=== PATIENT | female | born 1975 | race Caucasian/White ===

== ENCOUNTER 2017-02-21 11:50 | Day surgery (SDC) | payer OTHER ==
[2017-02-18 08:34] VITALS: BMI 26.6
[~2017-02-21 11:50] MED LIST: LACTATED RINGERS 1,000 ML IV SCH
[2017-02-21] MEDS ORDERED: LACTATED RINGERS 1,000 ML IV ONE (12:20)
[2017-02-21] MEDS ORDERED: LIDOCAINE 1% 20 ML VIAL (10MG/ML) FOR IV START INTRADERMA ONE (12:21)
[2017-02-21 12:25] VITALS: RESP 18; TEMP 98
[2017-02-21] MEDS ORDERED: PROPOFOL 10 MG/ML 20 ML VIAL IV ONE (13:04)
[2017-02-21] MEDS ORDERED: LIDOCAINE 1% INJ 10MG/ML (20 ML MDV) ONE (13:04)
[2017-02-21 13:51] VITALS: BP 122/88; PULSE 64
--- NOTE | 2017-02-21 13:52 | P.PCN ---
Date of Procedure: 02/21/17 Procedure(s) Performed: Procedure: 1. Esophagogastroduodenoscopy and biopsy. 2. Colonoscopy and biopsy. Preoperative diagnosis: Epigastric pain and diarrhea. Postoperative diagnosis: 1. Very small sliding hiatal hernia with no obvious esophagitis or complicated reflux disease. 2. Mild antral gastritis. 3. Colon and terminal ileum within normal limits. 4. Biopsies obtained from the duodenum , antrum, esophagus, terminal ileum and right colon. Preparation: HalfLytely prep. Sedation: Was provided by anesthesia. Brief clinical history: The patient is a 41-year-old female who was evaluated in the office for the above complaints and scheduled for this evaluation to assess for inflammatory bowel disease or other etiology. Procedure: With the patient on her left lateral decubitus position and after informed consent and adequate sedation, I passed the Olympus-GIF 160 video upper endoscope through the cricopharyngeus down the esophagus. GE junction was around 38-39 cm from the incisors and there was a very small sliding hiatal hernia. The esophagus did not show any erosions, ulcers, strictures or Zaman' s esophagus. The endoscope was then passed into the stomach which was insufflated with air and inspected in detail including the retroflex view in the cardia. There was mottling and erythema in the antrum consistent with gastritis but no ulcers or erosions. Pyloric channel, duodenal bulb, post bulbar area and descending duodenum appeared within normal limits. I obtained biopsies from the duodenum, antrum and esophagus then the endoscope was withdrawn then I proceeded with the colonoscopy. Perianal area did not show any fissures or fistulas. There were no masses felt on digital rectal examination. The Olympus CFQ 160L video colonoscope was then inserted in the rectum in the usual fashion and advanced to the cecum. I intubated the ileocecal valve and examined the terminal ileum. Terminal ileum and colon appeared healthy with no edema, erythema, friability, ulceration, exudation or spontaneous bleeding. I obtained biopsies from the terminal ileum and right colon then I retroflexed endoscope in the rectum before the endoscope was withdrawn. The patient tolerated the procedure well. Plan: The patient was reassured. Will await biopsy results and make further plans based on her course and biopsy results. I will keep you updated on her progress.
== END 2017-02-21 14:16 | disposition home or self-care (01) ==
LOC: ORWHC2ENDO 11:50
DX: K29.50 Unspecified chronic gastritis without bleeding (principal); K44.9 Diaphragmatic hernia without obstruction or gangrene; R19.7 Diarrhea, unspecified; Z72.0 Tobacco use; M79.7 Fibromyalgia; Z79.899 Other long term (current) drug therapy; Z88.1 Allergy status to other antibiotic agents; Z88.0 Allergy status to penicillin; Z88.8 Allergy status to other drugs, medicaments and biological substances
CPT/HCPCS: 88305; 88342; 45380; 43239; J2001; J2704

== ENCOUNTER 2017-05-30 16:57 | Observation (INO) | payer OTHER ==
[2017-05-30] MEDS ORDERED: SODIUM CHLORIDE 0.9% 1,000 ML IV STA (17:41)
[2017-05-30] MEDS ORDERED: ASPIRIN 81 MG CHEW PO STA (17:41)
[2017-05-30] MEDS ORDERED: MORPHINE SULFATE 4 MG/ML SYRINGE IV STA (17:41)
[2017-05-30] MEDS ORDERED: RX INFO: IV CONTRAST WAS GIVEN 1 EACH MISC MISCELLANE PRN (17:42)
[2017-05-30 17:57] LABS: Basophils # (A) 0.1 k/uL (0-0.2); Basophils % (A) 1 %; CH 30.4; CHCM 34.1; Eosinophils # (A) 0.2 k/uL (0-0.7); Eosinophils % (A) 2 %; HCT 42.4 % (34.0-46.0); HDW 2.28; HGB 14.9 gm/dL (11.4-16.0); Luc # (Auto) 0.18; Luc % (Auto) 2; Lymphocytes # (A) 3.6 k/uL (1.0-4.8); Lymphocytes % (A) 38 %; MCH 31.5 pg (25.0-35.0); MCHC 35.2 g/dL (31.0-37.0); MCV 89.5 fL (80.0-100.0); Monocytes # (A) 0.3 k/uL (0-1.0); Monocytes % (A) 3 %; Neutrophils # (A) 5.2 k/uL (1.3-7.7); Neutrophils % (A) 55 %; RBC 4.74 m/uL (3.80-5.40); RDW 12.6 % (11.5-15.5); WBC 9.6 k/uL (3.8-10.6)
[2017-05-30 18:08] LABS: HCG,Qualitative Serum Not Detected
[2017-05-30 18:12] LABS: ALT 36 U/L (9-52); AST 24 U/L (14-36); Alkaline Phosphatase 70 U/L (38-126); Anion Gap 9 mmol/L; Blood Urea Nitrogen 9 mg/dL (7-17); Calcium 9.4 mg/dL (8.4-10.2); Carbon Dioxide 23 mmol/L (22-30); Chloride 107 mmol/L (98-107); Glucose 96 mg/dL (74-99); Non-African American GFR(MDRD) >60 (>60 ml/min/1.73 sqM); Potassium 4.1 mmol/L (3.5-5.1); Sodium 139 mmol/L (137-145); Total Bilirubin 0.5 mg/dL (0.2-1.3); Total Protein 6.9 g/dL (6.3-8.2)
[2017-05-30 18:14] LABS: Partial Thromboplastin Time 25.9 sec (22.0-30.0); Prothrombin Time 10.4 sec (9.0-12.0)
[2017-05-30 18:22] LABS: Creatine Kinase 74 U/L (30-135)
[2017-05-30 18:35] LABS: Creatine Kinase MB 0.7 ng/mL (0.0-2.4); Troponin I <0.012 ng/mL (0.000-0.034)
--- NOTE | 2017-05-30 18:43 | CT ---
EXAMINATION TYPE: CT angio chest DATE OF EXAM: 05/30/2017 6:35 PM COMPARISON: 12/30/2015 HISTORY: Left sided chest pain radiating to jaw and shoulder. History of thoracic aortic aneurysm. CT DLP: 249.30 mGycm Automated exposure control for dose reduction was used. CONTRAST: CTA scan of the thorax is performed with IV Contrast, patient injected with 74 mL of Omnipaque 350, p ulmonary embolism protocol. There are 3-D post processed images.. FINDINGS: The lungs are clear of consolidation. There is no evidence of a pulmonary mass. There is no pleural e ffusion. The heart size is normal. There is no mediastinal adenopathy. There are no hilar masses. I see no brittni ling defects in the pulmonary arteries. There is mild aneurysm of the ascending aorta that measures 4 cm. There is no sign of dissection. There is no pericardial effusion. IMPRESSION: NO EVIDENCE OF PULMONARY EMBOLISM. 4 CM MILD ANEURYSM OF THE ASCENDING AORTA. NO CHANGE COMPARED TO O LD EXAM.
[2017-05-30] MEDS ORDERED: MORPHINE SULFATE 4 MG/ML SYRINGE IVP STA (19:00)
[2017-05-30] MEDS ORDERED: LORazepam 2 MG/ML SYRINGE IV STA (19:07)
[2017-05-30] MEDS ORDERED: NITROGLYCERIN SL TABS 0.4 MG TAB SUBLINGUAL PRN (19:43)
[2017-05-30] MEDS ORDERED: HEPARIN SODIUM,PORCINE 5,000 UNIT/ML 1 ML VIAL IV ONE (19:43)
[2017-05-30] MEDS ORDERED: HEPARIN SODIUM,PORCINE 5,000 UNIT/ML 1 ML VIAL IV PRN (19:43)
[2017-05-30] MEDS ORDERED: MORPHINE SULFATE 4 MG/ML SYRINGE IV PRN (19:43)
--- NOTE | 2017-05-30 19:43 | ED ---
Chest Pain HPI - General Chief Complaint: Chest Pain Stated Complaint: Chest Pain, Difficulty Breathing Time Seen by Provider: 05/30/17 17:35 Source: patient Mode of arrival: wheelchair Limitations: no limitations - History of Present Illness Initial Comments: This 41-year-old white female presents complaining of some left-sided and midsternal chest pain. She states that it will radiate up into her neck and shoulder region. It is described as a sharp type pain. It occurred while at rest. It is somewhat worse with deep inspiration. She denies any leg pain or swelling. She denies any history of DVT or PE. She does state that it came on fairly suddenly. She has a history of a thoracic aortic aneurysm at approximately 4 cm. She relates that she has not required surgery for this as of yet but does follow up with our cardiology group. She had a stress test attempted within the past couple of years but was unable to completed as she cannot do the treadmill stress test and could not tolerate the chemical stress test. She has not had any heart catheterizations. She denies any other complaints or modifying factors. - Related Data Home Medications Medication Instructions Recorded Confirmed Sertraline [Zoloft] 25 mg PO HS 05/30/17 05/30/17 Allergies Allergy/AdvReac Type Severity Reaction Status Date / Time Penicillins Allergy Unknown Anaphylaxis Verified 05/30/17 17:54 ciprofloxacin [From Cipro] Allergy Unknown Verified 02/18/17 08:25 metronidazole [From Flagyl] Allergy Swelling Verified 02/18/17 08:25 naproxen Allergy Swelling Verified 02/18/17 08:25 meloxicam [From Mobic] AdvReac Unknown Slurred Verified 05/30/17 17:54 speech, muscle jerking, chest pain diphenhydramine HCl AdvReac Rapid Verified 05/30/17 17:54 [From Benadryl] Heart Rate ibuprofen [From Motrin] AdvReac stomach Verified 05/30/17 17:54 ulcers ketorolac tromethamine AdvReac Hallucinati Verified 05/30/17 17:54 [From Toradol] ons Review of Systems ROS Statement: Those systems with pertinent positive or pertinent negative responses have been documented in the HPI. ROS Other: All systems not noted in ROS Statement are negative. Past Medical History Past Medical History: Fibromyalgia, GERD/Reflux Additional Past Medical History / Comment(s): Migraines- occiptal neuralgia, Aortic Aneurysm, states hx of stomach ulcers., diarrhea. History of Any Multi-Drug Resistant Organisms: None Reported Past Surgical History: Appendectomy, Section, Cholecystectomy, Hysterectomy, Orthopedic Surgery Additional Past Surgical History / Comment(s): ankle and knee surgery. Past Anesthesia/Blood Transfusion Reactions: Motion Sickness, Postoperative Nausea & Vomiting (PONV) Past Psychological History: Anxiety, Depression Smoking Status: Current every day smoker Past Alcohol Use History: None Reported Past Drug Use History: Marijuana - Past Family History Mother Family Medical History: No Reported History General Exam - General Exam Comments Initial Comments: GENERAL: The patient is well nourished and well hydrated. VITAL SIGNS: Heart rate, blood pressure, respiratory rate reviewed as recorded in nurse's notes. EYES: Pupils are round and reactive. Extraocular movements are intact. No conjunctival / lid redness or swelling. ENT: No external evidence of injury, swelling, or ecchymosis. Airway is patent. Throat is clear. NECK: Nontender. No swelling or evidence of injury. No subcutaneous emphysema. Trachea is midline. No thyroid mass. HEART: Regular rate and rhythm. Good peripheral pulses. LUNGS/CHEST: Breath sounds clear and equal bilaterally. No rales, rhonchi, or wheezes. No ecchymosis, subcutaneous emphysema, or tenderness. ABDOMEN: Abdomen soft without tenderness. No palpable masses or organomegaly. No peritoneal signs. No abdominal wall swelling or ecchymosis. EXTREMITIES: No extremity tenderness. Normal muscle tone and function. No thoracolumbar tenderness. NEUROLOGIC: Sensation is grossly intact. Cranial nerve exam reveals face is symmetrical, tongue is midline, speech is clear. SKIN: No abrasions or ecchymosis is noted. No induration or masses noted. PSYCHIATRIC: Alert and oriented. Appears slightly anxious at times. Limitations: no limitations Course Vital Signs 05/30/17 05/30/17 05/30/17 17:02 17:20 18:57 Temperature 97.4 F L Pulse Rate 67 62 62 Respiratory 20 16 16 Rate Blood Pressure 123/79 133/93 141/91 O2 Sat by Pulse 99 98 99 Oximetry 05/30/17 19:15 Temperature Pulse Rate 58 L Respiratory 16 Rate Blood Pressure 148/100 O2 Sat by Pulse 99 Oximetry Chest Pain MDM - MDM The patient was seen and examined. All diagnostics were reviewed. An EKG was done which shows a normal sinus rhythm at a rate of 68. No acute ST-T wave changes are identified. The [place] interval is 144, QRS duration is 86, and the QTc interval is 423. The cardiac profile labs are all essentially within normal limits. The d-dimer is elevated. The patient had a computed tomography scan of the thorax with IV contrast and this does not show any evidence of pulmonary embolism. It does show evidence of a stable 4 cm thoracic aortic aneurysm. The exact cause of her pain is not definitively determined. The possibility of acute coronary syndrome certainly is possible. It is felt as though she would benefit from admission for further treatment. She did receive some morphine with limited relief. She later receives some Ativan with slight relief. The case is discussed with the hospitalist and they're agreeable to admission with cardiology to consult. Disposition Clinical Impression: Chest pain, Unstable angina, Elevated d-dimer Disposition: [facility] Condition: Fair Time of Disposition: 19:42 Decision Date: 05/30/17 Decision Time: 19:42
[2017-05-30] MEDS ORDERED: HEPARIN SODIUM,PORCINE/D5W PMX 25,000 UNIT in DEXTROSE/WATER 1 500ML.BAG IV SCH (19:45)
[2017-05-30 20:47] VITALS: RESP 16
[2017-05-30] MEDS ORDERED: SERTRALINE 25 MG TAB PO SCH (21:00)
[2017-05-30 21:11] VITALS: TEMP 97.7
[2017-05-30] MEDS ORDERED: HYDROcodone/APAP 5-325MG 1 EACH TAB PO PRN (21:57)
[2017-05-30 23:18] VITALS: BP 119/77; PULSE 62
[2017-05-30 23:36] LABS: Creatine Kinase 64 U/L (30-135)
[2017-05-30 23:48] LABS: Creatine Kinase MB 0.6 ng/mL (0.0-2.4); Troponin I <0.012 ng/mL (0.000-0.034)
[2017-05-31] MEDS ORDERED: NITROGLYCERIN OINT 1 INCH/GM PACKET TOPICAL SCH
[2017-05-31] MEDS ORDERED: ASPIRIN 325 MG TAB PO SCH (09:00)
--- NOTE | 2017-06-20 14:31 | HP ---
HISTORY AND PHYSICAL/DISCHARGE SUMMARY: This 41 year old woman was admitted with chest pain but however, the patient left the hospital against medical advice before being seen. Please refer to the ER notes and staff notes for further information. FINAL DIAGNOSES: 1. Chest pain, possible unstable angina. 2. Elevated d. dimer. MTDD
== END 2017-05-31 00:40 | disposition left against medical advice (07) ==
LOC: EC 16:57 → 3OBS 19:43
PROVIDERS: ADMIT Hospitalist; ATTEND Hospitalist
DX: R07.9 Chest pain, unspecified (principal); R79.89 Other specified abnormal findings of blood chemistry; I71.2 Thoracic aortic aneurysm, without rupture; Z79.899 Other long term (current) drug therapy; Z88.6 Allergy status to analgesic agent; Z88.1 Allergy status to other antibiotic agents; Z88.0 Allergy status to penicillin; Z88.8 Allergy status to other drugs, medicaments and biological substances; F41.9 Anxiety disorder, unspecified; F31.9 Bipolar disorder, unspecified; F17.200 Nicotine dependence, unspecified, uncomplicated; Z53.21 Procedure and treatment not carried out due to patient leaving prior to being seen by health care provider
CPT/HCPCS: 96375 ×3; 96376; 96374; 99285; 36415; 93005; 85379; 80053; 82550; 82553; 83735; 84484; 85025; 85610; 85730; 84703; 71275; G0378; J2060; J2270; J1644 ×2; Q9967

== ENCOUNTER 2017-05-31 16:47 | Observation (INO) | payer OTHER ==
[2017-05-31] MEDS ORDERED: HYDROmorphone 1 MG/ML 1 ML SYRINGE IVP STA (17:12)
[2017-05-31] MEDS ORDERED: NITROGLYCERIN OINT 1 INCH/GM PACKET TOPICAL STA (17:15)
--- NOTE | 2017-05-31 17:15 | ED ---
Chest Pain HPI - General Chief Complaint: Chest Pain Stated Complaint: Chest Pain Time Seen by Provider: 05/31/17 17:00 Source: patient, RN notes reviewed Mode of arrival: wheelchair Limitations: no limitations - History of Present Illness Initial Comments: Is a 41-year-old female who states having chest pains yesterday. She states that sharp stabbing left sternal radiating to her jaw and neck and also to her back and left arm. She she's never pain like this before she was actually admitted yesterday with apparently some issues with her daughter. She is back today complaining of persistent pain. She also has a thoracic aortic aneurysm was 4 cm she states is been stable. She did have a CAT scan yesterday it is unknown what results were. She states is nothing new with respect to pain she' s had no cough or phlegm production she is a smoker. States the pain does get worse with movements and deep breathing. It currently as 9/10 in severity. MD Complaint: chest pain - Related Data Home Medications Medication Instructions Recorded Confirmed Sertraline [Zoloft] 25 mg PO HS 05/30/17 05/31/17 Acetaminophen [Tylenol Arthritis] 1,950 mg PO DAILY PRN 05/31/17 05/31/17 Allergies Allergy/AdvReac Type Severity Reaction Status Date / Time Penicillins Allergy Unknown Anaphylaxis Verified 05/31/17 17:41 ciprofloxacin [From Cipro] Allergy Unknown Verified 05/31/17 17:41 metronidazole [From Flagyl] Allergy Swelling Verified 05/31/17 17:41 naproxen Allergy Swelling Verified 05/31/17 17:41 meloxicam [From Mobic] AdvReac Unknown Slurred Verified 05/31/17 17:41 speech, muscle jerking, chest pain diphenhydramine HCl AdvReac Rapid Verified 05/31/17 17:41 [From Benadryl] Heart Rate ibuprofen [From Motrin] AdvReac stomach Verified 05/31/17 17:41 ulcers ketorolac tromethamine AdvReac Hallucinati Verified 05/31/17 17:41 [From Toradol] ons Review of Systems ROS Statement: Those systems with pertinent positive or pertinent negative responses have been documented in the HPI. ROS Other: All systems not noted in ROS Statement are negative. EKG Findings - EKG Results: EKG: interpreted by JALEN, sinus rhythm (Sinus rhythm a rate is 62 MD interval 148 QRS duration 80 QT since QTC of 396/41 futile PVCs no acute ST-T wave changes) Past Medical History Past Medical History: Fibromyalgia, GERD/Reflux Additional Past Medical History / Comment(s): Migraines- occiptal neuralgia, Aortic aneurysm, endometreosis, anxiety/depression. "heart skips a beat". states hx of stomach ulcers. pt stated her norm is loose/ diarrhea stools sometimes 3 or more a day. History of Any Multi-Drug Resistant Organisms: None Reported Past Surgical History: Appendectomy, Section, Cholecystectomy, Hysterectomy, Orthopedic Surgery Additional Past Surgical History / Comment(s): lt ankle reconstructive sx,rt knee surgery.egd/colonoscopy w/bx-pt stated did'nt gets results. Past Anesthesia/Blood Transfusion Reactions: Motion Sickness, Postoperative Nausea & Vomiting (PONV) Past Psychological History: Anxiety, Depression Smoking Status: Current every day smoker - Past Family History Mother Family Medical History: Thyroid Disorder Additional Family Medical History / Comment(s): hashimotos' Father Family Medical History: No Reported History Additional Family Medical History / Comment(s): "healthy" General Exam - General Exam Comments Initial Comments: This is a well-developed well-nourished awake alert oriented times 3 female Limitations: no limitations General appearance: alert, anxious Head exam: Present: atraumatic, normocephalic, normal inspection Eye exam: Present: normal appearance, PERRL, EOMI. Absent: scleral icterus, conjunctival injection, periorbital swelling ENT exam: Present: normal exam, mucous membranes moist Neck exam: Present: normal inspection. Absent: tenderness, meningismus, lymphadenopathy Respiratory exam: Present: normal lung sounds bilaterally, chest wall tenderness. Absent: respiratory distress, wheezes, rales, rhonchi, stridor Cardiovascular Exam: Present: regular rate, normal rhythm, normal heart sounds. Absent: systolic murmur, diastolic murmur, rubs, gallop, clicks GI/Abdominal exam: Present: soft, normal bowel sounds. Absent: distended, tenderness, guarding, rebound, rigid Extremities exam: Present: normal inspection, full ROM, normal capillary refill. Absent: tenderness, pedal edema, joint swelling, calf tenderness Back exam: Present: normal inspection Neurological exam: Present: alert, oriented X3, CN II-XII intact Psychiatric exam: Present: normal affect, normal mood Skin exam: Present: warm, dry, intact, normal color. Absent: rash Course Vital Signs 05/31/17 05/31/17 05/31/17 16:48 17:02 17:37 Temperature 97.3 F L Pulse Rate 64 63 75 Respiratory 16 16 20 Rate Blood Pressure 127/86 134/87 138/91 O2 Sat by Pulse 99 100 98 Oximetry 05/31/17 19:00 Temperature 98.5 F Pulse Rate 56 L Respiratory 20 Rate Blood Pressure 139/67 O2 Sat by Pulse 96 Oximetry Chest Pain MDM - MDM I did review the imaging and reports no acute findings also reviewed yesterday started. Patient currently has no pain she will be admitted however further remainder of her cardiac evaluation. CAT scan did show the descending aortic aneurysm which appears be unchanged. I did discuss case with Dr. Partida. Disposition Clinical Impression: Chest pain, Unstable angina, Thoracic aortic aneurysm without rupture Disposition: ADMITTED IP TO THIS HOSP Referrals: Susan Cruz MD [Primary Care Provider] - 1-2 days
[2017-05-31 17:30] LABS: Basophils # (A) 0.1 k/uL (0-0.2); Basophils % (A) 1 %; CH 30.5; CHCM 34.5; Eosinophils # (A) 0.2 k/uL (0-0.7); Eosinophils % (A) 1 %; HCT 39.9 % (34.0-46.0); HDW 2.29; HGB 14.1 gm/dL (11.4-16.0); Luc % (Auto) 1; Lymphocytes # (A) 3.3 k/uL (1.0-4.8); Lymphocytes % (A) 28 %; MCH 31.3 pg (25.0-35.0); MCHC 35.3 g/dL (31.0-37.0); MCV 88.7 fL (80.0-100.0); Mean Platelet Volume 6.7; Monocytes # (A) 0.4 k/uL (0-1.0); Monocytes % (A) 4 %; Neutrophils # (A) 7.9 k/uL (1.3-7.7); Neutrophils % (A) 66 %; RDW 12.6 % (11.5-15.5); WBC (Perox) 11.48
[2017-05-31 17:43] LABS: Partial Thromboplastin Time 24.9 sec (22.0-30.0); Prothrombin Time 10.4 sec (9.0-12.0)
[2017-05-31 17:48] LABS: ALT 56 U/L (9-52); AST 30 U/L (14-36); Alkaline Phosphatase 64 U/L (38-126); Amylase 34 U/L (30-110); Anion Gap 8 mmol/L; Blood Urea Nitrogen 9 mg/dL (7-17); Calcium 9.5 mg/dL (8.4-10.2); Carbon Dioxide 23 mmol/L (22-30); Chloride 110 mmol/L (98-107); Glucose 91 mg/dL (74-99); Non-African American GFR(MDRD) >60 (>60 ml/min/1.73 sqM); Potassium 4.3 mmol/L (3.5-5.1); Sodium 141 mmol/L (137-145); Total Bilirubin 0.4 mg/dL (0.2-1.3); Total Protein 6.4 g/dL (6.3-8.2)
[2017-05-31 17:51] LABS: Creatine Kinase 57 U/L (30-135)
[2017-05-31 18:04] LABS: Creatine Kinase MB 0.5 ng/mL (0.0-2.4); Troponin I <0.012 ng/mL (0.000-0.034)
--- NOTE | 2017-05-31 18:06 | XR ---
EXAMINATION TYPE: XR chest 2V DATE OF EXAM: 05/31/2017 COMPARISON: 12/30/2015 HISTORY: Chest pain TECHNIQUE: Frontal and lateral views of the chest are obtained. FINDINGS: Heart and mediastinum are normal. Lungs are clear. Diaphragm is normal. There are chest le ads. Bony thorax is intact. IMPRESSION: Normal chest. No change.
[2017-05-31] MEDS ORDERED: NITROGLYCERIN SL TABS 0.4 MG TAB SUBLINGUAL PRN (20:05)
[2017-05-31] MEDS ORDERED: ACETAMINOPHEN TAB 500 MG TAB PO PRN (20:07)
[2017-05-31] MEDS ORDERED: ONDANSETRON 4 MG/2 ML VIAL IVP STA (20:28)
[2017-05-31] MEDS ORDERED: HYDROmorphone 1 MG/ML 1 ML SYRINGE IM STA (20:41)
[2017-05-31] MEDS ORDERED: SERTRALINE 25 MG TAB PO SCH (21:00)
[2017-05-31 23:37] VITALS: BMI 26.2
[2017-06-01 00:01] LABS: Creatine Kinase 52 U/L (30-135)
[2017-06-01 00:14] LABS: Creatine Kinase MB 0.5 ng/mL (0.0-2.4); Troponin I <0.012 ng/mL (0.000-0.034)
[2017-06-01] MEDS: NITROGLYCERIN OINT 1 INCH/GM PACKET TOPICAL SCH ×2 (00:29→06:06)
[2017-06-01 06:32] LABS: Cholesterol 233 mg/dL (<200); HDL Cholesterol 61 mg/dL (40-60); Triglycerides 201 mg/dL (<150)
[2017-06-01 06:40] LABS: Creatine Kinase 48 U/L (30-135)
[2017-06-01 06:53] LABS: Creatine Kinase MB 0.5 ng/mL (0.0-2.4); Troponin I <0.012 ng/mL (0.000-0.034)
--- NOTE | 2017-06-01 09:51 | P.CRDCN ---
History of Present Illness Consult date: 06/01/17 Requesting physician: Romaine Partida Consult reason: chest pain Chief complaint: Chest pain History of present illness: This is a 41-year-old female with history of nicotine dependence, anxiety and depression, fibromyalgia, GERD, aortic aneurysm for which she is followed by Dr. Carrillo. She presented to the hospital the day prior to yesterday with symptoms of midsternal chest pain which she describes as a tight feeling with associated sharp pain, she states it radiates into her throat and neck area and into her shoulder. She does state that the pain worsens with taking a deep breath. She signed out AMA out of the emergency room day prior to yesterday because of an emergency at home, and came back to the emergency room yesterday. Pain has been constant since that time. EKG shows a normal sinus rhythm with no acute changes. Chest x-ray does not reveal any acute changes. Blood pressure on arrival 126/80 with heart rate in the 60s, 99% on room air. The blood cell count 12.0, hemoglobin 14, platelet count 263. D- dimer 1.4, potassium 4.3, BUN 9, creatinine 0.8. Troponins have been negative 3. Cholesterol 233, triglycerides 31, LDL 132, HDL 61. Patient did undergo an EGD in January of this year which revealed a very small sliding hiatal hernia with no evidence of esophagitis or complicated reflux disease. Mild antral gastritis. Colon and terminal ileum normal. Biopsies were obtained from the duodenum antrum esophagus terminal ileum and right colon. Patient underwent a CT of the chest 2 days ago which did not reveal any evidence of a pulmonary embolism. 4 cm mild aneurysm of the ascending aorta noted. Time of my examination this morning, patient states it still hurts to take a deep breath. She states that she has had stress test performed in the past by Dr. Delatorre, but she has been unable to complete them because she becomes extremely anxious. She is unable to do a walking stress test. Past Medical History Past Medical History: Fibromyalgia, GERD/Reflux Additional Past Medical History / Comment(s): Migraines- occiptal neuralgia, Aortic aneurysm, endometreosis, anxiety/depression. "heart skips a beat". states hx of stomach ulcers. pt stated her norm is loose/ diarrhea stools sometimes 3 or more a day. History of Any Multi-Drug Resistant Organisms: None Reported Past Surgical History: Appendectomy, Section, Cholecystectomy, Hysterectomy, Orthopedic Surgery Additional Past Surgical History / Comment(s): lt ankle reconstructive sx,rt knee surgery.egd/colonoscopy w/bx-pt stated did'nt gets results. Past Anesthesia/Blood Transfusion Reactions: Motion Sickness, Postoperative Nausea & Vomiting (PONV) Past Psychological History: Anxiety, Depression Additional Psychological History / Comment(s): pt lives with sig other. has a pet dog, and lizard. pt is independant. no home cares services. no medical equipment. pt does factory work. Smoking Status: Current every day smoker - Past Family History Mother Family Medical History: Thyroid Disorder Additional Family Medical History / Comment(s): hashimotos' Father Family Medical History: No Reported History Additional Family Medical History / Comment(s): "healthy" Medications and Allergies Home Medications Medication Instructions Recorded Confirmed Type Sertraline [Zoloft] 25 mg PO HS 05/30/17 05/31/17 History Acetaminophen [Tylenol Arthritis] 1,950 mg PO DAILY PRN 05/31/17 05/31/17 History Allergies Allergy/AdvReac Type Severity Reaction Status Date / Time Penicillins Allergy Unknown Anaphylaxis Verified 05/31/17 17:41 ciprofloxacin [From Cipro] Allergy Unknown Verified 05/31/17 17:41 metronidazole [From Flagyl] Allergy Swelling Verified 05/31/17 17:41 naproxen Allergy Swelling Verified 05/31/17 17:41 meloxicam [From Mobic] AdvReac Unknown Slurred Verified 05/31/17 17:41 speech, muscle jerking, chest pain diphenhydramine HCl AdvReac Rapid Verified 05/31/17 17:41 [From Benadryl] Heart Rate ibuprofen [From Motrin] AdvReac stomach Verified 05/31/17 17:41 ulcers ketorolac tromethamine AdvReac Hallucinati Verified 05/31/17 17:41 [From Toradol] ons Physical Exam Vitals: Vital Signs Temp Pulse Pulse Resp BP BP Pulse Ox 06/01/17 07:58 97.7 F 58 L 18 110/68 99 06/01/17 04:00 97.6 F 54 L 16 119/80 100 05/31/17 23:40 97.7 F 57 L 16 137/88 99 05/31/17 21:00 97.6 F 49 L 16 135/91 98 05/31/17 20:52 98.2 F 05/31/17 20:48 98.2 F 71 16 144/89 99 05/31/17 20:47 98 05/31/17 19:00 98.5 F 56 L 20 139/67 96 05/31/17 17:37 75 20 138/91 98 05/31/17 17:02 63 16 134/87 100 05/31/17 16:48 97.3 F L 64 16 127/86 99 Intake and Output 05/31/17 06/01/17 06/01/17 22:59 06:59 14:59 Other: # Voids 1 Weight 80.739 kg 80.739 kg PHYSICAL EXAMINATION: HEENT: [Head is atraumatic, normocephalic. Pupils equal, round. Neck is supple. There is no elevated jugular venous pressure.] HEART EXAMINATION: [Heart S1, S2 normal. No murmur or gallop heard.] CHEST EXAMINATION:[ Lungs are clear to auscultation and precussion. No chest wall tenderness is noted on palpation or with deep breathing.] ABDOMEN: [ Soft, nontender. Bowel sounds are heard. No organomegaly noted]. EXTREMITIES:[ 2+ peripheral pulses with no evidence of peripheral edema and no calf tenderness noted]. NEUROLOGIC [patient is awake, alert and oriented -3.] . Results 05/31/17 17:25 05/31/17 17:25 Cardiac Enzymes 05/31/17 05/31/17 05/31/17 Range/Units 17:25 17:25 23:16 AST 30 (14-36) U/L CK-MB (CK-2) 0.5 0.5 (0.0-2.4) ng/mL Troponin I <0.012 <0.012 (0.000-0.034) ng/mL 06/01/17 Range/Units 05:42 AST (14-36) U/L CK-MB (CK-2) 0.5 (0.0-2.4) ng/mL Troponin I <0.012 (0.000-0.034) ng/mL Coagulation 05/31/17 Range/Units 17:25 PT 10.4 (9.0-12.0) sec APTT 24.9 (22.0-30.0) sec Lipids 06/01/17 Range/Units 05:42 Triglycerides 201 H (<150) mg/dL Cholesterol 233 H (<200) mg/dL HDL Cholesterol 61 H (40-60) mg/dL CBC 05/31/17 Range/Units 17:25 WBC 12.0 H (3.8-10.6) k/uL RBC 4.50 (3.80-5.40) m/uL Hgb 14.1 (11.4-16.0) gm/dL Hct 39.9 (34.0-46.0) % Plt Count 263 (150-450) k/uL Comprehensive Metabolic Panel 05/31/17 Range/Units 17:25 Sodium 141 (137-145) mmol/L Potassium 4.3 (3.5-5.1) mmol/L Chloride 110 H (98-107) mmol/L Carbon Dioxide 23 (22-30) mmol/L BUN 9 (7-17) mg/dL Creatinine 0.80 (0.52-1.04) mg/dL Glucose 91 (74-99) mg/dL Calcium 9.5 (8.4-10.2) mg/dL AST 30 (14-36) U/L ALT 56 H (9-52) U/L Alkaline Phosphatase 64 (38-126) U/L Total Protein 6.4 (6.3-8.2) g/dL Albumin 3.9 (3.5-5.0) g/dL Current Medications Generic Name Dose Route Start Last Admin Trade Name Freq PRN Reason Stop Dose Admin Acetaminophen 1,000 mg 05/31/17 20:07 05/31/17 22:23 Tylenol Tab PO 1,000 mg QID PRN Administration Pain Nitroglycerin 1 inch 06/01/17 00:00 06/01/17 06:06 Nitro-Bid Oint TOPICAL Not Given Q6HR RIGO Nitroglycerin 0.4 mg 05/31/17 20:05 Nitrostat SUBLINGUAL Q5M PRN Chest Pain Sertraline HCl 25 mg 05/31/17 21:00 05/31/17 22:19 Zoloft PO 25 mg HS RIGO Administration Intake and Output 05/31/17 06/01/17 06/01/17 22:59 06:59 14:59 Other: # Voids 1 Weight 80.739 kg 80.739 kg 05/31/17 17:25 05/31/17 17:25 EKG Interpretations (text) EKG shows a normal sinus rhythm with no acute changes Assessment and Plan Plan: Assessment and plan #1 atypical chest pain, troponins negative 3. EKG shows normal sinus rhythm with no acute changes. CTA of the chest performed 2 days ago negative for pulmonary embolism. #2 nicotine dependence #3 aortic aneurysm of 4 cm, being followed by Dr. Delatorre in the office. #4 anxiety and depression #5 fibromyalgia #6 GERD Plan We will discontinue the Nitropaste, obtain an echocardiogram with Doppler study. Patient has been advised to undergo a stress testing for more definitive diagnosis. Yasmin scan will be ordered today. Further recommendations to follow. DNP note has been reviewed, I agree with a documented findings and plan of care. Patient was seen and examined.
[2017-06-01] MEDS ORDERED: AMINOPHYLLINE 500 MG/20 ML VIAL IV PRN (10:08)
[2017-06-01] MEDS ORDERED: REGADENOSON 0.4 MG/5 ML SYRINGE IV ONE (10:08)
--- NOTE | 2017-06-01 11:48 | ECHOF ---
Referral Reason:chest pain MEASUREMENTS -------- HEIGHT: 175.3 cm WEIGHT: 80.7 kg BP: 110/68 IVSd: 0.8 cm (0.6 - 1.1) LVIDd: 4.1 cm (3.9 - 5.3) LVPWd: 1.0 cm (0.6 - 1.1) IVSs: 1.6 cm LVIDs: 2.1 cm LVPWs: 1.3 cm Ao Diam: 3.7 cm (2.0 - 3.7) AV Cusp: 1.8 cm (1.5 - 2.6) LA Diam: 2.6 cm (2.7 - 3.8) MV EXCURSION: 12.972 mm (> 18.000) MV EF SLOPE: 108 mm/s (70 - 150) EPSS: 1.2 cm MV E Scotty: 0.76 m/s MV DecT: 161 ms MV A Scotty: 0.56 m/s MV E/A Ratio: 1.36 RAP: 5.00 mmHg RVSP: 20.69 mmHg FINDINGS -------- Sinus rhythm. This was a technically good study. Left ventricular wall thickness is normal. Overall left ventricular systolic function is normal with, an EF between 55 - 60 %. The right ventricle is normal in size and function. The left atrium is normal in size. The right atrium is normal in size. The aortic valve is trileaflet, and appears structurally normal. No aortic stenosis or regurgitation. Mild mitral regurgitation is present. Mild tricuspid regurgitation present. The right ventricular systolic pressure, as measured by Doppler, is 20.69mmHg. Pulmonic valve appears structurally normal. The aortic root size is normal. The pericardium is normal. CONCLUSIONS -------- 1. Sinus rhythm. 2. Mild tricuspid regurgitation present. 3. The right ventricular systolic pressure, as measured by Doppler, is 20.69mmHg. 4. Pulmonic valve appears structurally normal. 5. The aortic root size is normal. 6. The pericardium is normal. 7. This was a technically good study. 8. Left ventricular wall thickness is normal. 9. Overall left ventricular systolic function is normal with, an EF between 55 - 60 %. 10. The right ventricle is normal in size and function. 11. The left atrium is normal in size. 12. The right atrium is normal in size. 13. The aortic valve is trileaflet, and appears structurally normal. No aortic stenosis or regurgitation. 14. Mild mitral regurgitation is present. STRATEGY MANAGER: Michelle Arredondo RDCS
--- NOTE | 2017-06-01 11:58 | P.STRESS ---
- Stress Test Note Stress Test Results/Findings: Exam Performed: NM stress lexiscan cardiolite Exam Date: 06/01/17 Height: 5 ft 9 in Weight: 80.739 kg Protocol: parviz Stage: 5 Duration of Exercise: 5:00 Resting Heart Rate: 59 Resting Blood Pressure: 110/78 Maximum Achieved Heart Rate: 90 Maximum Achieved Blood Pressure: 119/69 85% PMHR: 153 100% PMHR: 180 METS: n/a Technologist Comment: Stress Test Results/Findings: Baseline EKG shows sinus rhythm normal lites normal intervals and was given Lexiscan as per protocol did not have chest pain or diagnostic ST segment depression Conclusions: Negative stress test by EKG criteria Cardiolite portion of the stress test will be reported separately
--- NOTE | 2017-06-01 12:53 | NM ---
EXAMINATION TYPE: NM stress lexiscan cardiolite DATE OF EXAM: 06/01/2017 COMPARISON: NONE HISTORY: Chest pain TECHNIQUE: After the intravenous administration of 11 mCi Tc 99m Sestamibi - Cardiolite resting SPEC T images acquired 27.5 minutes post injection. The patient received 0.4mg Lexiscan, 45 mCi Tc 99m Sestamibi - Stress images obtained 46 minutes post injection FINDINGS: Review of stress and rest SPECT images demonstrates small area of fixed defect with a additional smal l area of stress-induced reversibility involving the anterior wall the myocardium.. Gated analysis d emonstrates an estimated left ventricular ejection fraction of 51 %. Report called to the observation unit. IMPRESSION: Small area of stress-induced reversibility anterior wall myocardium.
--- NOTE | 2017-06-01 14:17 | P.PN ---
Progress Note - Text Stress test was reviewed by Dr. VC brina fierro which revealed a fixed defect in the anterior wall region likely secondary to breast artifact. Patient's pain was very very atypical in nature. She may be able to be discharged home from cardiology's perspective and we will follow her up as an outpatient. DNP note has been reviewed, I agree with a documented findings and plan of care. Patient was seen and examined.
[2017-06-01 15:31] VITALS: BP 108/67; PULSE 62; RESP 16; TEMP 98.7
--- NOTE | 2017-06-01 16:03 | P.HPIM ---
History of Present Illness H&P Date: 06/01/17 (Discharge summary as well) 41-year-old female comes in to the hospital with complaints of left-sided chest pain that has radiated to her neck her left shoulder and left arm. Patient states that she woke up with this pain. Patient has had these episodes of pain for the last 2 years. This time the pain was significantly worse and was constant, sharp in nature no alleviating or exacerbating factors are reported hence came into the emergency room for further evaluation Patient underwent a stress test which did show areas of anterior reproducible ischemia. Patient however has been having these symptoms for the last 2 years EKG in the emergency room did not reveal ST-T wave changes Cardiac enzymes 3 have been negative Patient does have history of depression Currently smokes one half pack of cigarettes no significant family history is reported Review of Systems All systems: negative (Noted in HPI) Past Medical History Past Medical History: Fibromyalgia, GERD/Reflux Additional Past Medical History / Comment(s): Migraines- occiptal neuralgia, Aortic aneurysm, endometreosis, anxiety/depression. "heart skips a beat". states hx of stomach ulcers. pt stated her norm is loose/ diarrhea stools sometimes 3 or more a day. History of Any Multi-Drug Resistant Organisms: None Reported Past Surgical History: Appendectomy, Section, Cholecystectomy, Hysterectomy, Orthopedic Surgery Additional Past Surgical History / Comment(s): lt ankle reconstructive sx,rt knee surgery.egd/colonoscopy w/bx-pt stated did'nt gets results. Past Anesthesia/Blood Transfusion Reactions: Motion Sickness, Postoperative Nausea & Vomiting (PONV) Past Psychological History: Anxiety, Depression Additional Psychological History / Comment(s): pt lives with sig other. has a pet dog, and lizard. pt is independant. no home cares services. no medical equipment. pt does factory work. Smoking Status: Current every day smoker - Past Family History Mother Family Medical History: Thyroid Disorder Additional Family Medical History / Comment(s): hashimotos' Father Family Medical History: No Reported History Additional Family Medical History / Comment(s): "healthy" Medications and Allergies Home Medications Medication Instructions Recorded Confirmed Type Sertraline [Zoloft] 25 mg PO HS 05/30/17 05/31/17 History Acetaminophen [Tylenol Arthritis] 1,950 mg PO DAILY PRN 05/31/17 05/31/17 History Allergies Allergy/AdvReac Type Severity Reaction Status Date / Time Penicillins Allergy Unknown Anaphylaxis Verified 05/31/17 17:41 ciprofloxacin [From Cipro] Allergy Unknown Verified 05/31/17 17:41 metronidazole [From Flagyl] Allergy Swelling Verified 05/31/17 17:41 naproxen Allergy Swelling Verified 05/31/17 17:41 meloxicam [From Mobic] AdvReac Unknown Slurred Verified 05/31/17 17:41 speech, muscle jerking, chest pain diphenhydramine HCl AdvReac Rapid Verified 05/31/17 17:41 [From Benadryl] Heart Rate ibuprofen [From Motrin] AdvReac stomach Verified 05/31/17 17:41 ulcers ketorolac tromethamine AdvReac Hallucinati Verified 05/31/17 17:41 [From Toradol] ons Physical Exam Vitals: Vital Signs Temp Pulse Pulse Resp BP BP Pulse Ox 06/01/17 15:30 98.7 F 62 16 108/67 98 06/01/17 13:12 97.8 F 57 L 19 109/75 97 06/01/17 07:58 97.7 F 58 L 18 110/68 99 06/01/17 04:00 97.6 F 54 L 16 119/80 100 05/31/17 23:40 97.7 F 57 L 16 137/88 99 05/31/17 21:00 97.6 F 49 L 16 135/91 98 05/31/17 20:52 98.2 F 05/31/17 20:48 98.2 F 71 16 144/89 99 05/31/17 20:47 98 05/31/17 19:00 98.5 F 56 L 20 139/67 96 05/31/17 17:37 75 20 138/91 98 05/31/17 17:02 63 16 134/87 100 05/31/17 16:48 97.3 F L 64 16 127/86 99 Intake and Output 06/01/17 06/01/17 06/01/17 06:59 14:59 22:59 Intake Total 240 Balance 240 Intake: Oral 240 Other: Voiding Method Toilet # Voids 1 Weight 80.739 kg Physical exam Gen. appearance oriented 3 in no distress Neck is supple no JVD Lungs good air entry clear to auscultation no rhonchi or wheezing Heart S1-S2 heard regular rate and rhythm no murmurs appreciated Abdomen is soft nontender no organomegaly bowel sounds are intact Neurologically cranial nerves II-12 grossly intact no focal motor or sensory deficits noted Skin no abnormalities appreciated Results CBC & Chem 7: 05/31/17 17:25 05/31/17 17:25 Labs: Abnormal Lab Results - Last 24 Hours (Table) 05/31/17 05/31/17 05/31/17 Range/Units 17:25 17:25 17:25 WBC 12.0 H (3.8-10.6) k/uL Neutrophils # 7.9 H (1.3-7.7) k/uL D-Dimer 1.48 H (<0.60) mg/L FEU Chloride 110 H (98-107) mmol/L ALT 56 H (9-52) U/L Triglycerides (<150) mg/dL Cholesterol (<200) mg/dL LDL Cholesterol, Calc (0-99) mg/dL HDL Cholesterol (40-60) mg/dL 06/01/17 Range/Units 05:42 WBC (3.8-10.6) k/uL Neutrophils # (1.3-7.7) k/uL D-Dimer (<0.60) mg/L FEU Chloride (98-107) mmol/L ALT (9-52) U/L Triglycerides 201 H (<150) mg/dL Cholesterol 233 H (<200) mg/dL LDL Cholesterol, Calc 132 H (0-99) mg/dL HDL Cholesterol 61 H (40-60) mg/dL Assessment and Plan Plan: #1 atypical chest pain ACS is ruled out #2 ongoing tobacco use #3 depression Plan Patient's chest pain does appear to be atypical. There were no wall motion abnormality is an echocardiogram however there was a positive nuclear stress test hence is deemed a nondiagnostic test patient's recommend a follow-up cardiology on an outpatient basis Currently symptom free at the time of discharge Patient is recommended to quit smoking. DID suggest underlying anxiety however patient did not want to discuss further
== END 2017-06-01 16:18 | disposition home or self-care (01) ==
LOC: EC 16:47 → 3OBS 20:05
PROVIDERS: ADMIT Internal Medicine; ATTEND Internal Medicine
DX: R07.89 Other chest pain (principal); M54.2 Cervicalgia; R68.84 Jaw pain; F17.200 Nicotine dependence, unspecified, uncomplicated; I71.2 Thoracic aortic aneurysm, without rupture; R94.31 Abnormal electrocardiogram [ECG] [EKG]; K21.9 Gastro-esophageal reflux disease without esophagitis; M79.7 Fibromyalgia; G43.909 Migraine, unspecified, not intractable, without status migrainosus; F41.9 Anxiety disorder, unspecified; F32.9 Major depressive disorder, single episode, unspecified; Z87.11 Personal history of peptic ulcer disease; K44.9 Diaphragmatic hernia without obstruction or gangrene; Z79.899 Other long term (current) drug therapy; Z88.6 Allergy status to analgesic agent; Z88.1 Allergy status to other antibiotic agents; Z88.5 Allergy status to narcotic agent; Z88.0 Allergy status to penicillin; Z88.2 Allergy status to sulfonamides; Z88.8 Allergy status to other drugs, medicaments and biological substances
CPT/HCPCS: 96372; 96374; 96375; 99285; 36415; 93005; 93017; 93306; 85379; 83880; 80061; 80053; 82150; 82550 ×2; 82553 ×2; 83690; 83735; 84484 ×2; 85025; 85610; 85730; 71020; 78452; G0378 ×2; A9500; J2405; J1170; J2785

== ENCOUNTER 2017-06-06 06:43 | Day surgery (SDC) | payer OTHER ==
[2017-06-03 11:39] VITALS: BMI 26.6
[~2017-06-06 06:43] MED LIST changes: +ALPRAZolam 0.25 MG TAB PO PRN; +ALPRAZolam 0.5 MG TAB PO PRN; +ATORVASTATIN 80 MG TAB PO STA; -LACTATED RINGERS 1,000 ML IV SCH; +NITROGLYCERIN SL TABS 0.4 MG TAB SUBLINGUAL PRN; +SODIUM CHLORIDE 0.9% 1,000 ML in EMPTY BAG 1 BAG IV ONE
[2017-06-06 07:22] VITALS: RESP 16; TEMP 98
[2017-06-06] MEDS ORDERED: fentaNYL (PF) 50 MCG/ML 2 ML AMP ONE (08:10)
[2017-06-06] MEDS ORDERED: MIDAZOLAM 2 MG/2 ML VIAL ONE (08:10)
[2017-06-06] MEDS ORDERED: fentaNYL (PF) 50 MCG/ML 2 ML AMP IV ONE (08:12)
[2017-06-06] MEDS ORDERED: MIDAZOLAM 2 MG/2 ML VIAL IV ONE (08:12)
[2017-06-06] MEDS ORDERED: LIDOCAINE 2% INJ 20 MG/ML SQ ONE (08:13)
[2017-06-06] MEDS ORDERED: IOHEXOL 350 MG/ML 125ML BOTTLE INJ ONE (08:37)
[2017-06-06] MEDS ORDERED: RX INFO: IV CONTRAST WAS GIVEN 1 EACH MISC MISCELLANE PRN (08:39)
[2017-06-06] MEDS ORDERED: SODIUM CHLORIDE 0.9% 1,000 ML IV SCH (08:45)
--- NOTE | 2017-06-06 09:25 | CC ---
INDICATION: Unstable angina with abnormal stress test. PROCEDURE NOTE: After obtaining informed consent, left heart catheterization and coronary angiogram are preformed via the right femoral artery using standard Cyndee catheters. The patient tolerated the procedure well without any obvious immediate complications. A femoral angiogram was performed and decision was made for manual hemostasis. Vascular access was obtained after 3 attempts and there is a small soft hematoma at the end of the procedure. FINDINGS: 1. HEMODYNAMICS: Left ventricular end-diastolic pressure is 12 to 15 mm. There is no significant gradient across the aortic valve. 2. LEFT VENTRICULOGRAM: Left ventriculogram is not performed. 3. ANGIOGRAPHIC DATA: LEFT MAIN CORONARY ARTERY: The left main coronary artery is a normal size vessel and is free of stenosis, divides into left anterior descending coronary artery and circumflex coronary artery. Circumflex coronary artery and its branches are free of significant stenosis. LAD gives off small caliber diagonal branches. Both the first and the second diagonal branch have ostial stenosis; the second diagonal branch more than the first. It is about 70% to 80% stenosed. Right coronary artery is a large dominant vessel and is free of significant stenosis. CONCLUSIONS: An 80% to 90% stenosis involving the ostial portion of the small caliber second diagonal branch. PLAN: I reviewed angiographic data with the on-call model home sales greeter Dr. Yvonne Roberts and given the relative small size of the diagonal branch, decision was made for medical therapy at this time. I discussed these issues at length with the patient. She understands and is in agreement with the plans. Patient will use aspirin and Imdur.I will treat the patient with Imdur and start her on lipid lowering agents. EDGAR
[2017-06-06 12:32] VITALS: BP 115/61; PULSE 80
== END 2017-06-06 15:04 | disposition home or self-care (01) ==
LOC: CATHCVL 06:43
PROVIDERS: ATTEND Internal Medicine Cardiovascular Disease
DX: I25.110 Atherosclerotic heart disease of native coronary artery with unstable angina pectoris (principal); R94.39 Abnormal result of other cardiovascular function study; I71.2 Thoracic aortic aneurysm, without rupture; I10 Essential (primary) hypertension; Z88.6 Allergy status to analgesic agent; Z88.1 Allergy status to other antibiotic agents; Z88.8 Allergy status to other drugs, medicaments and biological substances; F17.210 Nicotine dependence, cigarettes, uncomplicated; Z79.82 Long term (current) use of aspirin; Z79.899 Other long term (current) drug therapy
CPT/HCPCS: 93458; C1894; C1769; J2001; J2250; J3010; Q9967

== ENCOUNTER 2017-06-13 19:36 | Emergency (ER) | payer OTHER ==
[2017-06-13 19:50] VITALS: PULSE 72
--- NOTE | 2017-06-13 21:15 | US ---
EXAMINATION TYPE: US lower ext pseudo artery RT DATE OF EXAM: 06/13/2017 COMPARISON: NONE CLINICAL HISTORY: Pain after heart cath x1 week ago. EXAM PERFORMED: Grayscale and color Doppler duplex imaging performed of the groin, post cardiac anrde ter to assess for pseudoaneurysm. SIDE PERFORMED: Right Color and Waveform Doppler performed to assess for the presence of pseudoaneurysm; Is there ultrasound evidence of a pseudoaneurysm: No Is there evidence of AV shunting: No Is there a fluid collection present: No No abnormality visualized on this exam IMPRESSION: No evidence of pseudoaneurysm involving the right femoral artery.
[2017-06-13] MEDS ORDERED: traMADol 50 MG STARTER PACK 3 TAB BTL PO STA (21:45)
--- NOTE | 2017-06-13 21:46 | ED ---
Extremity Problem HPI - General Chief complaint: Extremity Problem,Nontraumatic Stated complaint: Post op problem. Catheter R leg Time Seen by Provider: 06/13/17 20:21 Source: patient, RN notes reviewed, old records reviewed Mode of arrival: ambulatory Limitations: no limitations - History of Present Illness Initial comments: 42-year-old female presents emergency room chief complaint of right leg pain on week after having a cardiac cath. Patient reports that she was walking on the stairs and felt a popping sensation. Patient reports she feels her entire leg is pulsating the pain originates over the site where she's had the incisions and cardiac cath. She denies any difficulty in range of motion. She reports the pain is exacerbated with hip extension. Denies any recent falls or any concern for osseous abnormalities. Patient states surgical back to work shortly after she had the catheterization thinks she probably should've wait longer.Patient denies any recent fever, chills, shortness of breath, chest pain , back pain, abdominal pain, nausea vomiting, numbness or tingling, dysuria or hematuria, constipation or diarrhea, headaches or visual changes, or any other current symptoms - Related Data Home Medications Medication Instructions Recorded Confirmed Sertraline [Zoloft] 25 mg PO HS 05/30/17 06/13/17 Previous Rx's Medication Instructions Recorded traMADol HCl [Ultram] 50 mg PO Q6H PRN #12 tab 06/13/17 Allergies Allergy/AdvReac Type Severity Reaction Status Date / Time Penicillins Allergy Unknown YEAST Verified 06/13/17 20:03 INFECTIONS ciprofloxacin [From Cipro] Allergy Anaphylaxis Verified 06/13/17 20:03 metronidazole [From Flagyl] Allergy Anaphylaxis Verified 06/13/17 20:03 naproxen Allergy Anaphylaxis Verified 06/13/17 20:03 meloxicam [From Mobic] AdvReac Unknown Slurred Verified 06/13/17 20:03 speech, muscle jerking, chest pain diphenhydramine HCl AdvReac Rapid Verified 06/13/17 20:03 [From Benadryl] Heart Rate ibuprofen [From Motrin] AdvReac stomach Verified 06/13/17 20:03 ulcers ketorolac tromethamine AdvReac Hallucinati Verified 06/13/17 20:03 [From Toradol] ons Review of Systems ROS Statement: Those systems with pertinent positive or pertinent negative responses have been documented in the HPI. ROS Other: All systems not noted in ROS Statement are negative. Past Medical History Past Medical History: Chest Pain / Angina, Fibromyalgia, GERD/Reflux, Neurologic Disorder Additional Past Medical History / Comment(s): Migraines- occiptal neuralgia, Aortic aneurysm, endometreosis, anxiety/depression. "heart skips a beat". states hx of stomach ulcers. pt stated her norm is loose/ diarrhea stools sometimes 3 or more a day. History of Any Multi-Drug Resistant Organisms: None Reported Past Surgical History: Appendectomy, Section, Cholecystectomy, Hysterectomy, Orthopedic Surgery Additional Past Surgical History / Comment(s): lt ankle reconstructive sx,rt knee surgery.egd/colonoscopy w/bx-pt stated did'nt gets results. Past Anesthesia/Blood Transfusion Reactions: Motion Sickness, Postoperative Nausea & Vomiting (PONV) Past Psychological History: Anxiety, Depression Smoking Status: Current every day smoker - Past Family History Mother Family Medical History: Thyroid Disorder Additional Family Medical History / Comment(s): hashimotos' Father Family Medical History: No Reported History Additional Family Medical History / Comment(s): "healthy" General Exam - General Exam Comments Initial Comments: 42-year-old female. No acute distress. Limitations: no limitations General appearance: alert, in no apparent distress Head exam: Present: atraumatic, normocephalic, normal inspection Eye exam: Present: normal appearance, PERRL, EOMI. Absent: scleral icterus, conjunctival injection, periorbital swelling ENT exam: Present: normal exam, normal oropharynx, mucous membranes moist Neck exam: Present: normal inspection. Absent: tenderness, meningismus, lymphadenopathy Respiratory exam: Present: normal lung sounds bilaterally. Absent: respiratory distress, wheezes, rales, rhonchi, stridor Cardiovascular Exam: Present: regular rate, normal rhythm, normal heart sounds. Absent: systolic murmur, diastolic murmur, rubs, gallop, clicks GI/Abdominal exam: Present: soft, normal bowel sounds. Absent: distended, tenderness, guarding, rebound, rigid Extremities exam: Present: normal inspection, full ROM, normal capillary refill. Absent: tenderness, pedal edema, joint swelling, calf tenderness Right Hip exam: Present: full ROM. Absent: normal inspection (Is a bruising over her femoral artery area.) Upper Leg exam: Present: normal inspection, full ROM Knee exam: Present: normal inspection, full ROM Lower Leg exam: Present: normal inspection, full ROM Ankle exam: Present: normal inspection, full ROM Foot/Toe exam: Present: normal inspection, full ROM Neurovascular tendon exam: Present: no vascular compromise Gait: observed and normal Back exam: Present: normal inspection Neurological exam: Present: alert, oriented X3, CN II-XII intact Psychiatric exam: Present: normal affect, normal mood Skin exam: Present: warm, dry, intact, normal color. Absent: rash Course Vital Signs 06/13/17 06/13/17 19:47 22:00 Temperature 98.2 F 98.0 F Pulse Rate 72 72 Respiratory 18 16 Rate Blood Pressure 132/90 137/80 O2 Sat by Pulse 99 99 Oximetry Medical Decision Making - Medical Decision Making 42-year-old female presents emergency room chief complaint of right leg pain on week after having a cardiac cath. Patient reports that she was walking on the stairs and felt a popping sensation. Patient reports she feels her entire leg is pulsating. She denies any difficulty in range of motion. Patient has some bruising over the lower artery and vein. Full range of motion. No significant swelling in the lower extremity. A good personnel also less than 2 second capillary refill. She has full range of motion of the knee foot and toes. US Some of the pelvis shows no evidence of pseudoaneurysm. Patient is informed of the results. Discussed that she should follow-up with her primary care provider. Discussed with the patient pain medication in the day off of work. Patient agrees treatment plan and resting and icing and elevating 70. Return parameters were discussed. - Radiology Data Radiology results: report reviewed Ultrasound shows no evidence of pseudoaneurysm. Disposition Clinical Impression: Right leg pain, History of cardiac catheterization Disposition: HOME SELF-CARE Condition: Good Instructions: Hip Contusion (ED) Additional Instructions: Patient is to rest, ice, elevate extremity. Take pain medication as prescribed. Follow-up with her primary care provider. Return to the emergency department if any alarming signs or symptoms occur. Prescriptions: traMADol HCl [Ultram] 50 mg PO Q6H PRN #12 tab PRN Reason: Pain Referrals: Susan Cruz MD [Primary Care Provider] - 1-2 days Time of Disposition: 21:44
[2017-06-13 22:08] VITALS: BP 137/80; RESP 16; TEMP 98
== END 2017-06-13 22:00 | disposition home or self-care (01) ==
LOC: EC 19:36
DX: M79.604 Pain in right leg (principal); Z98.890 Other specified postprocedural states; F32.9 Major depressive disorder, single episode, unspecified; F17.200 Nicotine dependence, unspecified, uncomplicated; Z88.0 Allergy status to penicillin; Z88.1 Allergy status to other antibiotic agents; Z88.6 Allergy status to analgesic agent; Z88.8 Allergy status to other drugs, medicaments and biological substances; Z79.899 Other long term (current) drug therapy
CPT/HCPCS: 93975; 99284

== ENCOUNTER 2017-06-25 19:49 | Emergency (ER) | payer OTHER ==
[2017-06-25 19:57] VITALS: TEMP 97.8
[2017-06-25] MEDS ORDERED: fentaNYL (PF) 50 MCG/ML 2 ML AMP IV ONE (20:11)
--- NOTE | 2017-06-25 20:16 | ED ---
Chest Pain HPI - General Chief Complaint: Chest Pain Stated Complaint: Chest Pain Time Seen by Provider: 06/25/17 19:54 Source: patient, RN notes reviewed, old records reviewed Mode of arrival: wheelchair Limitations: no limitations - History of Present Illness Initial Comments: This is a 42-year-old female who presents with complains of sharp left-sided chest pain about an hour and half ago when she was at work she states is sharp strain type feeling as 9/10 severity she did take 2 nitroglycerin and she was instructed without relief. She currently has some diaphoresis with it no shortness of breath no cough or phlegm production no other complaints at this time. She was at work in a local restaurant at the time. Her cath report from the cath done on 06/06/17 the circumflex artery and its branches were free of significant stenosis LAD does however give a small caliber diagonal branches with a first and second diagonal branches have she'll stenosis the second diagonal branch more than a first is about 70-80% stenosis the other arteries were unremarkable. MD Complaint: chest pain - Related Data Home Medications Medication Instructions Recorded Confirmed Sertraline [Zoloft] 25 mg PO HS 05/30/17 06/25/17 Nitroglycerin Sl Tabs [Nitrostat] 0.4 mg SUBLINGUAL Q5M PRN 06/25/17 06/25/17 Allergies Allergy/AdvReac Type Severity Reaction Status Date / Time Penicillins Allergy Unknown YEAST Verified 06/25/17 20:09 INFECTIONS ciprofloxacin [From Cipro] Allergy Anaphylaxis Verified 06/25/17 20:09 metronidazole [From Flagyl] Allergy Anaphylaxis Verified 06/25/17 20:09 naproxen Allergy Anaphylaxis Verified 06/25/17 20:09 meloxicam [From Mobic] AdvReac Unknown Slurred Verified 06/25/17 20:09 speech, muscle jerking, chest pain diphenhydramine HCl AdvReac Rapid Verified 06/25/17 20:09 [From Benadryl] Heart Rate ibuprofen [From Motrin] AdvReac stomach Verified 06/25/17 20:09 ulcers ketorolac tromethamine AdvReac Hallucinati Verified 06/25/17 20:09 [From Toradol] ons Review of Systems ROS Statement: Those systems with pertinent positive or pertinent negative responses have been documented in the HPI. ROS Other: All systems not noted in ROS Statement are negative. EKG Findings - EKG Results: EKG: interpreted by ERMD, sinus rhythm, normal axis, normal QRS, normal ST/T, no acute changes (EKG shows a normal sinus rhythm a 61 appear of 01 44 QRS 76 QT since QTC of 14/[address]-T wave changes as compared to an EKG dated 06/01/1720 no morphological changes the one at that time hours of bradycardia.) Past Medical History Past Medical History: Chest Pain / Angina, Fibromyalgia, GERD/Reflux, Neurologic Disorder Additional Past Medical History / Comment(s): Migraines- occiptal neuralgia, Aortic aneurysm, endometreosis, anxiety/depression. "heart skips a beat". states hx of stomach ulcers. pt stated her norm is loose/ diarrhea stools sometimes 3 or more a day. History of Any Multi-Drug Resistant Organisms: None Reported Past Surgical History: Appendectomy, Section, Cholecystectomy, Heart Catheterization, Hysterectomy, Orthopedic Surgery Additional Past Surgical History / Comment(s): lt ankle reconstructive sx,rt knee surgery.egd/colonoscopy w/bx-pt stated did'nt gets results. Past Anesthesia/Blood Transfusion Reactions: Motion Sickness, Postoperative Nausea & Vomiting (PONV) Past Psychological History: Anxiety, Depression Smoking Status: Current every day smoker Past Alcohol Use History: Occasional Past Drug Use History: None Reported - Past Family History Mother Family Medical History: Thyroid Disorder Additional Family Medical History / Comment(s): hashimotos' Father Family Medical History: No Reported History Additional Family Medical History / Comment(s): "healthy" General Exam - General Exam Comments Initial Comments: This is a well-developed well-nourished awake alert oriented 3 female Limitations: no limitations General appearance: alert, anxious Head exam: Present: atraumatic, normocephalic, normal inspection Eye exam: Present: normal appearance, PERRL, EOMI. Absent: scleral icterus, conjunctival injection, periorbital swelling ENT exam: Present: normal exam, mucous membranes moist Neck exam: Present: normal inspection, tenderness (Reproducible tenderness palpation over left lateral neck musculature and trapezius muscles.). Absent: meningismus, lymphadenopathy Respiratory exam: Present: normal lung sounds bilaterally, chest wall tenderness (Reproducible tenderness palpation of left anterior chest wall). Absent: respiratory distress, wheezes, rales, rhonchi, stridor Cardiovascular Exam: Present: regular rate, normal rhythm, normal heart sounds. Absent: systolic murmur, diastolic murmur, rubs, gallop, clicks GI/Abdominal exam: Present: soft, normal bowel sounds. Absent: distended, tenderness, guarding, rebound, rigid Extremities exam: Present: normal inspection, full ROM, normal capillary refill. Absent: tenderness, pedal edema, joint swelling, calf tenderness Back exam: Present: normal inspection Neurological exam: Present: alert, oriented X3, CN II-XII intact Psychiatric exam: Present: normal affect, normal mood Skin exam: Present: warm, dry, intact, normal color. Absent: rash Course Vital Signs 06/25/17 06/25/17 19:53 21:43 Temperature 97.8 F Pulse Rate 62 66 Respiratory 18 16 Rate Blood Pressure 129/77 134/64 O2 Sat by Pulse 98 Oximetry Chest Pain MDM - MDM Patient is feeling somewhat improved I did discuss findings with her. The CAT scan was finally read showing no evidence of acute pulmonary emboli no change in the aorta. Patient be discharged the presentation is consistent with chest wall pain/costochondritis. Disposition Clinical Impression: Chest wall syndrome, Costalchondritis Disposition: HOME SELF-CARE Condition: Good Instructions: Costochondritis (ED) Additional Instructions: Take the pain medication have a home follow-up with her doctor and return when necessary also warm compresses to the effected area Referrals: Susan Cruz MD [Primary Care Provider] - 1-2 days
[2017-06-25 20:22] LABS: Basophils # (A) 0.1 k/uL (0-0.2); Basophils % (A) 1 %; CH 30.7; CHCM 33.9; Eosinophils # (A) 0.2 k/uL (0-0.7); Eosinophils % (A) 2 %; HCT 40.5 % (34.0-46.0); HDW 2.33; Luc # (Auto) 0.16; Luc % (Auto) 2; Lymphocytes % (A) 44 %; MCH 31.4 pg (25.0-35.0); MCHC 34.5 g/dL (31.0-37.0); Mean Platelet Volume 6.8; Monocytes # (A) 0.3 k/uL (0-1.0); Monocytes % (A) 4 %; Neutrophils # (A) 4.3 k/uL (1.3-7.7); Neutrophils % (A) 47 %; RBC 4.46 m/uL (3.80-5.40); RDW 12.7 % (11.5-15.5); WBC (Perox) 8.81
[2017-06-25 20:33] LABS: ALT 38 U/L (9-52); AST 19 U/L (14-36); Alkaline Phosphatase 71 U/L (38-126); Anion Gap 9 mmol/L; Blood Urea Nitrogen 14 mg/dL (7-17); Carbon Dioxide 24 mmol/L (22-30); Chloride 107 mmol/L (98-107); Glucose 80 mg/dL (74-99); Magnesium 1.9 mg/dL (1.6-2.3); Non-African American GFR(MDRD) 50 (>60 ml/min/1.73 sqM); Potassium 3.9 mmol/L (3.5-5.1); Sodium 140 mmol/L (137-145); Total Bilirubin 0.2 mg/dL (0.2-1.3); Total Protein 6.7 g/dL (6.3-8.2)
[2017-06-25 20:35] LABS: Partial Thromboplastin Time 27.5 sec (22.0-30.0); Prothrombin Time 10.6 sec (9.0-12.0)
[2017-06-25 20:54] LABS: Creatine Kinase 74 U/L (30-135)
[2017-06-25] MEDS ORDERED: RX INFO: IV CONTRAST WAS GIVEN 1 EACH MISC MISCELLANE PRN (21:02)
--- NOTE | 2017-06-25 21:02 | XR ---
EXAMINATION TYPE: XR chest 2V DATE OF EXAM: 06/25/2017 COMPARISON: May 31, 2017. HISTORY: Chest pain TECHNIQUE: Frontal and lateral views of the chest are obtained. FINDINGS: There is no focal air space opacity, pleural effusion, or pneumothorax seen. The cardiac silhouette size is within normal limits. The osseous structures are intact. The appearance of the c hest is unchanged. IMPRESSION: No acute cardiopulmonary process.
[2017-06-25 21:06] LABS: Creatine Kinase MB 0.5 ng/mL (0.0-2.4); Troponin I <0.012 ng/mL (0.000-0.034)
[2017-06-25] MEDS ORDERED: SODIUM CHLORIDE 0.9% 1,000 ML IV STA (21:36)
[2017-06-25] MEDS ORDERED: ONDANSETRON 4 MG/2 ML VIAL IVP STA (21:37)
[2017-06-25 21:44] VITALS: RESP 16
--- NOTE | 2017-06-25 23:38 | CT ---
EXAM: CTA CHEST INDICATION: 42-year-old female with pain. COMPARISON: CT chest, PE protocol 05/30/2017. TECHNIQUE: Multiple axial CT images of the chest with IV contrast material. Multiplanar reformations are submitted. MIP reconstructions were created. DOSE: CTDI is 61.5 mGy and DLP is 307.20 mGy-cm DOSE REDUCTION: This CT exam was performed using one or more of the following dose reduction techniques: automated exposure control, adjustment of the mA and/or kV according to patient size, and/or use of iterative reconstruction technique. FINDINGS: No pulmonary embolus is identified. Redemonstrated aneurysmal dilation of the ascending thoracic aorta is redemonstrated measuring 4.0 cm. The aorta is otherwise unremarkable. The cardiomediastinal structures are normal. No adenopathy or effusions. The lungs are clear. The osseous structures are unremarkable. Gallbladder is surgically absent. IMPRESSION: 1. No evidence of pulmonary embolus or acute chest process. 2. Aneurysmal dilation of the ascending thoracic aorta measuring 4.0 cm. 3. No change since 05/30/2017.
[2017-06-25 23:53] VITALS: BP 119/87; PULSE 66
== END 2017-06-25 23:56 | disposition home or self-care (01) ==
LOC: EC 19:49
DX: M94.0 Chondrocostal junction syndrome [Tietze] (principal); R07.1 Chest pain on breathing; F32.9 Major depressive disorder, single episode, unspecified; F17.200 Nicotine dependence, unspecified, uncomplicated; Z79.899 Other long term (current) drug therapy; Z88.0 Allergy status to penicillin; Z88.1 Allergy status to other antibiotic agents; Z88.6 Allergy status to analgesic agent; Z88.8 Allergy status to other drugs, medicaments and biological substances
CPT/HCPCS: 36415; 93005; 85379; 80053; 82550; 82553; 83735; 84484; 85025; 85610; 85730; 71020; 71275; 99285; 96374; 96375; 96361 ×2; Q9967; J2405; J3010

== ENCOUNTER 2018-04-11 13:59 | Emergency (ER) | payer OTHER ==
[2018-04-11 14:05] VITALS: RESP 18
[2018-04-11] MEDS ORDERED: RX INFO: IV CONTRAST WAS GIVEN 1 EACH MISC MISCELLANE PRN (14:50)
[2018-04-11] MEDS ORDERED: ASPIRIN 81 MG PO STA (14:52)
[2018-04-11] MEDS ORDERED: DIAZEPAM 5 MG/ML 2 ML INJ IVP STA (14:52)
--- NOTE | 2018-04-11 15:01 | ED ---
Chest Pain HPI - General Chief Complaint: Chest Pain Stated Complaint: chest & arm pain/SOB Time Seen by Provider: 04/11/18 14:29 Source: patient Mode of arrival: wheelchair Limitations: no limitations - History of Present Illness Initial Comments: Patient is a 42-year-old female presented with a chief complaint of chest pain and right shoulder pain that started 2 days ago. She has significant medical history of occipital neuralgia, fibromyalgia. Patient describes her pain as sharp and worse with movement. She cannot identify an inciting incident. Aggravating factors are movement of the right upper extremity. There are no alleviating factors. Timing is constant. Patient denies any slurred speech, syncopal episodes, nausea or vomiting. Patient states that she drove herself and her daughter to the emergency department today - Related Data Home Medications Medication Instructions Recorded Confirmed No Known Home Medications [No 04/11/18 04/11/18 Known Home Medications] Allergies Allergy/AdvReac Type Severity Reaction Status Date / Time Penicillins Allergy Unknown YEAST Verified 04/11/18 14:51 INFECTIONS ciprofloxacin [From Cipro] Allergy Anaphylaxis Verified 04/11/18 14:51 metronidazole [From Flagyl] Allergy Anaphylaxis Verified 04/11/18 14:51 naproxen Allergy Anaphylaxis Verified 04/11/18 14:51 meloxicam [From Mobic] AdvReac Unknown Slurred Verified 04/11/18 14:51 speech, muscle jerking, chest pain diphenhydramine HCl AdvReac Rapid Verified 04/11/18 14:51 [From Benadryl] Heart Rate ibuprofen [From Motrin] AdvReac stomach Verified 04/11/18 14:51 ulcers ketorolac tromethamine AdvReac Hallucinati Verified 04/11/18 14:51 [From Toradol] ons Review of Systems ROS Statement: Those systems with pertinent positive or pertinent negative responses have been documented in the HPI. ROS Other: All systems not noted in ROS Statement are negative. Cardiovascular: Reports: chest pain Musculoskeletal: Reports: arthralgia (Shoulder pain) Neurological: Reports: paresthesias Past Medical History Past Medical History: Chest Pain / Angina, Fibromyalgia, GERD/Reflux, Neurologic Disorder Additional Past Medical History / Comment(s): Migraines- occiptal neuralgia, Aortic aneurysm, endometreosis, anxiety/depression. "heart skips a beat". states hx of stomach ulcers. pt stated her norm is loose/ diarrhea stools sometimes 3 or more a day. History of Any Multi-Drug Resistant Organisms: None Reported Past Surgical History: Appendectomy, Section, Cholecystectomy, Heart Catheterization, Hysterectomy, Orthopedic Surgery Additional Past Surgical History / Comment(s): lt ankle reconstructive sx,rt knee surgery.egd/colonoscopy w/bx-pt stated did'nt gets results. Past Anesthesia/Blood Transfusion Reactions: Motion Sickness, Postoperative Nausea & Vomiting (PONV) Past Psychological History: Anxiety, Depression Smoking Status: Current every day smoker Past Alcohol Use History: Occasional Past Drug Use History: None Reported - Past Family History Mother Family Medical History: Thyroid Disorder Additional Family Medical History / Comment(s): hashimotos' Father Family Medical History: No Reported History Additional Family Medical History / Comment(s): "healthy" General Exam Limitations: no limitations General appearance: alert, in no apparent distress Head exam: Present: atraumatic, normocephalic Eye exam: Present: normal appearance, PERRL, EOMI Pupils: Present: normal accommodation. Absent: unequal ENT exam: Present: normal exam, mucous membranes moist Neck exam: Present: normal inspection. Absent: tenderness Respiratory exam: Present: normal lung sounds bilaterally. Absent: respiratory distress, wheezes Cardiovascular Exam: Present: regular rate, normal rhythm GI/Abdominal exam: Present: soft. Absent: distended, tenderness Rectal exam: Present: deferred Extremities exam: Present: tenderness (Patient is tenderness palpation of the paraspinal muscles along the right shoulder.) Back exam: Present: normal inspection, muscle spasm (right shoulder pain to palpation) Neurological exam: Present: alert, oriented X3, CN II-XII intact, normal gait, other (Patient has weakness of the right upper extremity states she is not able to move it. When I grabbed the patient's hand and lift her arm up and ask her to squeeze my hand she is able to hold her arm against gravity without issue. Patient is otherwise neurovascularly intact. She is able to ambulate well without assistance.) Skin exam: Present: warm, dry, intact Course Vital Signs 04/11/18 04/11/18 04/11/18 14:02 14:55 15:58 Temperature 98.3 F Pulse Rate 87 59 L Respiratory 18 18 18 Rate Blood Pressure 144/86 156/90 O2 Sat by Pulse 97 99 Oximetry Chest Pain MDM - MDM Patient presents with chief complaint of chest pain and right shoulder pain. On initial evaluation, vital signs are stable, patient is in no acute distress. EKG on arrival shows normal sinus rhythm with a rate of 67 bpm, EKG is otherwise unremarkable. At this time, doubt central neurologic process to explain right arm weakness. Exam is somewhat suspect. Patient reevaluated basic cardiac labs, patient will have a computed tomography scan of the head. 4:41 PM Lab evaluation of this patient is unremarkable. CT of the head without contrast shows no acute intracranial abnormality. CT angios of the head and neck shows no evidence of stenosis or aneurysm. On reevaluation, patient is feeling improved. Impression is Musculoskeletal back pain. The patient was instructed on use of Motrin and Tylenol for pain. She was instructed to follow up with primary care in 1-2 days, return to the emergency department if symptoms worsen or change. Disposition Clinical Impression: Shoulder pain, Chest pain Disposition: HOME SELF-CARE Condition: Good Instructions: Chest Pain (ED) Is patient prescribed a controlled substance at d/c from ED?: No Referrals: Susan Curz MD [Primary Care Provider] - 1-2 days
[2018-04-11 15:22] LABS: Basophils # (A) 0.1 k/uL (0-0.2); Basophils % (A) 1 %; Eosinophils # (A) 0.2 k/uL (0-0.7); Eosinophils % (A) 2 %; HCT 44.9 % (34.0-46.0); HGB 14.9 gm/dL (11.4-16.0); Lymphocytes # (A) 3.1 k/uL (1.0-4.8); Lymphocytes % (A) 34 %; MCH 29.3 pg (25.0-35.0); MCHC 33.3 g/dL (31.0-37.0); Mean Platelet Volume 6.4; Monocytes # (A) 0.3 k/uL (0-1.0); Monocytes % (A) 3 %; Neutrophils # (A) 5.2 k/uL (1.3-7.7); Neutrophils % (A) 58 %; Platelet Count 317 k/uL (150-450); RDW 12.5 % (11.5-15.5)
[2018-04-11 15:30] LABS: Calcium 9.9 mg/dL (8.4-10.2); Potassium 5.4 mmol/L (3.5-5.1)
--- NOTE | 2018-04-11 15:30 | XR ---
EXAMINATION TYPE: XR chest 2V DATE OF EXAM: 04/11/2018 COMPARISON: Prior chest 06/25/2017 HISTORY: Chest pain and shortness of breath TECHNIQUE: Frontal and lateral views of the chest are obtained. FINDINGS: There is no focal air space opacity, pleural effusion, or pneumothorax seen. The cardiac silhouette size is within normal limits. The osseous structures are intact. IMPRESSION: No acute cardiopulmonary process.
--- NOTE | 2018-04-11 16:14 | CT ---
EXAMINATION TYPE: CT angio head neck DATE OF EXAM: 04/11/2018 COMPARISON: NONE HISTORY: 42-year-old female neck and chest pain TECHNIQUE: Contiguous axial scanning of the head and neck performed with IV Contrast, patient injecte d with 65 mL of Isovue 370. Coronal/sagittal MIP reconstructions performed. 3-D reconstructions gener ated on a dedicated independent workstation. CT DLP: 313.60 mGycm Automated exposure control for dose reduction was used. FINDINGS: Neck: Conventional arch vessel branching anatomy. Arch vessel origins are patent. Both vertebral artery origins are patent and the vertebral arteries are patent throughout their cours e. The right common and internal carotid arteries are patent. Focal tortuosity of the upper right ICA. The left common and internal carotid arteries are widely patent with focal tortuosity of the upper le ft ICA. Head: No large vessel intracranial occlusion or significant stenosis seen. Aneurysmal change is not identif ied. IMPRESSION: UNREMARKABLE CTA HEAD AND NECK.
--- NOTE | 2018-04-11 16:14 | CT ---
EXAMINATION TYPE: CT brain wo con DATE OF EXAM: 04/11/2018 COMPARISON: 05/17/2013 HISTORY: 42-year-old female with neck and chest pain TECHNIQUE: Examination was done in axial plane without intravenous contrast. Coronal and sagittal r econstructions performed. CT DLP: 986.50 mGycm Automated exposure control for dose reduction was used. FINDINGS: There is no evidence of acute intracranial hemorrhage, acute ischemic changes, mass, mass-effect, or extra-axial fluid collection. There is no effacement of cerebral sulci or basal subarachnoid cister ns. There is no hydrocephalus. There is no midline shift. Parks-white matter distinction is preserv ed. Paranasal sinuses and mastoid air cells are well pneumatized. Orbits and globes are intact. IMPRESSION: No acute intracranial abnormality seen.
[2018-04-11 16:52] VITALS: BP 130/85; PULSE 65; TEMP 97
== END 2018-04-11 16:51 | disposition home or self-care (01) ==
LOC: EC 13:59
DX: R07.9 Chest pain, unspecified (principal); M25.511 Pain in right shoulder; F17.200 Nicotine dependence, unspecified, uncomplicated; Z88.0 Allergy status to penicillin; Z88.1 Allergy status to other antibiotic agents; Z88.6 Allergy status to analgesic agent; Z88.8 Allergy status to other drugs, medicaments and biological substances
CPT/HCPCS: 36415; 93005; 83880; 80048; 84484; 85025; 71046; 70496; 70450; 70498; 99285; 96374; J3360; Q9967

== ENCOUNTER 2018-06-02 16:07 | Emergency (ER) | payer OTHER ==
--- NOTE | 2018-06-02 16:56 | XR ---
EXAMINATION TYPE: XR shoulder complete RT DATE OF EXAM: 06/02/2018 COMPARISON: NONE HISTORY: Shoulder pain TECHNIQUE: 3 views FINDINGS: I see no fracture nor dislocation. Glenohumeral joint is intact. There are no pathologic ca lcifications. IMPRESSION: Negative right shoulder exam.
--- NOTE | 2018-06-02 16:57 | XR ---
EXAMINATION TYPE: XR cervical spine limited DATE OF EXAM: 06/02/2018 COMPARISON: NONE HISTORY: Pain after falling TECHNIQUE: 3 views FINDINGS: Cervical vertebra have normal spacing and alignment. Posterior elements are intact. [place] axial facet joint is normal. There are no cervical ribs. IMPRESSION: Normal cervical spine
--- NOTE | 2018-06-02 17:02 | ED ---
Fall HPI - General Chief Complaint: Fall Stated Complaint: Fall Time Seen by Provider: 06/02/18 16:17 Source: patient, RN notes reviewed, old records reviewed Mode of arrival: ambulatory - History of Present Illness Initial Comments: 42 year old female with CC of right shoulder injury after she slipped on a pool deck 1 day ago. Reports pain with any ROM of the shoulder. She denies any previous injuries. She reports no. paresthesia. No elbow wrist or hand pain. Reports the pain radiates up towards your neck. - Related Data Previous Rx's Medication Instructions Recorded Ibuprofen [Motrin] 600 mg PO Q8HR PRN #20 tab 06/02/18 traMADol HCL [Ultram] 50 mg PO Q4HR PRN 3 Days #18 tab 06/02/18 Allergies Allergy/AdvReac Type Severity Reaction Status Date / Time Penicillins Allergy Unknown YEAST Verified 06/02/18 17:07 INFECTIONS ciprofloxacin [From Cipro] Allergy Anaphylaxis Verified 06/02/18 17:07 metronidazole [From Flagyl] Allergy Anaphylaxis Verified 06/02/18 17:07 naproxen Allergy Anaphylaxis Verified 06/02/18 17:07 meloxicam [From Mobic] AdvReac Unknown Slurred Verified 06/02/18 17:07 speech, muscle jerking, chest pain diphenhydramine HCl AdvReac Rapid Verified 06/02/18 17:07 [From Benadryl] Heart Rate ibuprofen [From Motrin] AdvReac stomach Verified 06/02/18 17:07 ulcers ketorolac tromethamine AdvReac Hallucinati Verified 06/02/18 17:07 [From Toradol] ons Review of Systems ROS Statement: Those systems with pertinent positive or pertinent negative responses have been documented in the HPI. ROS Other: All systems not noted in ROS Statement are negative. Past Medical History Past Medical History: Chest Pain / Angina, Fibromyalgia, GERD/Reflux, Neurologic Disorder Additional Past Medical History / Comment(s): Migraines- occiptal neuralgia, Aortic aneurysm, endometreosis, anxiety/depression. "heart skips a beat". states hx of stomach ulcers. pt stated her norm is loose/ diarrhea stools sometimes 3 or more a day. History of Any Multi-Drug Resistant Organisms: None Reported Past Surgical History: Appendectomy, Section, Cholecystectomy, Heart Catheterization, Hysterectomy, Orthopedic Surgery Additional Past Surgical History / Comment(s): lt ankle reconstructive sx,rt knee surgery.egd/colonoscopy w/bx-pt stated did'nt gets results. Past Anesthesia/Blood Transfusion Reactions: Motion Sickness, Postoperative Nausea & Vomiting (PONV) Past Psychological History: Anxiety, Depression Smoking Status: Current every day smoker Past Alcohol Use History: Occasional Past Drug Use History: None Reported - Past Family History Mother Family Medical History: Thyroid Disorder Additional Family Medical History / Comment(s): hashimotos' Father Family Medical History: No Reported History Additional Family Medical History / Comment(s): "healthy" General Exam - General Exam Comments Initial Comments: Well appearing 42 year old female, no distress. Limitations: no limitations General appearance: alert, in no apparent distress Head exam: Present: atraumatic, normocephalic, normal inspection Eye exam: Present: normal appearance, PERRL, EOMI. Absent: scleral icterus, conjunctival injection, periorbital swelling ENT exam: Present: normal exam, mucous membranes moist Neck exam: Present: normal inspection. Absent: tenderness, meningismus, lymphadenopathy Respiratory exam: Present: normal lung sounds bilaterally. Absent: respiratory distress, wheezes, rales, rhonchi, stridor Cardiovascular Exam: Present: regular rate, normal rhythm, normal heart sounds. Absent: systolic murmur, diastolic murmur, rubs, gallop, clicks GI/Abdominal exam: Present: soft, normal bowel sounds. Absent: distended, tenderness, guarding, rebound, rigid Extremities exam: Present: normal inspection, full ROM, normal capillary refill. Absent: tenderness, pedal edema, joint swelling, calf tenderness Right Shoulder Exam: Present: tenderness (over posterior shoulder, supraspinatus and R cervical paraspinal muscle). Absent: normal inspection, full ROM Upper Arm exam: Present: normal inspection, full ROM Elbow exam: Present: normal inspection, full ROM Forearm Wrist exam: Present: normal inspection, full ROM Hand Wrist exam: Present: normal inspection Back exam: Present: normal inspection, full ROM Neurological exam: Present: alert, oriented X3, CN II-XII intact Psychiatric exam: Present: normal affect, normal mood Skin exam: Present: warm, dry, intact, normal color. Absent: rash Course Vital Signs 06/02/18 06/02/18 16:07 17:23 Temperature 97.6 F 97.8 F Pulse Rate 72 78 Respiratory 18 16 Rate Blood Pressure 146/92 131/70 O2 Sat by Pulse 100 96 Oximetry Medical Decision Making - Medical Decision Making 42 year old female with R shoulder injury after falling. She has pain with ROM of shoulder. Unable to abduct more than 40 degrees. Patient xray of shoulder and cpsine are negative. Discusse drotator cuff injury or tear. She will follow up with ortho. Given Rx for pain medication and note for work. REturn parameters discussed. - Radiology Data Radiology results: report reviewed Cervical vertebrae normal spacing and alignment. Posterior elements are intact. And told Dinh facet joint is normal. No cervical ribs. Right shoulder exam is negative for any acute process. Glenohumeral joint is intact. No calcifications. Disposition Clinical Impression: Right shoulder strain, Rotator cuff injury Disposition: HOME SELF-CARE Condition: Good Instructions: Rotator Cuff Injury (ED) Additional Instructions: Patient is take anti-inflammatory medication for pain such as Motrin Tylenol. Patient to remain in sling but continue to do some range of motion as he did not want to develop frozen shoulder syndrome. Patient should follow-up with coding support specialist. Return to emergency department if any alarming signs or symptoms occur. Prescriptions: Ibuprofen [Motrin] 600 mg PO Q8HR PRN #20 tab PRN Reason: Pain traMADol HCL [Ultram] 50 mg PO Q4HR PRN 3 Days #18 tab PRN Reason: Pain Is patient prescribed a controlled substance at d/c from ED?: No When asked, does pt state using other controlled substances?: No If prescribed controlled substance>3 days was MAPS reviewed?: No If opioid is for acute pain is fill amount 7 days or less?: No If Rx opioid, was Start Talking consent form obtained?: No Referrals: Susan Cruz MD [Primary Care Provider] - 1-2 days Tony Mayers MD [STAFF PHYSICIAN] - 1-2 days Time of Disposition: 17:03
[2018-06-02 17:23] VITALS: BP 131/70; PULSE 78; RESP 16; TEMP 97.8
== END 2018-06-02 17:23 | disposition home or self-care (01) ==
LOC: EC 16:07
DX: S46.011A Strain of muscle(s) and tendon(s) of the rotator cuff of right shoulder, initial encounter (principal); F17.200 Nicotine dependence, unspecified, uncomplicated; Z95.818 Presence of other cardiac implants and grafts; Z88.0 Allergy status to penicillin; Z88.1 Allergy status to other antibiotic agents; Z88.6 Allergy status to analgesic agent; Z88.8 Allergy status to other drugs, medicaments and biological substances; W01.0XXA Fall on same level from slipping, tripping and stumbling without subsequent striking against object, initial encounter; Y92.34 Swimming pool (public) as the place of occurrence of the external cause
CPT/HCPCS: 72040; 99284

== ENCOUNTER 2018-06-05 15:50 | Observation (INO) | payer OTHER ==
--- NOTE | 2018-06-05 18:08 | XR ---
EXAMINATION TYPE: XR chest 2V DATE OF EXAM: 06/05/2018 COMPARISON: 04/11/2018 HISTORY: Chest pain TECHNIQUE: Frontal and lateral views of the chest are obtained. FINDINGS: Heart and mediastinum are normal. Lungs are clear. Diaphragm is normal. Bony thorax is int act. IMPRESSION: Normal chest. No change.
[2018-06-05 18:09] LABS: Basophils # (A) 0.1 k/uL (0-0.2); Basophils % (A) 1 %; Eosinophils # (A) 0.1 k/uL (0-0.7); Eosinophils % (A) 2 %; HCT 43.5 % (34.0-46.0); HGB 14.7 gm/dL (11.4-16.0); Lymphocytes # (A) 2.9 k/uL (1.0-4.8); Lymphocytes % (A) 42 %; MCH 29.9 pg (25.0-35.0); MCHC 33.9 g/dL (31.0-37.0); MCV 88.2 fL (80.0-100.0); Mean Platelet Volume 6.4; Monocytes # (A) 0.2 k/uL (0-1.0); Monocytes % (A) 4 %; Neutrophils # (A) 3.5 k/uL (1.3-7.7); Neutrophils % (A) 50 %; Platelet Count 317 k/uL (150-450); RBC 4.93 m/uL (3.80-5.40); RDW 12.7 % (11.5-15.5); WBC 6.9 k/uL (3.8-10.6)
[2018-06-05 18:18] LABS: Albumin 4.6 g/dL (3.5-5.0); Calcium 10.1 mg/dL (8.4-10.2); Magnesium 2.1 mg/dL (1.6-2.3); Potassium 4.4 mmol/L (3.5-5.1); Total Bilirubin 0.4 mg/dL (0.2-1.3); Total Protein 7.8 g/dL (6.3-8.2)
[2018-06-05 18:19] LABS: Partial Thromboplastin Time 25.6 sec (22.0-30.0)
[2018-06-05 18:22] LABS: Creatine Kinase 81 U/L (30-135)
[2018-06-05 18:33] LABS: D-Dimer 1.6 mg/L FEU (<0.60)
[2018-06-05 18:35] LABS: Creatine Kinase MB 0.3 ng/mL (0.0-2.4); Troponin I <0.012 ng/mL (0.000-0.034)
[2018-06-05] MEDS ORDERED: MORPHINE SULFATE 2 MG/ML SYRINGE IVP STA (19:15)
--- NOTE | 2018-06-05 19:19 | ED ---
General Adult HPI - General Chief complaint: Chest Pain Stated complaint: Chest Pain ( HX) Time Seen by Provider: 06/05/18 19:09 Source: patient, RN notes reviewed, old records reviewed Mode of arrival: wheelchair Limitations: no limitations - History of Present Illness Initial comments: 42-year-old female presenting for evaluation of chest pain. Patient states she' s had ongoing chest pain for the past 3 days. She reports that she slipped and fell onto her right side and developed some right shoulder pain. She was evaluated for this in the emergency department. She states that over the past 3 days this pain has significantly worsened. She is also had pain in the center of her chest and in her back along her spine. She's had generalized fatigue and weakness. She states that her entire right arm hurts after the injury. She states they movement of her right arm causes significant pain. She does have some mild neck pain associated with this as well. There is no reported head or neck injury with the fall. She's had some mild nausea. No abdominal pain. No lower extremity pain. She does have history of aortic aneurysm. She follows with cardiology. - Related Data Previous Rx's Medication Instructions Recorded Ibuprofen [Motrin] 600 mg PO Q8HR PRN #20 tab 06/02/18 traMADol HCL [Ultram] 50 mg PO Q4HR PRN 3 Days #18 tab 06/02/18 Allergies Allergy/AdvReac Type Severity Reaction Status Date / Time Penicillins Allergy Unknown YEAST Verified 06/05/18 19:18 INFECTIONS ciprofloxacin [From Cipro] Allergy Anaphylaxis Verified 06/05/18 19:18 metronidazole [From Flagyl] Allergy Anaphylaxis Verified 06/05/18 19:18 naproxen Allergy Anaphylaxis Verified 06/05/18 19:18 meloxicam [From Mobic] AdvReac Unknown Slurred Verified 06/05/18 19:18 speech, muscle jerking, chest pain diphenhydramine HCl AdvReac Rapid Verified 06/05/18 19:18 [From Benadryl] Heart Rate ibuprofen [From Motrin] AdvReac stomach Verified 06/05/18 19:18 ulcers ketorolac tromethamine AdvReac Hallucinati Verified 06/05/18 19:18 [From Toradol] ons Review of Systems ROS Statement: Those systems with pertinent positive or pertinent negative responses have been documented in the HPI. ROS Other: All systems not noted in ROS Statement are negative. Past Medical History Past Medical History: Chest Pain / Angina, Fibromyalgia, GERD/Reflux, Neurologic Disorder Additional Past Medical History / Comment(s): Migraines- occiptal neuralgia, Aortic aneurysm, endometreosis, anxiety/depression. "heart skips a beat" states hx of stomach ulcers. pt stated her norm is loose/ diarrhea stools sometimes 3 or more a day. History of Any Multi-Drug Resistant Organisms: None Reported Past Surgical History: Appendectomy, Section, Cholecystectomy, Heart Catheterization, Hysterectomy, Orthopedic Surgery Additional Past Surgical History / Comment(s): lt ankle reconstructive sx,rt knee surgery.egd/colonoscopy w/bx-pt stated did'nt gets results. Past Anesthesia/Blood Transfusion Reactions: Motion Sickness, Postoperative Nausea & Vomiting (PONV) Past Psychological History: Anxiety, Depression Smoking Status: Current every day smoker Past Alcohol Use History: Occasional Past Drug Use History: None Reported - Past Family History Mother Family Medical History: Thyroid Disorder Additional Family Medical History / Comment(s): hashimotos' Father Family Medical History: No Reported History Additional Family Medical History / Comment(s): "healthy" General Exam Limitations: no limitations General appearance: alert, in no apparent distress Head exam: Present: atraumatic, normocephalic Eye exam: Present: normal appearance, PERRL, EOMI ENT exam: Present: normal exam Neck exam: Present: normal inspection, full ROM. Absent: tenderness, meningismus Respiratory exam: Present: normal lung sounds bilaterally, chest wall tenderness. Absent: respiratory distress, wheezes Cardiovascular Exam: Present: regular rate, normal rhythm GI/Abdominal exam: Present: soft. Absent: distended, tenderness, guarding, rebound Extremities exam: Present: normal inspection, other (Pulse exam, bilateral radial, bilateral DP 2+. Range of motion is limited in the right shoulder secondary to pain. She does have pain in the anterior chest wall muscles on the right.) Neurological exam: Present: alert, oriented X3, CN II-XII intact. Absent: motor sensory deficit Psychiatric exam: Present: normal affect, normal mood Skin exam: Present: warm, dry, intact. Absent: cyanosis, diaphoretic Course Vital Signs 06/05/18 06/05/18 06/05/18 17:42 19:33 19:35 Temperature 98.0 F Pulse Rate 64 57 L Pulse Rate [ 57 L [employer]er ] Respiratory 18 18 Rate Blood Pressure 129/93 144/95 O2 Sat by Pulse 100 100 Oximetry 06/05/18 06/05/18 20:30 21:06 Temperature Pulse Rate 63 67 Pulse Rate [ [employer]er ] Respiratory 18 21 Rate Blood Pressure 151/95 153/96 O2 Sat by Pulse 100 100 Oximetry EKG Findings - EKG Comments: EKG Findings:: EKG obtained at 1604, normal sinus rhythm rate of 63, UT interval 142, QRS duration 76, QTC 47, no ST segment elevation or depression, upright T waves. EKG obtained at 2102, normal sinus rhythm T-wave inversion in V2, no ST segment elevation or depression, rate of 75, UT interval 132, castration 76, QTC 433 Medical Decision Making - Medical Decision Making 42-year-old female presenting with chest pain. Patient initially thought her pain was secondary to fall. However she developed central chest pain. She does have history of recurrent chest pain in the past. She has been followed by cardiology. She has history of a thoracic aortic aneurysm. Pain is sharp and stabbing in nature. Vitals were stable throughout her stay in the emergency department. EKG is negative for ST segment elevation, there is no significant signs of ischemia. Chest x-ray negative for any acute cardio pulmonary disease. CBC is unremarkable, troponin is negative. CT of the cervical spine shows no fracture subluxation. CT angiography of the chest is negative for dissection, negative for PE, there is a 4 cm thoracic aortic aneurysm. Patient's symptoms do not appear to be cardiac in nature however she is having significant pain on reevaluation. She's given nitroglycerin as well as left pain medications. Her pain persists. She will be admitted for serial cardiac enzymes at the chance this is cardiac in nature. Cardiology will be consulted. Patient may benefit from GI consultation, there is some concern for esophageal spasm. - Lab Data Result diagrams: 06/05/18 17:55 06/05/18 17:55 Lab Results 06/05/18 06/05/18 06/05/18 Range/Units 17:55 17:55 17:55 WBC 6.9 (3.8-10.6) k/uL RBC 4.93 (3.80-5.40) m/uL Hgb 14.7 (11.4-16.0) gm/dL Hct 43.5 (34.0-46.0) % MCV 88.2 (80.0-100.0) fL MCH 29.9 (25.0-35.0) pg MCHC 33.9 (31.0-37.0) g/dL RDW 12.7 (11.5-15.5) % Plt Count 317 (150-450) k/uL Neutrophils % 50 % Lymphocytes % 42 % Monocytes % 4 % Eosinophils % 2 % Basophils % 1 % Neutrophils # 3.5 (1.3-7.7) k/uL Lymphocytes # 2.9 (1.0-4.8) k/uL Monocytes # 0.2 (0-1.0) k/uL Eosinophils # 0.1 (0-0.7) k/uL Basophils # 0.1 (0-0.2) k/uL PT (9.0-12.0) sec INR (<1.2) APTT (22.0-30.0) sec D-Dimer (<0.60) mg/L FEU Sodium 141 (137-145) mmol/L Potassium 4.4 (3.5-5.1) mmol/L Chloride 105 (98-107) mmol/L Carbon Dioxide 24 (22-30) mmol/L Anion Gap 12 mmol/L BUN 14 (7-17) mg/dL Creatinine 1.00 (0.52-1.04) mg/dL Est GFR (CKD-EPI)AfAm 81 (>60 ml/min/1.73 sqM) Est GFR (CKD-EPI)NonAf 71 (>60 ml/min/1.73 sqM) Glucose 91 (74-99) mg/dL Calcium 10.1 (8.4-10.2) mg/dL Magnesium 2.1 (1.6-2.3) mg/dL Total Bilirubin 0.4 (0.2-1.3) mg/dL AST 33 (14-36) U/L ALT 61 H (9-52) U/L Alkaline Phosphatase 69 (38-126) U/L Total Creatine Kinase 81 (30-135) U/L CK-MB (CK-2) 0.3 (0.0-2.4) ng/mL CK-MB (CK-2) Rel Index 0.4 Troponin I <0.012 (0.000-0.034) ng/mL Total Protein 7.8 (6.3-8.2) g/dL Albumin 4.6 (3.5-5.0) g/dL 06/05/18 Range/Units 17:55 WBC (3.8-10.6) k/uL RBC (3.80-5.40) m/uL Hgb (11.4-16.0) gm/dL Hct (34.0-46.0) % MCV (80.0-100.0) fL MCH (25.0-35.0) pg MCHC (31.0-37.0) g/dL RDW (11.5-15.5) % Plt Count (150-450) k/uL Neutrophils % % Lymphocytes % % Monocytes % % Eosinophils % % Basophils % % Neutrophils # (1.3-7.7) k/uL Lymphocytes # (1.0-4.8) k/uL Monocytes # (0-1.0) k/uL Eosinophils # (0-0.7) k/uL Basophils # (0-0.2) k/uL PT 10.0 (9.0-12.0) sec INR 1.0 (<1.2) APTT 25.6 (22.0-30.0) sec D-Dimer 1.60 H (<0.60) mg/L FEU Sodium (137-145) mmol/L Potassium (3.5-5.1) mmol/L Chloride (98-107) mmol/L Carbon Dioxide (22-30) mmol/L Anion Gap mmol/L BUN (7-17) mg/dL Creatinine (0.52-1.04) mg/dL Est GFR (CKD-EPI)AfAm (>60 ml/min/1.73 sqM) Est GFR (CKD-EPI)NonAf (>60 ml/min/1.73 sqM) Glucose (74-99) mg/dL Calcium (8.4-10.2) mg/dL Magnesium (1.6-2.3) mg/dL Total Bilirubin (0.2-1.3) mg/dL AST (14-36) U/L ALT (9-52) U/L Alkaline Phosphatase (38-126) U/L Total Creatine Kinase (30-135) U/L CK-MB (CK-2) (0.0-2.4) ng/mL CK-MB (CK-2) Rel Index Troponin I (0.000-0.034) ng/mL Total Protein (6.3-8.2) g/dL Albumin (3.5-5.0) g/dL Disposition Clinical Impression: Chest pain, Right shoulder strain, Thoracic aortic aneurysm without rupture Disposition: ADMITTED IP TO THIS [facility] Condition: Stable Is patient prescribed a controlled substance at d/c from ED?: No Referrals: Susan Cruz MD [Primary Care Provider] - 1-2 days Decision to Admit Reason: Admit from EC Decision Date: 06/05/18 Decision Time: 20:05
[2018-06-05] MEDS ORDERED: ONDANSETRON 4 MG/2 ML VIAL IVP STA (19:41)
--- NOTE | 2018-06-05 20:29 | CT ---
EXAMINATION TYPE: CT angio chest DATE OF EXAM: 06/05/2018 8:16 PM COMPARISON: 06/25/2017 HISTORY: Thoracic aortic aneurysm CT DLP: 794.5 mGycm Automated exposure control for dose reduction was used. CONTRAST: CTA scan of the thorax is performed with IV Contrast, patient injected with 100 mL of Isovue 370, pul monary embolism protocol. There are 3-D post processed images.. FINDINGS: The lungs are clear of infiltrate. There is no pleural effusion. There is no evidence of a pulmonary mass. Heart size is normal. There is no pericardial effusion. There is mild aneurysm of ascending aor ta measures 4 cm. There is no evidence of dissection. There are no filling defects in the pulmonary a rteries. There are no hilar masses. There is no mediastinal adenopathy. The bony thorax is intact. IMPRESSION: NO EVIDENCE OF PULMONARY EMBOLISM. MILD ANEURYSM OF ASCENDING AORTA WITHOUT SIGNIFICANT CHANGE COMPAR ED TO LAST EXAM.
--- NOTE | 2018-06-05 20:31 | CT ---
EXAMINATION TYPE: CT cervical spine wo con DATE OF EXAM: 06/05/2018 COMPARISON: None HISTORY: Neck and right arm pain CT DLP: 429.3 mGycm Automated exposure control for dose reduction was used. TECHNIQUE: CT scan of the cervical spine is obtained without contrast, axial images are obtained, sa gittal and coronal reformatted images are also reviewed. FINDINGS: There is slight straightening of the cervical vertebra. Disc spaces are normal. Posterior e lements are intact. Facet joints appear normal. There is no evidence of a fracture. The skull base ap pears intact. Prevertebral soft tissues appear normal. IMPRESSION: Negative CT scan of the cervical spine. No fracture.
[2018-06-05] MEDS ORDERED: HYDROmorphone 0.5 MG/0.5 ML SYRINGE IVP STA (20:35)
[2018-06-05] MEDS ORDERED: ACETAMINOPHEN IV (For NPO) 1,000 MG in EMPTY BAG 1 BAG IVPB ONE (21:02)
[2018-06-05] MEDS ORDERED: LORazepam 2 MG/ML INJ IV STA (21:02)
[2018-06-05] MEDS ORDERED: PANTOPRAZOLE 40 MG/10 ML VIAL IVP STA (21:02)
[2018-06-05] MEDS ORDERED: NITROGLYCERIN SL TABS 0.4 MG TAB SUBLINGUAL STA (21:04)
[2018-06-05] MEDS ORDERED: LORazepam 2 MG/ML INJ IV PRN (22:23)
[2018-06-05] MEDS ORDERED: NALOXONE 0.4 MG/ML 1 ML VIAL IV PRN (22:23)
[2018-06-05 23:16] VITALS: BMI 29.7
[2018-06-05] MEDS: MORPHINE SULFATE 2 MG/ML SYRINGE IV PRN (23:20)
[2018-06-05] MEDS: ONDANSETRON 4 MG/2 ML VIAL IVP PRN (23:20)
[2018-06-06 00:42] LABS: Creatine Kinase 66 U/L (30-135)
[2018-06-06 00:55] LABS: Creatine Kinase MB 0.3 ng/mL (0.0-2.4); Troponin I <0.012 ng/mL (0.000-0.034)
[2018-06-06] MEDS: MORPHINE SULFATE 2 MG/ML SYRINGE IV PRN ×2 (05:12→20:49)
[2018-06-06] MEDS: ONDANSETRON 4 MG/2 ML VIAL IVP PRN ×3 (05:21→20:48)
[2018-06-06 08:14] LABS: Creatine Kinase 64 U/L (30-135)
[2018-06-06 08:27] LABS: Creatine Kinase MB 0.3 ng/mL (0.0-2.4); Troponin I <0.012 ng/mL (0.000-0.034)
--- NOTE | 2018-06-06 09:34 | P.CRDCN ---
History of Present Illness History of present illness: Musculoskeletal chest discomfort lasting for days following a fall and injury to the shoulder. Normal cardiac enzymes 3. Normal ECG 2 Known coronary artery disease involving the small diagonal vessel. Patient does not take statins. Does not have any side effects from them. I explained the reason why she needs statins and explained that statins retard progression of coronary atherosclerosis. This is important medication for her and she should consider taking it. She will follow with Dr. Delatorre. No further cardiac workup indicated at this point. We'll sign off. Please see full dictation by nurse practitioner Past Medical History Past Medical History: Chest Pain / Angina, Fibromyalgia, GERD/Reflux, Neurologic Disorder Additional Past Medical History / Comment(s): Migraines- occiptal neuralgia, Aortic aneurysm, endometreosis, anxiety/depression. "heart skips a beat" states hx of stomach ulcers. pt stated her norm is loose/ diarrhea stools sometimes 3 or more a day. History of Any Multi-Drug Resistant Organisms: None Reported Past Surgical History: Appendectomy, Section, Cholecystectomy, Heart Catheterization, Hysterectomy, Orthopedic Surgery Additional Past Surgical History / Comment(s): lt ankle reconstructive sx,rt knee surgery.egd/colonoscopy w/bx-pt stated did'nt gets results. Past Anesthesia/Blood Transfusion Reactions: Motion Sickness, Postoperative Nausea & Vomiting (PONV) Smoking Status: Former smoker - Past Family History Mother Family Medical History: Thyroid Disorder Additional Family Medical History / Comment(s): hashimotos' Father Family Medical History: No Reported History Additional Family Medical History / Comment(s): "healthy" Medications and Allergies Home Medications Medication Instructions Recorded Confirmed Type traMADol HCL [Ultram] 50 mg PO Q4HR PRN 3 Days #18 tab 06/02/18 06/05/18 Rx Acetaminophen Tab [Tylenol Tab] 500 mg PO Q4H PRN 06/05/18 06/05/18 History Allergies Allergy/AdvReac Type Severity Reaction Status Date / Time Penicillins Allergy Unknown YEAST Verified 06/05/18 23:07 INFECTIONS ciprofloxacin [From Cipro] Allergy Anaphylaxis Verified 06/05/18 23:07 metronidazole [From Flagyl] Allergy Anaphylaxis Verified 06/05/18 23:07 naproxen Allergy Anaphylaxis Verified 06/05/18 23:07 meloxicam [From Mobic] AdvReac Unknown Slurred Verified 06/05/18 23:07 speech, muscle jerking, chest pain diphenhydramine HCl AdvReac Rapid Verified 06/05/18 23:07 [From Benadryl] Heart Rate ibuprofen [From Motrin] AdvReac stomach Verified 06/05/18 23:07 ulcers ketorolac tromethamine AdvReac Hallucinati Verified 06/05/18 23:07 [From Toradol] ons Physical Exam Vitals: Vital Signs Temp Pulse Pulse Pulse Resp BP BP 06/06/18 07:28 65 18 112/73 06/06/18 03:29 16 06/06/18 03:26 97.7 F 52 L 16 118/80 06/05/18 23:33 16 06/05/18 23:30 97.4 F L 53 L 16 137/89 06/05/18 22:41 97.1 F L 54 L 17 116/80 06/05/18 21:06 67 21 153/96 06/05/18 20:30 63 18 151/95 06/05/18 19:35 57 L 18 144/95 06/05/18 19:33 57 L 06/05/18 17:42 98.0 F 64 18 129/93 Pulse Ox 06/06/18 07:28 98 06/06/18 03:29 06/06/18 03:26 99 06/05/18 23:33 06/05/18 23:30 100 06/05/18 22:41 100 06/05/18 21:06 100 06/05/18 20:30 100 06/05/18 19:35 100 06/05/18 19:33 06/05/18 17:42 100 Intake and Output 06/05/18 06/06/18 06/06/18 22:59 06:59 14:59 Other: # Voids 1 Weight 91.127 kg 91.2 kg Results 06/05/18 17:55 06/05/18 17:55 Cardiac Enzymes 06/05/18 06/05/18 06/05/18 Range/Units 17:55 17:55 23:56 AST 33 (14-36) U/L CK-MB (CK-2) 0.3 0.3 (0.0-2.4) ng/mL Troponin I <0.012 <0.012 (0.000-0.034) ng/mL 06/06/18 Range/Units 06:18 AST (14-36) U/L CK-MB (CK-2) 0.3 (0.0-2.4) ng/mL Troponin I <0.012 (0.000-0.034) ng/mL Coagulation 06/05/18 Range/Units 17:55 PT 10.0 (9.0-12.0) sec APTT 25.6 (22.0-30.0) sec CBC 06/05/18 Range/Units 17:55 WBC 6.9 (3.8-10.6) k/uL RBC 4.93 (3.80-5.40) m/uL Hgb 14.7 (11.4-16.0) gm/dL Hct 43.5 (34.0-46.0) % Plt Count 317 (150-450) k/uL Comprehensive Metabolic Panel 06/05/18 Range/Units 17:55 Sodium 141 (137-145) mmol/L Potassium 4.4 (3.5-5.1) mmol/L Chloride 105 (98-107) mmol/L Carbon Dioxide 24 (22-30) mmol/L BUN 14 (7-17) mg/dL Creatinine 1.00 (0.52-1.04) mg/dL Glucose 91 (74-99) mg/dL Calcium 10.1 (8.4-10.2) mg/dL AST 33 (14-36) U/L ALT 61 H (9-52) U/L Alkaline Phosphatase 69 (38-126) U/L Total Protein 7.8 (6.3-8.2) g/dL Albumin 4.6 (3.5-5.0) g/dL Current Medications Generic Name Dose Route Start Last Admin Trade Name Freq PRN Reason Stop Dose Admin Acetaminophen 650 mg 06/05/18 22:23 Tylenol Tab PO Q6HR PRN Mild Pain or Fever > 100.5 Aspirin 81 mg 06/06/18 09:00 Aspirin PO DAILY RIGO Lorazepam 0.5 mg 06/05/18 22:23 Ativan IV Q6HR PRN Anxiety Morphine Sulfate 4 mg 06/05/18 22:23 06/06/18 05:12 Morphine Sulfate (Inj) IV 4 mg Q4HR PRN Administration Severe Pain Naloxone HCl 0.2 mg 06/05/18 22:23 Narcan IV Q2M PRN Opioid Reversal Ondansetron HCl 4 mg 06/05/18 22:23 06/06/18 05:21 Zofran IVP 4 mg Q8HR PRN Administration Nausea And Vomiting Pantoprazole Sodium 40 mg 06/06/18 09:00 Protonix IV DAILY RIGO Intake and Output 06/05/18 06/06/18 06/06/18 22:59 06:59 14:59 Other: # Voids 1 Weight 91.127 kg 91.2 kg 06/05/18 17:55 06/05/18 17:55
[2018-06-06] MEDS: PANTOPRAZOLE 40 MG/10 ML VIAL IV SCH (10:38)
[2018-06-06] MEDS: ASPIRIN 81 MG PO SCH (10:38)
[2018-06-06] MEDS: ACETAMINOPHEN TAB 325 MG TAB PO PRN (10:41)
--- NOTE | 2018-06-06 11:19 | P.CRDCN ---
History of Present Illness History of present illness: This is a pleasant 42-year-old female past medical history significant for coronary artery disease most recent catheterization May 2017 revealed an 80-90% ostial lesion of the second diagonal branch. Medical therapy was recommended at that time. She presented to the hospital 5 days after slip and fall on a pool deck. When she fell she landed on the right side of her body. She has been suffering from right shoulder discomfort ever since. However yesterday the pain seems to radiate down into the right anterior chest , right upper back and right neck. She became concerned because of her cardiac history and came in for evaluation. Pain in the right anterior chest and right upper back is reproducible on palpation as well as with movement of the right arm. She complains of associated hot flashes, nausea and shortness of breath. She denies palpitations, vomiting or dizziness. After cardiac catheterization last year she was recommended to take statin, Imdur and tobacco cessation. She did quit smoking in March 2018. She was unable to tolerate Imdur secondary to headaches and she declines to take a statin medication for personal reasons. EKG reveals sinus mechanism with no acute ST or T-wave abnormalities. Chest x-ray negative for an acute cardiopulmonary process. CT angios of the chest negative for pulmonary embolism with stable 4 cm abdominal aortic aneurysm. Laboratory data reviewed, hemoglobin 14.7, platelets 317, d-dimer 1.6, sodium 141, potassium 4.4, magnesium 2.1, creatinine 1.0, cardiac enzymes negative 3. Current daily medications include tramadol and Tylenol as needed. Most recent echocardiogram performed May 2017 reveals preserved left ventricular systolic function with ejection fraction 55-60%. Review of Systems At the time my exam: CONSTITUTIONAL: Denies fever. Denies chills. EYES: Denies blurred vision. Denies vision changes. Denies eye pain. EARS, NOSE, MOUTH & THROAT: Denies headache. Denies sore throat. Denies ear pain. CARDIOVASCULAR: Denies chest pain. Denies shortness of breath. Denies orthopnea. Denies PND. Denies palpitations. RESPIRATORY: Denies cough. GASTROINTESTINAL: Denies abdominal pain. Denies diarrhea. Denies constipation. Denies nausea. Denies vomiting. MUSCULOSKELETAL: Complains of pain in the right shoulder. INTEGUMENTARY: Denies pruitis. Denies rash. NEUROLOGIC: Denies numbness. Denies tingling. Denies weakness. PSYCHIATRIC: Denies anxiety. Denies depression. ENDOCRINE: Denies fatigue. Denies weight change. Denies polydipsia. Denies polyurina. GENITOURINARY: Denies burning, hematuria or urgency with micturation. HEMATOLOGIC: Denies history of anemia. Denies bleeding. Past Medical History Past Medical History: Chest Pain / Angina, Fibromyalgia, GERD/Reflux, Neurologic Disorder Additional Past Medical History / Comment(s): Migraines- occiptal neuralgia, Aortic aneurysm, endometreosis, anxiety/depression. "heart skips a beat" states hx of stomach ulcers. pt stated her norm is loose/ diarrhea stools sometimes 3 or more a day. History of Any Multi-Drug Resistant Organisms: None Reported Past Surgical History: Appendectomy, Section, Cholecystectomy, Heart Catheterization, Hysterectomy, Orthopedic Surgery Additional Past Surgical History / Comment(s): lt ankle reconstructive sx,rt knee surgery.egd/colonoscopy w/bx-pt stated did'nt gets results. Past Anesthesia/Blood Transfusion Reactions: Motion Sickness, Postoperative Nausea & Vomiting (PONV) Smoking Status: Former smoker - Past Family History Mother Family Medical History: Thyroid Disorder Additional Family Medical History / Comment(s): hashimotos' Father Family Medical History: No Reported History Additional Family Medical History / Comment(s): "healthy" Medications and Allergies Home Medications Medication Instructions Recorded Confirmed Type traMADol HCL [Ultram] 50 mg PO Q4HR PRN 3 Days #18 tab 06/02/18 06/05/18 Rx Acetaminophen Tab [Tylenol Tab] 500 mg PO Q4H PRN 06/05/18 06/05/18 History Allergies Allergy/AdvReac Type Severity Reaction Status Date / Time Penicillins Allergy Unknown YEAST Verified 06/05/18 23:07 INFECTIONS ciprofloxacin [From Cipro] Allergy Anaphylaxis Verified 06/05/18 23:07 metronidazole [From Flagyl] Allergy Anaphylaxis Verified 06/05/18 23:07 naproxen Allergy Anaphylaxis Verified 06/05/18 23:07 meloxicam [From Mobic] AdvReac Unknown Slurred Verified 06/05/18 23:07 speech, muscle jerking, chest pain diphenhydramine HCl AdvReac Rapid Verified 06/05/18 23:07 [From Benadryl] Heart Rate ibuprofen [From Motrin] AdvReac stomach Verified 06/05/18 23:07 ulcers ketorolac tromethamine AdvReac Hallucinati Verified 06/05/18 23:07 [From Toradol] ons Physical Exam Vitals: Vital Signs Temp Pulse Pulse Pulse Resp BP BP 06/06/18 07:28 65 18 112/73 06/06/18 03:29 16 06/06/18 03:26 97.7 F 52 L 16 118/80 06/05/18 23:33 16 06/05/18 23:30 97.4 F L 53 L 16 137/89 06/05/18 22:41 97.1 F L 54 L 17 116/80 06/05/18 21:06 67 21 153/96 06/05/18 20:30 63 18 151/95 06/05/18 19:35 57 L 18 144/95 06/05/18 19:33 57 L 06/05/18 17:42 98.0 F 64 18 129/93 Pulse Ox 06/06/18 07:28 98 06/06/18 03:29 06/06/18 03:26 99 06/05/18 23:33 06/05/18 23:30 100 06/05/18 22:41 100 06/05/18 21:06 100 06/05/18 20:30 100 06/05/18 19:35 100 06/05/18 19:33 06/05/18 17:42 100 Intake and Output 06/05/18 06/06/18 06/06/18 22:59 06:59 14:59 Other: # Voids 1 Weight 91.127 kg 91.2 kg Blood pressure 112/73 heart rate 65 afebrile maintaining oxygen saturation on room air GENERAL: This is a 42-year-old female in no apparent distress at the time of my examination. HEENT: Head is atraumatic, normocephalic. Pupils are equal, round. Sclerae anicteric. Conjunctivae are clear. Mucous membranes of the mouth are moist. Neck is supple. There is no jugular venous distention. No carotid bruit is heard. LUNGS: Clear to auscultation no wheezes, rales or rhonchi. No chest wall tenderness is noted on palpation or with deep breathing. HEART: Regular rate and rhythm without murmurs, rubs or gallops. S1 and S2 heard. ABDOMEN: Soft, nontender. Bowel sounds are heard. No organomegaly noted. EXTREMITIES: No evidence of peripheral edema and no calf tenderness noted. VASCULAR: Radial and dorsalis pedis pulses palpated, no evidence of clubbing. NEUROLOGIC: Patient is awake, alert and oriented x3. Results 06/05/18 17:55 06/05/18 17:55 Cardiac Enzymes 06/05/18 06/05/18 06/05/18 Range/Units 17:55 17:55 23:56 AST 33 (14-36) U/L CK-MB (CK-2) 0.3 0.3 (0.0-2.4) ng/mL Troponin I <0.012 <0.012 (0.000-0.034) ng/mL Coagulation 06/05/18 Range/Units 17:55 PT 10.0 (9.0-12.0) sec APTT 25.6 (22.0-30.0) sec CBC 06/05/18 Range/Units 17:55 WBC 6.9 (3.8-10.6) k/uL RBC 4.93 (3.80-5.40) m/uL Hgb 14.7 (11.4-16.0) gm/dL Hct 43.5 (34.0-46.0) % Plt Count 317 (150-450) k/uL Comprehensive Metabolic Panel 06/05/18 Range/Units 17:55 Sodium 141 (137-145) mmol/L Potassium 4.4 (3.5-5.1) mmol/L Chloride 105 (98-107) mmol/L Carbon Dioxide 24 (22-30) mmol/L BUN 14 (7-17) mg/dL Creatinine 1.00 (0.52-1.04) mg/dL Glucose 91 (74-99) mg/dL Calcium 10.1 (8.4-10.2) mg/dL AST 33 (14-36) U/L ALT 61 H (9-52) U/L Alkaline Phosphatase 69 (38-126) U/L Total Protein 7.8 (6.3-8.2) g/dL Albumin 4.6 (3.5-5.0) g/dL Current Medications Generic Name Dose Route Start Last Admin Trade Name Freq PRN Reason Stop Dose Admin Acetaminophen 650 mg 06/05/18 22:23 Tylenol Tab PO Q6HR PRN Mild Pain or Fever > 100.5 Lorazepam 0.5 mg 06/05/18 22:23 Ativan IV Q6HR PRN Anxiety Morphine Sulfate 4 mg 06/05/18 22:23 06/06/18 05:12 Morphine Sulfate (Inj) IV 4 mg Q4HR PRN Administration Severe Pain Naloxone HCl 0.2 mg 06/05/18 22:23 Narcan IV Q2M PRN Opioid Reversal Ondansetron HCl 4 mg 06/05/18 22:23 06/06/18 05:21 Zofran IVP 4 mg Q8HR PRN Administration Nausea And Vomiting Pantoprazole Sodium 40 mg 06/06/18 09:00 Protonix IV DAILY RIGO Intake and Output 06/05/18 06/06/18 06/06/18 22:59 06:59 14:59 Other: # Voids 1 Weight 91.127 kg 91.2 kg 06/05/18 17:55 06/05/18 17:55 Assessment and Plan Assessment: ASSESSMENT Musculoskeletal pain to right shoulder, upper back and right chest wall secondary to fall History of coronary artery disease, recommended to be on aspirin, imdur and statin therapy. Pt is intolerance to imdur and non-compliant with aspirin and stain. former tobacco dependence, quit 03/2018 History of anxiety and depression Fibromyalgia Marijuana use Non-compliance PLAN Obtain 2D echocardiogram and doppler study to assess cardiac structure and function. Recommend she take aspirin 81 mg daily and again discussed the importance of statin therapy. She declines. Ongoing smoking cessation and marijuana cessation recommended. Ongoing medical management of musculoskeltal shoulder pain. Follow-up with Dr. Carrillo in 2-3 weeks. Thank you kindly for this consultation. Nurse Practitioner note has been reviewed, I agree with a documented findings and plan of care. Patient was seen and examined.
--- NOTE | 2018-06-06 12:26 | P.HPIM ---
History of Present Illness This is a pleasant 42 years old female with past medical history of chest pain/ angina, fibromyalgia, GERD, occipital neuralgia, aortic aneurysm, endometriosis , anxiety and depression. Status post hysterectomy and orthopedic surgery with reconstructive for the right knee. Patient presents basically because of worsening right shoulder and shoulder blade pain. Patient states like 3-4 days ago she slipped and fell in her pole area without losing consciousness. She fell on her right side. At that time the pain was minimal however at nighttime she started experiencing pain in her right shoulder associated with restricted movement. Patient came to emergency room at that time which was negative right shoulder x-ray, however her pain progressed and the right shoulder and get worse from 4-5/10, to 8-9/10 on admission. Currently states is around 4-5/10. Her right shoulder pain was radiating to her back and chest and that's why she admitted for chest pain which is minimum now. Patient states her pain missed basically also around the right shoulder blade In the emergency room she got CTPA which shows clear lungs with no evidence of pulmonary mass or pulmonary embolism. There is mild aneurysm of the ascending aorta measures 4 cm with no evidence of dissection. Chest x-ray showing normal. Negative computed tomography scan of the cervical spine with no fracture. Vitas is stable. Serial troponin less than 0.0 12. BMP and CBC were unremarkable. High d-dimer at 1.6. However patient had negative CTPA for PE. Patient denies leg pain or complaints or induration. Patient also has negative shoulder x-ray from 06/02/2018 Review of Systems CONSTITUTIONAL: No fever, no malaise, no fatigue. HEENT: No recent visual problems or hearing problems. Denied any sore throat. CARDIOVASCULAR: No orthopnea, PND, no palpitations, no syncope. PULMONARY: No shortness of breath, no cough, no hemoptysis. GASTROINTESTINAL: No diarrhea, no nausea, no vomiting, no abdominal pain. Normoactive bowel sounds. NEUROLOGICAL: No headaches, no weakness, no numbness. HEMATOLOGICAL: Denies any bleeding or petechiae. GENITOURINARY: Denies any burning micturition, frequency, or urgency. MUSCULOSKELETAL/RHEUMATOLOGICAL: Denies any joint pain, swelling, or any muscle pain. ENDOCRINE: Denies any polyuria or polydipsia. Past Medical History Past Medical History: Chest Pain / Angina, Fibromyalgia, GERD/Reflux, Neurologic Disorder Additional Past Medical History / Comment(s): Migraines- occiptal neuralgia, Aortic aneurysm, endometreosis, anxiety/depression. "heart skips a beat" states hx of stomach ulcers. pt stated her norm is loose/ diarrhea stools sometimes 3 or more a day. History of Any Multi-Drug Resistant Organisms: None Reported Past Surgical History: Appendectomy, Section, Cholecystectomy, Heart Catheterization, Hysterectomy, Orthopedic Surgery Additional Past Surgical History / Comment(s): lt ankle reconstructive sx,rt knee surgery.egd/colonoscopy w/bx-pt stated did'nt gets results. Past Anesthesia/Blood Transfusion Reactions: Motion Sickness, Postoperative Nausea & Vomiting (PONV) Smoking Status: Former smoker - Past Family History Mother Family Medical History: Thyroid Disorder Additional Family Medical History / Comment(s): hashimotos' Father Family Medical History: No Reported History Additional Family Medical History / Comment(s): "healthy" Medications and Allergies Home Medications Medication Instructions Recorded Confirmed Type traMADol HCL [Ultram] 50 mg PO Q4HR PRN 3 Days #18 tab 06/02/18 06/05/18 Rx Acetaminophen Tab [Tylenol Tab] 500 mg PO Q4H PRN 06/05/18 06/05/18 History Allergies Allergy/AdvReac Type Severity Reaction Status Date / Time Penicillins Allergy Unknown YEAST Verified 06/05/18 23:07 INFECTIONS ciprofloxacin [From Cipro] Allergy Anaphylaxis Verified 06/05/18 23:07 metronidazole [From Flagyl] Allergy Anaphylaxis Verified 06/05/18 23:07 naproxen Allergy Anaphylaxis Verified 06/05/18 23:07 meloxicam [From Mobic] AdvReac Unknown Slurred Verified 06/05/18 23:07 speech, muscle jerking, chest pain diphenhydramine HCl AdvReac Rapid Verified 06/05/18 23:07 [From Benadryl] Heart Rate ibuprofen [From Motrin] AdvReac stomach Verified 06/05/18 23:07 ulcers ketorolac tromethamine AdvReac Hallucinati Verified 06/05/18 23:07 [From Toradol] ons Physical Exam Vitals: Vital Signs Temp Pulse Pulse Pulse Resp BP BP 06/06/18 08:00 18 06/06/18 07:28 65 18 112/73 06/06/18 03:29 16 06/06/18 03:26 97.7 F 52 L 16 118/80 06/05/18 23:33 16 06/05/18 23:30 97.4 F L 53 L 16 137/89 06/05/18 22:41 97.1 F L 54 L 17 116/80 06/05/18 21:06 67 21 153/96 06/05/18 20:30 63 18 151/95 06/05/18 19:35 57 L 18 144/95 06/05/18 19:33 57 L 06/05/18 17:42 98.0 F 64 18 129/93 Pulse Ox 06/06/18 08:00 06/06/18 07:28 98 06/06/18 03:29 06/06/18 03:26 99 06/05/18 23:33 06/05/18 23:30 100 06/05/18 22:41 100 06/05/18 21:06 100 06/05/18 20:30 100 06/05/18 19:35 100 06/05/18 19:33 06/05/18 17:42 100 Intake and Output 06/05/18 06/06/18 06/06/18 22:59 06:59 14:59 Intake Total 240 Balance 240 Intake: Oral 240 Other: # Voids 1 Weight 91.127 kg 91.2 kg GENERAL: The patient is alert and oriented x3, not in any acute distress. Well developed, well nourished. HEENT: Pupils are round and equally reacting to light. EOMI. No scleral icterus. No conjunctival pallor. Normocephalic, atraumatic. No pharyngeal erythema. No thyromegaly. CARDIOVASCULAR: S1 and S2 present. No murmurs, rubs, or gallops. PULMONARY: Chest is clear to auscultation, no wheezing or crackles. ABDOMEN: Soft, nontender, nondistended, normoactive bowel sounds. No palpable organomegaly. MUSCULOSKELETAL: No joint swelling or deformity. EXTREMITIES: No cyanosis, clubbing, or pedal edema. NEUROLOGICAL: Gross neurological examination did not reveal any focal deficits. SKIN: No rashes. Results CBC & Chem 7: 06/05/18 17:55 06/05/18 17:55 Labs: Abnormal Lab Results - Last 24 Hours (Table) 06/05/18 06/05/18 Range/Units 17:55 17:55 D-Dimer 1.60 H (<0.60) mg/L FEU ALT 61 H (9-52) U/L Thrombosis Risk Factor Assmnt - Choose All That Apply Each Factor Represents 1 point: Age 41-60 years Thrombosis Risk Factor Assessment Total Risk Factor Score: 1 Thrombosis Risk Factor Assessment Level: Low Risk Assessment and Plan Assessment: -Right shoulder pain, progressive. Secondary to fall -Chest pain syndrome, mostly musculoskeletal secondary to above -History of fall, for 5 days ago. Slipped at the pool. No LOC -History of hysterectomy -History of fibromyalgia -History of GERD -Migraine Plan: This is a pleasant 42 years old female who presents because of progressive right shoulder pain. With history of fall 2 days ago. Continue with same treatment. Continue with symptomatic treatment. Patient will need further pain management, both IV and by mouth. Consult cardiology for right shoulder injury. Recorder right shoulder x-ray. Patient has been evaluated by cardiology team and cleared for discharge. GI and DVT prophylaxis. Further recommendation based on the clinical course PT/OT : pending Patient states she follow up with Dr. cavazos as PCP
--- NOTE | 2018-06-06 14:37 | XR ---
Right shoulder HISTORY: Right shoulder pain following fall 3 views of the right shoulder correlated prior exam 06/02/2018 Bone mineralization, joint spaces and alignment are maintained. Right lung apex as visualized is norm al. IMPRESSION: No fracture or dislocation. Consider shoulder MRI for better evaluation.
[2018-06-06] MEDS: FAMOTIDINE 20 MG/2 ML VIAL IV SCH (20:48)
[2018-06-06] MEDS: HEPARIN SODIUM,PORCINE 5,000 UNIT/ML 1 ML VIAL SQ SCH (20:48)
[2018-06-06 22:53] VITALS: RESP 16
[2018-06-07] MEDS: MORPHINE SULFATE 2 MG/ML SYRINGE IV PRN (05:08)
[2018-06-07] MEDS: ONDANSETRON 4 MG/2 ML VIAL IVP PRN (05:08)
[2018-06-07 07:15] VITALS: BP 120/52; PULSE 48; TEMP 98.6
[2018-06-07 07:39] LABS: Calcium 9.6 mg/dL (8.4-10.2); Potassium 4.6 mmol/L (3.5-5.1)
[2018-06-07] MEDS: PANTOPRAZOLE 40 MG/10 ML VIAL IV SCH (08:33)
[2018-06-07] MEDS: FAMOTIDINE 20 MG/2 ML VIAL IV SCH (08:34)
[2018-06-07] MEDS: ASPIRIN 81 MG PO SCH (08:34)
[2018-06-07] MEDS: HEPARIN SODIUM,PORCINE 5,000 UNIT/ML 1 ML VIAL SQ SCH (08:34)
--- NOTE | 2018-06-07 08:41 | P.CNOR ---
History of Present Illness - HPI Consult date: 06/07/18 History of present illness: This is a 42-year-old female who is admitted for chest pain. Orthopedics is consulted due to right shoulder pain. Patient states that her right shoulder pain is improving. Patient states that she fell about a week ago and has difficulty raising the right arm. Patient denies any fever/chills, numbness, weakness or tingling. Review of Systems See HPI. Past Medical History Past Medical History: Chest Pain / Angina, Fibromyalgia, GERD/Reflux, Neurologic Disorder Additional Past Medical History / Comment(s): Migraines- occiptal neuralgia, Aortic aneurysm, endometreosis, anxiety/depression. "heart skips a beat" states hx of stomach ulcers. pt stated her norm is loose/ diarrhea stools sometimes 3 or more a day. History of Any Multi-Drug Resistant Organisms: None Reported Past Surgical History: Appendectomy, Section, Cholecystectomy, Heart Catheterization, Hysterectomy, Orthopedic Surgery Additional Past Surgical History / Comment(s): lt ankle reconstructive sx,rt knee surgery.egd/colonoscopy w/bx-pt stated did'nt gets results. Past Anesthesia/Blood Transfusion Reactions: Motion Sickness, Postoperative Nausea & Vomiting (PONV) Smoking Status: Former smoker - Past Family History Mother Family Medical History: Thyroid Disorder Additional Family Medical History / Comment(s): hashimotos' Father Family Medical History: No Reported History Additional Family Medical History / Comment(s): "healthy" Medications and Allergies Home Medications Medication Instructions Recorded Confirmed Type traMADol HCL [Ultram] 50 mg PO Q4HR PRN 3 Days #18 tab 06/02/18 06/05/18 Rx Acetaminophen Tab [Tylenol Tab] 500 mg PO Q4H PRN 06/05/18 06/05/18 History Allergies Allergy/AdvReac Type Severity Reaction Status Date / Time Penicillins Allergy Unknown YEAST Verified 06/05/18 23:07 INFECTIONS ciprofloxacin [From Cipro] Allergy Anaphylaxis Verified 06/05/18 23:07 metronidazole [From Flagyl] Allergy Anaphylaxis Verified 06/05/18 23:07 naproxen Allergy Anaphylaxis Verified 06/05/18 23:07 meloxicam [From Mobic] AdvReac Unknown Slurred Verified 06/05/18 23:07 speech, muscle jerking, chest pain diphenhydramine HCl AdvReac Rapid Verified 06/05/18 23:07 [From Benadryl] Heart Rate ibuprofen [From Motrin] AdvReac stomach Verified 06/05/18 23:07 ulcers ketorolac tromethamine AdvReac Hallucinati Verified 06/05/18 23:07 [From Toradol] ons Physical Examination On exam patient is alert and oriented 3 and lying comfortably in bed in no acute distress. There is no tenderness to palpation over the right shoulder. There is pain with passive range of motion. No swelling or ecchymosis. Sensation intact. Right upper extremity is warm and well perfused. Neurovascular status and circulatory status are intact. Results X-rays of the right shoulder are negative for any fracture or dislocation. - Labs Labs: Abnormal Lab Results - Last 24 Hours (Table) 06/07/18 Range/Units 06:12 Creatinine 1.19 H (0.52-1.04) mg/dL H & H 06/05/18 Range/Units 17:55 Hgb 14.7 (11.4-16.0) gm/dL Hct 43.5 (34.0-46.0) % Coagulation 06/05/18 Range/Units 17:55 INR 1.0 (<1.2) Result Diagrams: 06/05/18 17:55 06/07/18 06:12 Assessment and Plan (1) Right shoulder pain Current Visit: Yes Status: Acute Code(s): M25.511 - PAIN IN RIGHT SHOULDER SNOMED Code(s): 65088317 (2) Chest pain Current Visit: Yes Status: Acute Code(s): R07.9 - CHEST PAIN, UNSPECIFIED SNOMED Code(s): 10973789 Plan: 1. X-rays are reviewed and are negative for any fracture dislocation. 2. Recommend physical therapy for shoulder pain. 3. Rest and ice the right shoulder. 4. Continue pain control. 5. No surgical intervention planned. Recommend follow-up as an outpatient with her primary care physician.
[2018-06-07] MEDS: ACETAMINOPHEN TAB 325 MG TAB PO PRN (08:43)
--- NOTE | 2018-06-07 14:05 | P.DS ---
Providers Date of admission: 06/05/18 22:24 Attending physician: Sanchez Sadler Consults: 06/05/18 22:24 Consult Physician Routine Consulting Provider: Onur Turner Consult Reason/Comments: CP Do you want consulting provider notified?: Yes Primary care physician: [facility] Course: This is a pleasant 42 years old female with past medical history of chest pain/ angina, fibromyalgia, GERD, occipital neuralgia, aortic aneurysm, endometriosis , anxiety and depression. Status post hysterectomy and orthopedic surgery with reconstructive for the right knee. Patient presents basically because of worsening right shoulder and shoulder blade pain. Patient states like 3-4 days ago she slipped and fell in her pole area without losing consciousness. She fell on her right side. At that time the pain was minimal however at nighttime she started experiencing pain in her right shoulder associated with restricted movement. Patient came to emergency room at that time which was negative right shoulder x-ray, however her pain progressed and the right shoulder and get worse from 4-5/10, to 8-9/10 on admission. Currently states is around 4-5/10. Her right shoulder pain was radiating to her back and chest and that's why she admitted for chest pain which is minimum now. Patient states her pain missed basically also around the right shoulder blade In the emergency room she got CTPA which shows clear lungs with no evidence of pulmonary mass or pulmonary embolism. There is mild aneurysm of the ascending aorta measures 4 cm with no evidence of dissection. Chest x-ray showing normal. Negative computed tomography scan of the cervical spine with no fracture. Vitas is stable. Serial troponin less than 0.0 12. BMP and CBC were unremarkable. High d-dimer at 1.6. However patient had negative CTPA for PE. Patient denies leg pain or complaints or induration. Patient also has negative shoulder x-ray from 06/02/2018. Repeat right shoulder x-ray was negative. Patient has been evaluated by orthopedic team who recommended conservative management and follow-up with PCP as an outpatient. Patient right shoulder pain is improving this morning is coming down a little bit. Patient has been evaluated by physical therapy and recommended discharging patient home. Cardiology evaluated the patient and they cleared her for discharge. Patient's on the day of discharge denies chest pain. No dyspnea. No change in urine or bowel habit. No fever. Patient was cleared for discharge by both orthopedics and cardiology team Management plan was discussed with the patient and she verbalized understanding and acceptance. Patient states she doesn't want any further pain pills stating that she has tramadol pills left at home Patient was found stable and can be discharged home however she needs follow-up as an outpatient. 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 GENERAL: The patient is alert and oriented x3, not in any acute distress. Well developed, well nourished. HEENT: Pupils are round and equally reacting to light. EOMI. No scleral icterus. No conjunctival pallor. Normocephalic, atraumatic. No pharyngeal erythema. No thyromegaly. CARDIOVASCULAR: S1 and S2 present. No murmurs, rubs, or gallops. PULMONARY: Chest is clear to auscultation, no wheezing or crackles. ABDOMEN: Soft, nontender, nondistended, normoactive bowel sounds. No palpable organomegaly. MUSCULOSKELETAL: No joint swelling or deformity. EXTREMITIES: No cyanosis, clubbing, or pedal edema. Right shoulder tenderness. There is pain with passive movement of the shoulder. No swelling or ecchymosis. No weakness is noted in the right upper extremity and sensation intact. Right-sided Pulsations are palpable NEUROLOGICAL: Gross neurological examination did not reveal any focal deficits. SKIN: No rashes. Time spent more than 55 minutes Patient Condition at Discharge: Stable Plan - Discharge Summary New Discharge Prescriptions: New Aspirin 81 mg PO DAILY #30 chew Pantoprazole [Protonix] 40 mg PO AC-BRKFST 30 Days #30 tablet. Continue traMADol HCL [Ultram] 50 mg PO Q4HR PRN 3 Days #18 tab PRN Reason: Pain Acetaminophen Tab [Tylenol] 500 mg PO Q4H PRN PRN Reason: Pain Discharge Medication List traMADol HCL [Ultram] 50 mg PO Q4HR PRN 3 Days #18 tab 06/02/18 [Rx] Acetaminophen Tab [Tylenol] 500 mg PO Q4H PRN 06/05/18 [History] Aspirin 81 mg PO DAILY #30 chew 06/07/18 [Rx] Pantoprazole [Protonix] 40 mg PO AC-BRKFST 30 Days #30 tablet. 06/07/18 [Rx] Follow up Appointment(s)/Referral(s): Susan Cruz MD [Primary Care Provider] - 1-2 days David Carrillo MD [STAFF PHYSICIAN] - 06/19/18 2:45 pm
[2018-06-07] MEDS ORDERED: FAMOTIDINE 20 MG TAB PO SCH (21:00)
[2018-06-08] MEDS ORDERED: PANTOPRAZOLE 40 MG TABLET PO SCH (07:30)
== END 2018-06-07 15:47 | disposition home or self-care (01) ==
LOC: EC 15:50 → 3OBS 22:24
PROVIDERS: ADMIT Hospitalist; ATTEND Hospitalist
DX: M25.511 Pain in right shoulder (principal); R07.89 Other chest pain; M54.6 Pain in thoracic spine; M54.2 Cervicalgia; R11.0 Nausea; R53.1 Weakness; I71.2 Thoracic aortic aneurysm, without rupture; R06.02 Shortness of breath; N95.1 Menopausal and female climacteric states; M79.7 Fibromyalgia; F41.9 Anxiety disorder, unspecified; F32.9 Major depressive disorder, single episode, unspecified; K21.9 Gastro-esophageal reflux disease without esophagitis; G43.909 Migraine, unspecified, not intractable, without status migrainosus; I25.10 Atherosclerotic heart disease of native coronary artery without angina pectoris; Z88.6 Allergy status to analgesic agent; Z88.1 Allergy status to other antibiotic agents; Z88.5 Allergy status to narcotic agent; Z88.0 Allergy status to penicillin; Z88.8 Allergy status to other drugs, medicaments and biological substances; Z87.11 Personal history of peptic ulcer disease; Z90.49 Acquired absence of other specified parts of digestive tract; Z87.891 Personal history of nicotine dependence; Z83.49 Family history of other endocrine, nutritional and metabolic diseases; W01.0XXD Fall on same level from slipping, tripping and stumbling without subsequent striking against object, subsequent encounter; Y92.34 Swimming pool (public) as the place of occurrence of the external cause; F12.90 Cannabis use, unspecified, uncomplicated; T46.3X6A Underdosing of coronary vasodilators, initial encounter; T46.6X6A Underdosing of antihyperlipidemic and antiarteriosclerotic drugs, initial encounter; Z91.128 Patient's intentional underdosing of medication regimen for other reason
CPT/HCPCS: 99285; 96375 ×7; 96374 ×2; 96372 ×2; 96376 ×3; 36415; 93005; 97161; 97165; 85379; 80053; 80048; 82550 ×2; 82553 ×2; 83735; 84484 ×2; 85025; 85610; 85730; 73030; 71046; 72125; 71275; G0378 ×3; J2060 ×2; J1644 ×2; J2405 ×3; J2270 ×3; J0131; C9113 ×3; J1170; Q9967

== ENCOUNTER 2018-11-08 15:15 | Emergency (ER) | payer OTHER ==
[2018-11-08 15:46] VITALS: RESP 18
[2018-11-08] MEDS ORDERED: METOCLOPRAMIDE 5 MG/ML 2 ML VIAL IVP STA (17:13)
[2018-11-08] MEDS ORDERED: PANTOPRAZOLE 40 MG/10 ML VIAL IVP STA (17:13)
[2018-11-08] MEDS ORDERED: SODIUM CHLORIDE 0.9% 1,000 ML IV STA ×2 (17:13)
--- NOTE | 2018-11-08 17:17 | ED ---
Abdominal Pain HPI - General Chief Complaint: Abdominal Pain Stated Complaint: Dr dejesus, abd pain Time Seen by Provider: 11/08/18 17:02 Source: patient, RN notes reviewed, old records reviewed Mode of arrival: ambulatory Limitations: no limitations - History of Present Illness Initial Comments: This Patient is a 43-year-old female, history of smoking presents emergency department today with 1 month of abdominal pain. Patient reports epigastric nature radiates towards her back. She states it does seem similar to gastritis Patient went to medics breath started her on Zantac and Zofran. She reports she 's been having vomiting episodes and pain is worse after eating. Patient states that she has been using Zantac with no relief of her pain. She was sent in by her PCP for further testing. She also complains that she's been having diarrhea for the past month. She denies any recent antibiotic use. Patient states that she does follow with a GI specialist but does not know the name and hasn't seen them in over a year. Patient reports that she was on Zantac for the past 4 days. - Related Data Home Medications Medication Instructions Recorded Confirmed Acetaminophen Tab [Tylenol] 500 mg PO Q4H PRN 06/05/18 11/08/18 Ondansetron [Zofran ODT] 4 mg PO Q8HR 11/08/18 11/08/18 Ranitidine HCl [Zantac] 150 mg PO BID 11/08/18 11/08/18 Allergies Allergy/AdvReac Type Severity Reaction Status Date / Time Penicillins Allergy Unknown YEAST Verified 11/08/18 18:07 INFECTIONS ciprofloxacin [From Cipro] Allergy Anaphylaxis Verified 11/08/18 18:07 metronidazole [From Flagyl] Allergy Anaphylaxis Verified 11/08/18 18:07 naproxen Allergy Anaphylaxis Verified 11/08/18 18:07 meloxicam [From Mobic] AdvReac Unknown Slurred Verified 11/08/18 18:07 speech, muscle jerking, chest pain diphenhydramine HCl AdvReac Rapid Verified 11/08/18 18:07 [From Benadryl] Heart Rate ibuprofen [From Motrin] AdvReac stomach Verified 11/08/18 18:07 ulcers ketorolac tromethamine AdvReac Hallucinati Verified 11/08/18 18:07 [From Toradol] ons Review of Systems ROS Statement: Those systems with pertinent positive or pertinent negative responses have been documented in the HPI. ROS Other: All systems not noted in ROS Statement are negative. Past Medical History Past Medical History: Chest Pain / Angina, Fibromyalgia, GERD/Reflux, Neurologic Disorder Additional Past Medical History / Comment(s): Migraines- occiptal neuralgia, Aortic aneurysm, endometreosis, anxiety/depression. "heart skips a beat" states hx of stomach ulcers. pt stated her norm is loose/ diarrhea stools sometimes 3 or more a day. History of Any Multi-Drug Resistant Organisms: None Reported Past Surgical History: Appendectomy, Section, Cholecystectomy, Heart Catheterization, Hysterectomy, Orthopedic Surgery Additional Past Surgical History / Comment(s): lt ankle reconstructive sx,rt knee surgery.egd/colonoscopy w/bx-pt stated did'nt gets results. Past Anesthesia/Blood Transfusion Reactions: Motion Sickness, Postoperative Nausea & Vomiting (PONV) Past Psychological History: Anxiety, Depression Smoking Status: Current every day smoker Past Alcohol Use History: None Reported Past Drug Use History: None Reported - Past Family History Mother Family Medical History: Thyroid Disorder Additional Family Medical History / Comment(s): hashimotos' Father Family Medical History: No Reported History Additional Family Medical History / Comment(s): "healthy" General Exam - General Exam Comments Initial Comments: Patient is a well-appearing 43-year-old female. Alert and oriented. Patient appears in no acute distress. Limitations: no limitations General appearance: alert Head exam: Present: atraumatic Eye exam: Present: normal appearance, PERRL, EOMI. Absent: scleral icterus, conjunctival injection, periorbital swelling ENT exam: Present: normal exam, mucous membranes moist Neck exam: Present: normal inspection. Absent: tenderness, meningismus, lymphadenopathy Respiratory exam: Present: normal lung sounds bilaterally. Absent: respiratory distress, wheezes, rales, rhonchi, stridor Cardiovascular Exam: Present: regular rate, normal rhythm, normal heart sounds. Absent: systolic murmur, diastolic murmur, rubs, gallop, clicks GI/Abdominal exam: Present: soft, tenderness (epigastric tenderness), normal bowel sounds. Absent: distended, guarding, rebound, rigid Neurological exam: Present: alert, oriented X3, CN II-XII intact Psychiatric exam: Present: normal affect, normal mood Skin exam: Present: warm, dry, intact, normal color. Absent: rash Course Vital Signs 11/08/18 11/08/18 11/08/18 15:44 17:41 17:54 Temperature 97.7 F 98.4 F Pulse Rate 70 66 57 L Respiratory 18 18 18 Rate Blood Pressure 128/68 133/99 125/95 O2 Sat by Pulse 99 100 99 Oximetry Medical Decision Making - Medical Decision Making 43-year-old female presenting to the pharmacy of 1 month of epigastric abdominal pain. Most likely gastritis. Patient states she also has had some occasional chest patient's breath EKG was reviewed and normal. Patient was in the emergency department when she had a call from her family. She had an emergency and she must leave to go see her daughter. I did discuss with a not have all of her lab work back including troponin. Patient states she understands this and she will leave AGAINST MEDICAL ADVICE if she has to leave at this time. Patient advised that she is any further symptoms or complaints that she can return. Patient will be signing AGAINST MEDICAL ADVICE forms. All risks including were explained Patient. - Lab Data Result diagrams: 11/08/18 17:24 11/08/18 17:24 Lab Results 11/08/18 11/08/18 11/08/18 Range/Units 17:24 17:24 17:24 WBC 10.2 (3.8-10.6) k/uL RBC 5.74 H (3.80-5.40) m/uL Hgb 16.7 H (11.4-16.0) gm/dL Hct 50.9 H (34.0-46.0) % MCV 88.8 (80.0-100.0) fL MCH 29.1 (25.0-35.0) pg MCHC 32.8 (31.0-37.0) g/dL RDW 12.7 (11.5-15.5) % Plt Count 366 (150-450) k/uL Neutrophils % 54 % Lymphocytes % 38 % Monocytes % 4 % Eosinophils % 3 % Basophils % 1 % Neutrophils # 5.5 (1.3-7.7) k/uL Lymphocytes # 3.9 (1.0-4.8) k/uL Monocytes # 0.4 (0-1.0) k/uL Eosinophils # 0.3 (0-0.7) k/uL Basophils # 0.1 (0-0.2) k/uL PT 10.0 (9.0-12.0) sec INR 0.9 (<1.2) APTT 27.5 (22.0-30.0) sec Sodium 140 (137-145) mmol/L Potassium 4.3 (3.5-5.1) mmol/L Chloride 106 (98-107) mmol/L Carbon Dioxide 24 (22-30) mmol/L Anion Gap 10 mmol/L BUN 11 (7-17) mg/dL Creatinine 1.14 H (0.52-1.04) mg/dL Est GFR (CKD-EPI)AfAm 69 (>60 ml/min/1.73 sqM) Est GFR (CKD-EPI)NonAf 60 (>60 ml/min/1.73 sqM) Glucose 82 (74-99) mg/dL Calcium 10.2 (8.4-10.2) mg/dL Total Bilirubin 0.4 (0.2-1.3) mg/dL AST 29 (14-36) U/L ALT 34 (9-52) U/L Alkaline Phosphatase 74 (38-126) U/L Troponin I (0.000-0.034) ng/mL Total Protein 8.4 H (6.3-8.2) g/dL Albumin 4.8 (3.5-5.0) g/dL Amylase 60 (30-110) U/L Lipase 88 (23-300) U/L Urine Color Urine Appearance (Clear) Urine pH (5.0-8.0) Ur Specific [place] (1.001-1.035) Urine Protein (Negative) Urine Glucose (UA) (Negative) Urine Ketones (Negative) Urine Blood (Negative) Urine Nitrite (Negative) Urine Bilirubin (Negative) Urine Urobilinogen (<2.0) mg/dL Ur Leukocyte Esterase (Negative) Urine RBC (0-5) /hpf Urine WBC (0-5) /hpf Ur Squamous Epith Cells (0-4) /hpf Urine Mucus (None) /hpf 11/08/18 11/08/18 Range/Units 17:24 17:24 WBC (3.8-10.6) k/uL RBC (3.80-5.40) m/uL Hgb (11.4-16.0) gm/dL Hct (34.0-46.0) % MCV (80.0-100.0) fL MCH (25.0-35.0) pg MCHC (31.0-37.0) g/dL RDW (11.5-15.5) % Plt Count (150-450) k/uL Neutrophils % % Lymphocytes % % Monocytes % % Eosinophils % % Basophils % % Neutrophils # (1.3-7.7) k/uL Lymphocytes # (1.0-4.8) k/uL Monocytes # (0-1.0) k/uL Eosinophils # (0-0.7) k/uL Basophils # (0-0.2) k/uL PT (9.0-12.0) sec INR (<1.2) APTT (22.0-30.0) sec Sodium (137-145) mmol/L Potassium (3.5-5.1) mmol/L Chloride (98-107) mmol/L Carbon Dioxide (22-30) mmol/L Anion Gap mmol/L BUN (7-17) mg/dL Creatinine (0.52-1.04) mg/dL Est GFR (CKD-EPI)AfAm (>60 ml/min/1.73 sqM) Est GFR (CKD-EPI)NonAf (>60 ml/min/1.73 sqM) Glucose (74-99) mg/dL Calcium (8.4-10.2) mg/dL Total Bilirubin (0.2-1.3) mg/dL AST (14-36) U/L ALT (9-52) U/L Alkaline Phosphatase (38-126) U/L Troponin I <0.012 (0.000-0.034) ng/mL Total Protein (6.3-8.2) g/dL Albumin (3.5-5.0) g/dL Amylase (30-110) U/L Lipase (23-300) U/L Urine Color Light Yellow Urine Appearance Cloudy H (Clear) Urine pH 5.5 (5.0-8.0) Ur Specific [place] 1.006 (1.001-1.035) Urine Protein Negative (Negative) Urine Glucose (UA) Negative (Negative) Urine Ketones Negative (Negative) Urine Blood Negative (Negative) Urine Nitrite Negative (Negative) Urine Bilirubin Negative (Negative) Urine Urobilinogen <2.0 (<2.0) mg/dL Ur Leukocyte Esterase Negative (Negative) Urine RBC 1 (0-5) /hpf Urine WBC 1 (0-5) /hpf Ur Squamous Epith Cells 5 H (0-4) /hpf Urine Mucus Rare H (None) /hpf 11/08/18 17:47 EKG shows normal sinus rhythm normal EKG. Ventricular rate 64 bpm. Verbal 140 ms. Stressors and 78 ms. QT QTc is 48/420 ms. Disposition Clinical Impression: Abdominal pain Disposition: Left Against Medical Advice Condition: Stable Is patient prescribed a controlled substance at d/c from ED?: No Referrals: Susan Cruz MD [Primary Care Provider] - 1-2 days Time of Disposition: 18:16
[2018-11-08 17:40] LABS: Basophils # (A) 0.1 k/uL (0-0.2); Basophils % (A) 1 %; Eosinophils # (A) 0.3 k/uL (0-0.7); Eosinophils % (A) 3 %; HCT 50.9 % (34.0-46.0); HGB 16.7 gm/dL (11.4-16.0); Lymphocytes # (A) 3.9 k/uL (1.0-4.8); Lymphocytes % (A) 38 %; MCH 29.1 pg (25.0-35.0); MCHC 32.8 g/dL (31.0-37.0); MCV 88.8 fL (80.0-100.0); Mean Platelet Volume 6.5; Monocytes # (A) 0.4 k/uL (0-1.0); Monocytes % (A) 4 %; Neutrophils # (A) 5.5 k/uL (1.3-7.7); Neutrophils % (A) 54 %; Platelet Count 366 k/uL (150-450); RBC 5.74 m/uL (3.80-5.40); RDW 12.7 % (11.5-15.5); WBC 10.2 k/uL (3.8-10.6)
[2018-11-08 17:43] VITALS: TEMP 98.4
[2018-11-08 17:43] LABS: Appearance,Urine Cloudy (Clear); Bilirubin,Urine Negative (Negative); Blood,Urine Negative (Negative); Color,Urine Light Yellow; Glucose,Urine (UA) Negative (Negative); Ketones,Urine Negative (Negative); Leukocyte Esterase,Urine Negative (Negative); Mucus,Urine Rare /hpf; Nitrite,Urine Negative (Negative); PH, Urine 5.5 (5.0-8.0); Protein,Urine Negative (Negative); RBC,Urine 1 /hpf (0-5); Specific Gravity,Urine 1.006 (1.001-1.035); Squamous Epithelial Cell,Urine 5 /hpf (0-4); Urobilinogen,Urine <2.0 mg/dL (<2.0); WBC,Urine 1 /hpf (0-5)
[2018-11-08 17:49] LABS: Albumin 4.8 g/dL (3.5-5.0); Calcium 10.2 mg/dL (8.4-10.2); Potassium 4.3 mmol/L (3.5-5.1); Total Bilirubin 0.4 mg/dL (0.2-1.3); Total Protein 8.4 g/dL (6.3-8.2)
[2018-11-08 17:52] LABS: INR 0.9 (<1.2); Partial Thromboplastin Time 27.5 sec (22.0-30.0)
[2018-11-08 17:55] VITALS: BP 125/95; PULSE 57
== END 2018-11-08 18:16 | disposition left against medical advice (07) ==
LOC: EC 15:15
DX: Z79.899 Other long term (current) drug therapy (principal); Z88.0 Allergy status to penicillin; Z88.1 Allergy status to other antibiotic agents; Z88.6 Allergy status to analgesic agent; Z88.8 Allergy status to other drugs, medicaments and biological substances; K21.9 Gastro-esophageal reflux disease without esophagitis; Z87.19 Personal history of other diseases of the digestive system; Z90.49 Acquired absence of other specified parts of digestive tract; Z95.818 Presence of other cardiac implants and grafts; Z90.710 Acquired absence of both cervix and uterus; F17.200 Nicotine dependence, unspecified, uncomplicated; R10.13 Epigastric pain; R11.10 Vomiting, unspecified
CPT/HCPCS: 36415; 93005; 80053; 82150; 83690; 84484; 85025; 85610; 85730; 81001; 99284; 96374; 96375; J2765; C9113

== ENCOUNTER 2019-01-11 13:43 | Emergency (ER) | payer OTHER ==
[2019-01-11 15:58] LABS: Basophils # (A) 0.1 k/uL (0-0.2); Basophils % (A) 1 %; Eosinophils # (A) 0.1 k/uL (0-0.7); Eosinophils % (A) 2 %; HCT 45.5 % (34.0-46.0); HGB 14.8 gm/dL (11.4-16.0); Lymphocytes % (A) 32 %; MCH 29.5 pg (25.0-35.0); MCHC 32.6 g/dL (31.0-37.0); MCV 90.3 fL (80.0-100.0); Mean Platelet Volume 6.7; Monocytes # (A) 0.3 k/uL (0-1.0); Monocytes % (A) 3 %; Neutrophils # (A) 5.7 k/uL (1.3-7.7); Neutrophils % (A) 61 %; Platelet Count 302 k/uL (150-450); RBC 5.03 m/uL (3.80-5.40); RDW 13.2 % (11.5-15.5); WBC 9.4 k/uL (3.8-10.6)
--- NOTE | 2019-01-11 16:08 | ED ---
General Adult HPI - General Chief complaint: Abdominal Pain Stated complaint: Kidney pain/Back pain Time Seen by Provider: 01/11/19 14:33 Source: patient, RN notes reviewed, old records reviewed Mode of arrival: ambulatory Limitations: no limitations - History of Present Illness Initial comments: 43-year-old female patient with a past medical history of history of Hysterectomy, appendectomy, cholecystectomy, fibromyalgia. presents to ED with a waxing and waning right flank pain. Patient states that she has had some blood in her urine in a recent visit with her PCP. Patient also states she has had some waxing and waning dysuria. Patient reports that this pain has intensified in the last week. Patient reports it is difficult to remain comfortable. Patient denies other complaints. Systemic: Pt denies fatigue, myalgia, fever/chills, rash. Pt denies weakness, night sweats, weight loss. Neuro: Pt denies headache, visual disturbances, syncope or pre-syncope. HEENT: Pt denies ocular discharge or irritation, otalgia, rhinorrhea, pharyngitis or notable lymphadenopathy. Cardiopulmonary: Pt denies chest pain, SOB, heart palpitations, dyspnea on exertion. : Pt denies dysuria, burning w/ urination, frequency/urgency. Denies new onset urinary or bowel incontinence. MSK: Pt denies myalgia, loss of strength or function in extremities. Neuro: Pt denies new onset weakness, paresthesias. - Related Data Home Medications Medication Instructions Recorded Confirmed Acetaminophen/Diphenhydramine 1 tab PO HS PRN 01/11/19 01/11/19 [Tylenol PM 500-25mg] DULoxetine HCL [Cymbalta] 30 mg PO HS 01/11/19 01/11/19 Omeprazole 20 mg PO HS 01/11/19 01/11/19 Allergies Allergy/AdvReac Type Severity Reaction Status Date / Time Penicillins Allergy Unknown YEAST Verified 01/11/19 15:28 INFECTIONS ciprofloxacin [From Cipro] Allergy Anaphylaxis Verified 01/11/19 15:28 metronidazole [From Flagyl] Allergy Anaphylaxis Verified 01/11/19 15:28 naproxen Allergy Anaphylaxis Verified 01/11/19 15:28 meloxicam [From Mobic] AdvReac Unknown Slurred Verified 01/11/19 15:28 speech, muscle jerking, chest pain diphenhydramine HCl AdvReac Rapid Verified 01/11/19 15:28 [From Benadryl] Heart Rate ibuprofen [From Motrin] AdvReac stomach Verified 01/11/19 15:28 ulcers ketorolac tromethamine AdvReac Hallucinati Verified 01/11/19 15:28 [From Toradol] ons Review of Systems ROS Statement: Those systems with pertinent positive or pertinent negative responses have been documented in the HPI. ROS Other: All systems not noted in ROS Statement are negative. Past Medical History Past Medical History: Chest Pain / Angina, Fibromyalgia, GERD/Reflux, Neurologic Disorder Additional Past Medical History / Comment(s): Migraines- occiptal neuralgia, Aortic aneurysm, endometreosis, anxiety/depression. "heart skips a beat" states hx of stomach ulcers. pt stated her norm is loose/ diarrhea stools sometimes 3 or more a day. History of Any Multi-Drug Resistant Organisms: None Reported, C-DIFF Date of last positivie culture/infection: 2012 Past Surgical History: Appendectomy, Section, Cholecystectomy, Heart Catheterization, Hysterectomy, Orthopedic Surgery Additional Past Surgical History / Comment(s): lt ankle reconstructive sx,rt knee surgery.egd/colonoscopy w/bx-pt stated did'nt gets results. Past Anesthesia/Blood Transfusion Reactions: Motion Sickness, Postoperative Nausea & Vomiting (PONV) Past Psychological History: Anxiety, Depression Smoking Status: Current every day smoker Past Alcohol Use History: None Reported Past Drug Use History: Marijuana - Past Family History Mother Family Medical History: Thyroid Disorder Additional Family Medical History / Comment(s): hashimotos' Father Family Medical History: No Reported History Additional Family Medical History / Comment(s): "healthy" General Exam - General Exam Comments Initial Comments: Constitutional: NAD, AOX3, Pt has pleasant affect. HEENT: NC/AT, trachea midline, neck supple, no lymphadenopathy. Posterior pharynx non erythematous, without exudates. External ears appear normal, without discharge. Mucous membranes moist. Eyes PERRLA, EOM intact. There is no scleral icterus. No pallor noted. Cardiopulmonary: RRR, no murmurs, rubs or gallops, no JVD noted. Lungs CTAB in anterior and posterior tesfaye. No peripheral edema. Abdominal exam: Abdomen soft and non-distended. Abdomen non-tender to palpation in all 4 quadrants. Bowel sounds active in LLQ. No hepatosplenomegaly. No ecchymosis. Positive right-sided CVA tenderness. Right flank mildly tender to palpation. Neuro: CN II-XII grossly intact. No nuchal rigidity. MSK: No posterior calf tenderness bilaterally, homans sign negative bilaterally. Posterior tibialis and radial pulse +2 bilaterally. Sensation intact in upper and lower extremities. Full active ROM in upper and lower extremities, 5/5 stregnth. Limitations: no limitations Course Vital Signs 01/11/19 01/11/19 14:15 18:12 Temperature 98.2 F 96.9 F L Pulse Rate 71 63 Respiratory 16 18 Rate Blood Pressure 134/86 138/94 O2 Sat by Pulse 98 95 Oximetry Medical Decision Making - Medical Decision Making 43-year-old female patient with a past medical history of history of Hysterectomy, appendectomy, cholecystectomy, fibromyalgia. presents to ED with a waxing and waning right flank pain. Patient states that she has had some blood in her urine in a recent visit with her PCP. Patient also states she has had some waxing and waning dysuria. Patient reports that this pain has intensified in the last week. Patient reports it is difficult to remain comfortable. Patient denies other complaints. Patient vital signs stable, afebrile. Abdomen non-tender to palpation in all 4 quadrants. Bowel sounds active in LLQ. No hepatosplenomegaly. No ecchymosis. Positive right-sided CVA tenderness. Right flank mildly tender to palpation. Patient laboratory investigation revealed non-impressive CBC, CMP. UA negative. Noncontrast CT of abdomen and pelvis displayed a few loops of clusters small bowel no central lower abdomen, mild ileus possible. Hepatic steatosis. These findings were explained patient at length. Patient has been having regular bowel movements, most recently yesterday, has been passing gas. Patient to continue to monitor symptoms and will return to ED if any symptoms worsen, change or if she has not had bowel movement. Patient to follow with primary care provider in 1-2 days for continued evaluation. Case discussed in depth with Dr. Talamantes. - Lab Data Result diagrams: 01/11/19 15:34 01/11/19 15:34 Lab Results 01/11/19 01/11/19 01/11/19 Range/Units 15:34 15:34 15:34 WBC 9.4 (3.8-10.6) k/uL RBC 5.03 (3.80-5.40) m/uL Hgb 14.8 (11.4-16.0) gm/dL Hct 45.5 (34.0-46.0) % MCV 90.3 (80.0-100.0) fL MCH 29.5 (25.0-35.0) pg MCHC 32.6 (31.0-37.0) g/dL RDW 13.2 (11.5-15.5) % Plt Count 302 (150-450) k/uL Neutrophils % 61 % Lymphocytes % 32 % Monocytes % 3 % Eosinophils % 2 % Basophils % 1 % Neutrophils # 5.7 (1.3-7.7) k/uL Lymphocytes # 3.0 (1.0-4.8) k/uL Monocytes # 0.3 (0-1.0) k/uL Eosinophils # 0.1 (0-0.7) k/uL Basophils # 0.1 (0-0.2) k/uL Sodium 138 (137-145) mmol/L Potassium 4.5 (3.5-5.1) mmol/L Chloride 106 (98-107) mmol/L Carbon Dioxide 24 (22-30) mmol/L Anion Gap 8 mmol/L BUN 11 (7-17) mg/dL Creatinine 0.99 (0.52-1.04) mg/dL Est GFR (CKD-EPI)AfAm 82 (>60 ml/min/1.73 sqM) Est GFR (CKD-EPI)NonAf 71 (>60 ml/min/1.73 sqM) Glucose 94 (74-99) mg/dL Calcium 10.0 (8.4-10.2) mg/dL Total Bilirubin 0.5 (0.2-1.3) mg/dL AST 26 (14-36) U/L ALT 46 (9-52) U/L Alkaline Phosphatase 66 (38-126) U/L Total Protein 7.3 (6.3-8.2) g/dL Albumin 4.2 (3.5-5.0) g/dL Urine Color Light Yellow Urine Appearance Cloudy H (Clear) Urine pH 5.0 (5.0-8.0) Ur Specific [place] 1.006 (1.001-1.035) Urine Protein Negative (Negative) Urine Glucose (UA) Negative (Negative) Urine Ketones Negative (Negative) Urine Blood Negative (Negative) Urine Nitrite Negative (Negative) Urine Bilirubin Negative (Negative) Urine Urobilinogen <2.0 (<2.0) mg/dL Ur Leukocyte Esterase Negative (Negative) Urine RBC <1 (0-5) /hpf Urine WBC 1 (0-5) /hpf Ur Squamous Epith Cells 4 (0-4) /hpf Urine Bacteria Occasional H (None) /hpf Urine Mucus Rare H (None) /hpf Disposition Clinical Impression: Abdominal pain Disposition: HOME SELF-CARE Condition: Stable Instructions (If sedation given, give patient instructions): Abdominal Pain (ED ) Additional Instructions: Patient to adhere to previously discussed treatment plan and will take medication(s) as directed. Patient to follow up with PCP in 1-2 days. Patient to return to ED if symptoms do not improve. Is patient prescribed a controlled substance at d/c from ED?: No Referrals: Susan Cruz MD [Primary Care Provider] - 1-2 days Time of Disposition: 17:55
[2019-01-11 16:09] LABS: Appearance,Urine Cloudy (Clear); Bacteria,Urine Occasional /hpf; Bilirubin,Urine Negative (Negative); Blood,Urine Negative (Negative); Color,Urine Light Yellow; Glucose,Urine (UA) Negative (Negative); Ketones,Urine Negative (Negative); Leukocyte Esterase,Urine Negative (Negative); Mucus,Urine Rare /hpf; Nitrite,Urine Negative (Negative); Protein,Urine Negative (Negative); RBC,Urine <1 /hpf (0-5); Specific Gravity,Urine 1.006 (1.001-1.035); Squamous Epithelial Cell,Urine 4 /hpf (0-4); Urobilinogen,Urine <2.0 mg/dL (<2.0)
[2019-01-11 16:25] LABS: Albumin 4.2 g/dL (3.5-5.0); Potassium 4.5 mmol/L (3.5-5.1); Total Bilirubin 0.5 mg/dL (0.2-1.3); Total Protein 7.3 g/dL (6.3-8.2)
--- NOTE | 2019-01-11 16:35 | CT ---
EXAMINATION TYPE: CT abdomen pelvis wo con DATE OF EXAM: 01/11/2019 COMPARISON: 08/05/2016 HISTORY: Right flank pain CT DLP: 553.6 mGycm Automated exposure control for dose reduction was used. TECHNIQUE: Helical acquisition of images was performed from the lung bases through the pelvis. FINDINGS: LUNG BASES: No significant abnormality is appreciated. LIVER/GB: Hepatic parenchyma is diffusely hypoattenuated in comparison to that of the spleen, most co mmonly seen in hepatic steatosis. This finding limits evaluation for hepatic masses. The previously s een hepatic masses on the exam of 2015 are not appreciated without contrast. No gross evidence of hep atic mass is seen. No intrahepatic biliary ductal dilatation. Gallbladder surgically absent PANCREAS: No significant abnormality is seen. SPLEEN: No splenomegaly. ADRENALS: No significant abnormality is seen. KIDNEYS: No hydronephrosis or nephrolithiasis. FREE AIR: No free air is visualized ADENOPATHY: No greater than 1 cm short axis lymph node is seen in the abdomen or pelvis. REPRODUCTIVE ORGANS: Uterus appears surgically absent URINARY BLADDER: No significant abnormality is seen. OSSEOUS STRUCTURES: No significant abnormality is seen. BOWEL: Appendix is not definitely seen however no right lower quadrant fat stranding changes are see n. Sumw-qe-vdfiwauf pain colonic stool is present throughout the bowel. No pericolonic inflammatory f at stranding. Few loops of fluid-filled nondilated small bowel are seen within the central and lower abdomen containing scattered air-fluid levels. IMPRESSION: 1. A FEW LOOPS OF CLUSTERED SMALL BOWEL IN THE CENTRAL AND LOWER ABDOMEN DEMONSTRATE INTERNAL FLUID A ND AIR-FLUID LEVELS HOWEVER ARE NONDILATED. MILD ILEUS IS SUSPECTED. NO INFLAMMATORY CHANGE. 2. HEPATIC STEATOSIS. THE KNOWN HEPATIC MASSES ARE NOT SEEN ON TODAY'S EXAMINATION WITHOUT CONTRAST. 3. NO EVIDENCE OF NEPHROLITHIASIS OR HYDRONEPHROSIS.
[2019-01-11] MEDS ORDERED: MORPHINE SULFATE 4 MG/ML SYRINGE IV STA (16:55)
[2019-01-11] MEDS ORDERED: ONDANSETRON 4 MG/2 ML VIAL IVP STA (17:02)
[2019-01-11 18:13] VITALS: BP 138/94; PULSE 63; RESP 18; TEMP 96.9
== END 2019-01-11 18:13 | disposition home or self-care (01) ==
LOC: EC 13:43
DX: R10.9 Unspecified abdominal pain (principal); K76.0 Fatty (change of) liver, not elsewhere classified; R31.9 Hematuria, unspecified; R30.0 Dysuria; K21.9 Gastro-esophageal reflux disease without esophagitis; F32.9 Major depressive disorder, single episode, unspecified; F41.9 Anxiety disorder, unspecified; F17.200 Nicotine dependence, unspecified, uncomplicated; Z88.0 Allergy status to penicillin; Z88.1 Allergy status to other antibiotic agents; Z88.6 Allergy status to analgesic agent; Z88.8 Allergy status to other drugs, medicaments and biological substances; Z79.899 Other long term (current) drug therapy; Z87.19 Personal history of other diseases of the digestive system; Z90.49 Acquired absence of other specified parts of digestive tract; Z90.710 Acquired absence of both cervix and uterus
CPT/HCPCS: 36415; 80053; 85025; 81001; 74176; 99284; 96374; 96375; J2270; J2405

== ENCOUNTER → 2019-04-16 | Outpatient (CLI) | payer OTHER ==
--- NOTE | 2019-04-16 17:17 | MR ---
EXAMINATION TYPE: MR lumbar spine wo con DATE OF EXAM: 04/16/2019 COMPARISON: None HISTORY: no prior, lumbago with right sciatica for 6 months CONTRAST: 0 mL intravenous Gadavist. TECHNIQUE: Multiplanar, multisequence images of the lumbar spine were acquired. FINDINGS: Cord terminates at the L1-L2 level. L5-S1: Broad-based disc bulge has anterior thecal sac contact. Some increased signals along the right paracentral region suggestive for an annular tear. This has mild anterior thecal sac compression. No AP spinal canal stenosis is present. Neural foramen are patent. There is a small hyperintense area p osterior to the left facet may be a small 0.5 cm synovial cyst. Disc desiccation is present to this l evel L4-L5: Broad-based disc bulge has anterior thecal sac flattening. No AP spinal canal stenosis present . Neural foramen are patent. Disc desiccation is present. L3-L4: No significant disc bulge or disc herniation. No spinal canal stenosis. No foraminal stenosi s. L2-L3: No significant disc bulge or disc herniation. No spinal canal stenosis. No foraminal stenosi s. L1-L2: No significant disc bulge or disc herniation. No spinal canal stenosis. No foraminal stenosi s. T12-L1: No significant disc bulge or disc herniation. No spinal canal stenosis. No foraminal stenos is. IMPRESSION: 1. Broad-based disc bulge L5-S1 may have an annular tear in the right paracentral region. This disc b ulging has mild anterior thecal sac compression. 2. Broad-based disc bulge with anterior thecal sac flattening L4-5. 3. Mild disc desiccation L4-5, L5-S1.
--- NOTE | 2019-04-16 17:27 | MR ---
MR right hip HISTORY: Right hip pain Multiplanar multisequence imaging through the pelvis with small fbhbt-mg-dyci images through the righ t hip. Correlation CT abdomen pelvis 01/11/2019 There is mild remodeling of the femoral head suggestive of osteoarthritic change. There is no evident labral tear. No significant joint effusion is present. Articular cartilage appears maintained. Bone marrow signal is normal. There is some fluid signal present at the gluteus medius tendon insertion co mpatible with tendinosis or partial tear. Degenerative disc changes are present in the visualized spi ne, there is a spinal curvature in the lower lumbar spine. No free fluid within the pelvis. IMPRESSION: Tendinosis or possibly partial tear of the gluteus medius insertion on the proximal femur . Suspect some mild osteoarthritic change.
== END ==
LOC: RADMRIMAIN 12:45
PROVIDERS: ATTEND Family Medicine
DX: M51.17 Intervertebral disc disorders with radiculopathy, lumbosacral region (principal); G95.29 Other cord compression; M25.551 Pain in right hip; M54.41 Lumbago with sciatica, right side; S39.92XD Unspecified injury of lower back, subsequent encounter
CPT/HCPCS: 72148

== ENCOUNTER 2019-08-16 19:33 | Emergency (ER) | payer OTHER ==
[2019-08-16 19:59] VITALS: BP 132/91; PULSE 72; RESP 16; TEMP 97.7
[2019-08-16] MEDS ORDERED: ACETAMINOPHEN TAB 325 MG TAB PO STA (20:32)
--- NOTE | 2019-08-16 20:51 | ED ---
General Adult HPI - General Chief complaint: Extremity Injury, Lower Stated complaint: Hip pain Time Seen by Provider: 08/16/19 20:00 Source: patient, RN notes reviewed, old records reviewed Mode of arrival: ambulatory Limitations: no limitations - History of Present Illness Initial comments: 44-year-old female patient presents ED chief complaint of right hip pain. Patient notes that she has a chronic right hip pain for years. Patient was that she had an MRI in March and she follows up with Dr. Davis for pain management. She reports that pain management recommended following up with a neurologist however she was unable to due to insurance issues. Patient works approximately 6 weeks ago she fell on her right hip. Patient reports that last week her pain in her right hip has been worse. Patient reports that is the same quality of pain, however it is increased in intensity. Patient states that is worse while lying on it, and with movement. Denies any other complaints. Systemic: Pt denies fatigue, fever/chills, rash. Pt denies weakness, night sweats, weight loss. Neuro: Pt denies headache, visual disturbances, syncope or pre-syncope. HEENT: Pt denies ocular discharge or irritation, otalgia, rhinorrhea, pharyngitis or notable lymphadenopathy. Cardiopulmonary: Pt denies chest pain, SOB, heart palpitations, dyspnea on exertion. Abdominal/GI: Pt denies abdominal pain, n/v/d. : Pt denies dysuria, burning w/ urination, frequency/urgency. Denies new onset urinary or bowel incontinence. MSK: Pt denies loss of strength or function in extremities. Neuro: Pt denies new onset weakness, paresthesias. - Related Data Home Medications Medication Instructions Recorded Confirmed Acetaminophen/Diphenhydramine 1 tab PO HS PRN 01/11/19 08/16/19 [Tylenol PM 500-25mg] DULoxetine HCL [Cymbalta] 60 mg PO HS 01/11/19 08/16/19 Omeprazole 20 mg PO HS 01/11/19 01/11/19 Allergies Allergy/AdvReac Type Severity Reaction Status Date / Time Penicillins Allergy Unknown YEAST Verified 08/16/19 19:59 INFECTIONS ciprofloxacin [From Cipro] Allergy Anaphylaxis Verified 08/16/19 19:59 metronidazole [From Flagyl] Allergy Anaphylaxis Verified 08/16/19 19:59 naproxen Allergy Anaphylaxis Verified 08/16/19 19:59 meloxicam [From Mobic] AdvReac Unknown Slurred Verified 08/16/19 19:59 speech, muscle jerking, chest pain diphenhydramine HCl AdvReac Rapid Verified 08/16/19 19:59 [From Benadryl] Heart Rate ibuprofen [From Motrin] AdvReac stomach Verified 08/16/19 19:59 ulcers ketorolac tromethamine AdvReac Hallucinati Verified 08/16/19 19:59 [From Toradol] ons Review of Systems ROS Statement: Those systems with pertinent positive or pertinent negative responses have been documented in the HPI. ROS Other: All systems not noted in ROS Statement are negative. Past Medical History Past Medical History: Chest Pain / Angina, Fibromyalgia, GERD/Reflux, Neurologic Disorder Additional Past Medical History / Comment(s): Migraines- occiptal neuralgia, Aortic aneurysm, endometreosis, anxiety/depression. "heart skips a beat" states hx of stomach ulcers. pt stated her norm is loose/ diarrhea stools sometimes 3 or more a day. History of Any Multi-Drug Resistant Organisms: None Reported, C-DIFF Date of last positivie culture/infection: 2012 Past Surgical History: Appendectomy, Section, Cholecystectomy, Heart Catheterization, Hysterectomy, Orthopedic Surgery Additional Past Surgical History / Comment(s): lt ankle reconstructive sx,rt knee surgery.egd/colonoscopy w/bx-pt stated did'nt gets results. Past Anesthesia/Blood Transfusion Reactions: Motion Sickness, Postoperative Nausea & Vomiting (PONV) Past Psychological History: Anxiety, Depression Smoking Status: Current some day smoker Past Alcohol Use History: None Reported Past Drug Use History: Marijuana - Past Family History Mother Family Medical History: Thyroid Disorder Additional Family Medical History / Comment(s): hashimotos' Father Family Medical History: No Reported History Additional Family Medical History / Comment(s): "healthy" General Exam - General Exam Comments Initial Comments: Constitutional: NAD, AOX3, Pt has pleasant affect. HEENT: NC/AT, trachea midline, neck supple, no lymphadenopathy. Posterior pharynx non erythematous, without exudates. External ears appear normal, without discharge. Mucous membranes moist. Eyes PERRLA, EOM intact. There is no scleral icterus. No pallor noted. Cardiopulmonary: RRR, no murmurs, rubs or gallops, no JVD noted. Lungs CTAB in anterior and posterior tesfaye. No peripheral edema. Abdominal exam: Abdomen soft and non-distended. Abdomen non-tender to palpation in all 4 quadrants. Bowel sounds active in LLQ. No hepatosplenomegaly. No ecchymosis Neuro: CN II-XII grossly intact. No nuchal rigidity. No raccon eyes, no purcell sign, no hemotympanum. No cervical spinal tenderness. MSK: Right hip mild tender to palpation. No erythema, no skin changes. Range of motion intact. Ambulatory without difficulty. Distal pulses intact and equal. Range of motion does exacerbate pain. No posterior calf tenderness bilaterally, homans sign negative bilaterally. Posterior tibialis and radial pulse +2 bilaterally. Sensation intact in upper and lower extremities. Full active ROM in upper and lower extremities, 5/5 stregnth. Limitations: no limitations Course Vital Signs 08/16/19 19:55 Temperature 97.7 F Pulse Rate 72 Respiratory 16 Rate Blood Pressure 132/91 O2 Sat by Pulse 99 Oximetry Medical Decision Making - Medical Decision Making 44-year-old female patient presents ED chief complaint of right hip pain. Patient notes that she has a chronic right hip pain for years. Patient was that she had an MRI in March and she follows up with Dr. Davis for pain management. She reports that pain management recommended following up with a neurologist however she was unable to due to insurance issues. Patient works approximately 6 weeks ago she fell on her right hip. Patient reports that last week her pain in her right hip has been worse. Patient reports that is the same quality of pain, however it is increased in intensity. Patient states that is worse while lying on it, and with movement. Denies any other complaints. Patient vital signs stable, afebrile. Physical exam displayed: Right hip mild tender to palpation. No erythema, no skin changes. Range of motion intact. Ambulatory without difficulty. Distal pulses intact and equal. Range of motion does exacerbate pain. Plain films did not display acute process. [facility] Case discussed with Dr. Ramírez. Disposition Clinical Impression: Hip sprain Disposition: HOME SELF-CARE Condition: Stable Instructions (If sedation given, give patient instructions): Hip Sprain (ED) Additional Instructions: Patient to adhere to previously discussed treatment plan and will take medication(s) as directed. Patient to follow up with PCP in 1-2 days. Patient to return to ED if symptoms do not improve. Follow Up with primary care physician and orthopedic consult. Return to ER if condition worsens. Is patient prescribed a controlled substance at d/c from ED?: No Referrals: Susan Cruz MD [Primary Care Provider] - 1-2 days Roldan Grider DO [Medical Doctor] - 1-2 days
--- NOTE | 2019-08-16 21:00 | XR ---
EXAMINATION TYPE: XR Hip RT and AP Pelvis DATE OF EXAM: 08/16/2019 COMPARISON: NONE HISTORY: Hip pain TECHNIQUE: A single AP view of the pelvis is obtained. Two views of the right hip are obtained. FINDINGS: Pelvic ring is intact. Proximal right femur and hip joint appear intact. There is no sign o f hip dysplasia. Sacroiliac joints appear intact. Impression new graft normal pelvis and right hip exam. No fracture seen.
== END 2019-08-16 22:32 | disposition home or self-care (01) ==
LOC: EC 19:33
DX: S73.101A Unspecified sprain of right hip, initial encounter (principal); K21.9 Gastro-esophageal reflux disease without esophagitis; F32.9 Major depressive disorder, single episode, unspecified; F41.9 Anxiety disorder, unspecified; F17.200 Nicotine dependence, unspecified, uncomplicated; Z88.0 Allergy status to penicillin; Z88.1 Allergy status to other antibiotic agents; Z88.6 Allergy status to analgesic agent; Z88.8 Allergy status to other drugs, medicaments and biological substances; Z79.899 Other long term (current) drug therapy; X58.XXXA Exposure to other specified factors, initial encounter
CPT/HCPCS: 73502; 99284

== ENCOUNTER 2019-09-25 19:45 | Observation (INO) | payer OTHER ==
[2019-09-25] MEDS ORDERED: SODIUM CHLORIDE 0.9% 1,000 ML IV STA (20:41)
--- NOTE | 2019-09-25 20:41 | ED ---
Weakness HPI - General Chief complaint: Weakness Stated complaint: R Side Pain/ Numbness Time Seen by Provider: 09/25/19 19:58 Source: patient, RN notes reviewed, old records reviewed Mode of arrival: ambulatory Limitations: no limitations - History of Present Illness Initial comments: This is a 44-year-old female the ER today she presents today for evaluation of right-sided weakness headache with right-sided facial numbness right-sided arm weakness and inability: Right arm and inability. Right leg. States she relates her right leg symptoms are due to chronic hip.. Patient is currently medical history including fibromyalgia and chronic pain high blood pressure high cholesterol. She is a former smoker. No drugs or alcohol abuse. Patient has no prior evaluation for the symptoms and no recent history of stroke or heart attack MD Complaint: generalized weakness -: days(s) Location: RUE, RLE Severity: moderate Severity scale (1-10): 7 Quality: numbness (Weakness) Consistency: constant Improves with: none Worsens with: none Context: history of similar Associated Symptoms: denies other symptoms - Related Data Home Medications Medication Instructions Recorded Confirmed Dm/Acetaminophen/Doxylamine [Vicks 30 ml PO HS PRN 09/25/19 09/25/19 Nyquil Cold-Flu Liquid] Allergies Allergy/AdvReac Type Severity Reaction Status Date / Time Penicillins Allergy Unknown YEAST Verified 09/25/19 21:58 INFECTIONS ciprofloxacin [From Cipro] Allergy Anaphylaxis Verified 09/25/19 21:58 metronidazole [From Flagyl] Allergy Anaphylaxis Verified 09/25/19 21:58 naproxen Allergy Anaphylaxis Verified 09/25/19 21:58 meloxicam [From Mobic] AdvReac Unknown Slurred Verified 09/25/19 21:58 speech, muscle jerking, chest pain diphenhydramine HCl AdvReac Rapid Verified 09/25/19 21:58 [From Benadryl] Heart Rate ibuprofen [From Motrin] AdvReac stomach Verified 09/25/19 21:58 ulcers ketorolac tromethamine AdvReac Hallucinati Verified 09/25/19 21:58 [From Toradol] ons Review of Systems ROS Statement: Those systems with pertinent positive or pertinent negative responses have been documented in the HPI. ROS Other: All systems not noted in ROS Statement are negative. Past Medical History Past Medical History: Chest Pain / Angina, Fibromyalgia, GERD/Reflux, Neurologic Disorder Additional Past Medical History / Comment(s): Migraines- occiptal neuralgia, Aortic aneurysm, endometreosis, anxiety/depression. "heart skips a beat" states hx of stomach ulcers. pt stated her norm is loose/ diarrhea stools sometimes 3 or more a day. History of Any Multi-Drug Resistant Organisms: None Reported, C-DIFF Date of last positivie culture/infection: 2012 Past Surgical History: Appendectomy, Section, Cholecystectomy, Heart Catheterization, Hysterectomy, Orthopedic Surgery Additional Past Surgical History / Comment(s): lt ankle reconstructive sx,rt knee surgery.egd/colonoscopy w/bx-pt stated did'nt gets results. Past Anesthesia/Blood Transfusion Reactions: Motion Sickness, Postoperative Nausea & Vomiting (PONV) Past Psychological History: Anxiety, Depression Smoking Status: Current some day smoker Past Alcohol Use History: None Reported Past Drug Use History: Marijuana - Past Family History Mother Family Medical History: Thyroid Disorder Additional Family Medical History / Comment(s): hashimotos' Father Family Medical History: No Reported History Additional Family Medical History / Comment(s): "healthy" General Exam - General Exam Comments Initial Comments: NIH of 5 Limitations: no limitations General appearance: alert, in no apparent distress Head exam: Present: atraumatic, normocephalic, normal inspection Eye exam: Present: normal appearance, PERRL, EOMI. Absent: scleral icterus, conjunctival injection, periorbital swelling ENT exam: Present: normal exam, mucous membranes moist Neck exam: Present: normal inspection. Absent: tenderness, meningismus, lymphadenopathy Respiratory exam: Present: normal lung sounds bilaterally. Absent: respiratory distress, wheezes, rales, rhonchi, stridor Cardiovascular Exam: Present: regular rate, normal rhythm, normal heart sounds. Absent: systolic murmur, diastolic murmur, rubs, gallop, clicks GI/Abdominal exam: Present: soft, normal bowel sounds. Absent: distended, tenderness, guarding, rebound, rigid Extremities exam: Present: normal inspection, full ROM, normal capillary refill. Absent: tenderness, pedal edema, joint swelling, calf tenderness Back exam: Present: normal inspection Neurological exam: Present: alert, oriented X3, CN II-XII intact Psychiatric exam: Present: normal affect, normal mood Skin exam: Present: warm, dry, intact, normal color. Absent: rash Course Vital Signs 10/29/19 10/29/19 10/29/19 20:07 20:10 20:43 Temperature 98.1 F Pulse Rate 82 86 86 Respiratory 12 18 18 Rate Blood Pressure 129/95 125/95 125/95 O2 Sat by Pulse 98 98 98 Oximetry 09/25/19 09/25/19 09/25/19 21:55 22:18 23:03 Temperature Pulse Rate 73 77 77 Respiratory 18 16 16 Rate Blood Pressure 173/100 135/94 119/85 O2 Sat by Pulse 97 97 97 Oximetry - Reevaluation(s) Reevaluation #1: 09/25/19 21:28 Medical record is reviewed Reevaluation #2: 09/25/19 21:28 Patient has no improvement in symptoms - Consultations Consultation #1: Spoke with Dr. Sadler who is okay for admission Medical Decision Making - Medical Decision Making 44 female the ER for evaluation patient resents today for evaluation regards to CVA-type symptoms right-sided weakness right arm and leg weakness. Patient to be admitted for neurology to evaluate computed tomography scan CTA head hear negative for acute disease. Patient has no improvement in symptoms - Lab Data Result diagrams: 09/25/19 20:20 09/25/19 20:20 Lab Results 09/25/19 09/25/19 09/25/19 Range/Units 20:20 20:20 20:20 WBC 7.9 (3.8-10.6) k/uL RBC 5.48 H (3.80-5.40) m/uL Hgb 16.1 H (11.4-16.0) gm/dL Hct 48.9 H (34.0-46.0) % MCV 89.3 (80.0-100.0) fL MCH 29.4 (25.0-35.0) pg MCHC 32.9 (31.0-37.0) g/dL RDW 12.5 (11.5-15.5) % Plt Count 357 (150-450) k/uL Neutrophils % 50 % Lymphocytes % 41 % Monocytes % 4 % Eosinophils % 2 % Basophils % 2 % Neutrophils # 3.9 (1.3-7.7) k/uL Lymphocytes # 3.2 (1.0-4.8) k/uL Monocytes # 0.3 (0-1.0) k/uL Eosinophils # 0.2 (0-0.7) k/uL Basophils # 0.2 (0-0.2) k/uL PT 9.8 (9.0-12.0) sec INR 0.9 (<1.2) APTT 26.0 (22.0-30.0) sec Sodium 139 (137-145) mmol/L Potassium 4.6 (3.5-5.1) mmol/L Chloride 106 (98-107) mmol/L Carbon Dioxide 25 (22-30) mmol/L Anion Gap 8 mmol/L BUN 13 (7-17) mg/dL Creatinine 1.16 H (0.52-1.04) mg/dL Est GFR (CKD-EPI)AfAm 67 (>60 ml/min/1.73 sqM) Est GFR (CKD-EPI)NonAf 58 (>60 ml/min/1.73 sqM) Glucose 92 (74-99) mg/dL Calcium 10.2 (8.4-10.2) mg/dL Total Bilirubin 0.4 (0.2-1.3) mg/dL AST 29 (14-36) U/L ALT 40 (9-52) U/L Alkaline Phosphatase 92 (38-126) U/L Creatine Kinase 95 (30-135) U/L Troponin I (0.000-0.034) ng/mL Total Protein 8.2 (6.3-8.2) g/dL Albumin 4.7 (3.5-5.0) g/dL 09/25/19 Range/Units 20:20 WBC (3.8-10.6) k/uL RBC (3.80-5.40) m/uL Hgb (11.4-16.0) gm/dL Hct (34.0-46.0) % MCV (80.0-100.0) fL MCH (25.0-35.0) pg MCHC (31.0-37.0) g/dL RDW (11.5-15.5) % Plt Count (150-450) k/uL Neutrophils % % Lymphocytes % % Monocytes % % Eosinophils % % Basophils % % Neutrophils # (1.3-7.7) k/uL Lymphocytes # (1.0-4.8) k/uL Monocytes # (0-1.0) k/uL Eosinophils # (0-0.7) k/uL Basophils # (0-0.2) k/uL PT (9.0-12.0) sec INR (<1.2) APTT (22.0-30.0) sec Sodium (137-145) mmol/L Potassium (3.5-5.1) mmol/L Chloride (98-107) mmol/L Carbon Dioxide (22-30) mmol/L Anion Gap mmol/L BUN (7-17) mg/dL Creatinine (0.52-1.04) mg/dL Est GFR (CKD-EPI)AfAm (>60 ml/min/1.73 sqM) Est GFR (CKD-EPI)NonAf (>60 ml/min/1.73 sqM) Glucose (74-99) mg/dL Calcium (8.4-10.2) mg/dL Total Bilirubin (0.2-1.3) mg/dL AST (14-36) U/L ALT (9-52) U/L Alkaline Phosphatase (38-126) U/L Creatine Kinase (30-135) U/L Troponin I <0.012 (0.000-0.034) ng/mL Total Protein (6.3-8.2) g/dL Albumin (3.5-5.0) g/dL Disposition Clinical Impression: CVA (cerebral vascular accident) Disposition: ADMITTED IP TO THIS HOSP Condition: Fair Is patient prescribed a controlled substance at d/c from ED?: No Referrals: Susan Cruz MD [Primary Care Provider] - 1-2 days
[2019-09-25 20:55] LABS: Basophils # (A) 0.2 k/uL (0-0.2); Basophils % (A) 2 %; Eosinophils # (A) 0.2 k/uL (0-0.7); Eosinophils % (A) 2 %; HCT 48.9 % (34.0-46.0); HGB 16.1 gm/dL (11.4-16.0); Lymphocytes # (A) 3.2 k/uL (1.0-4.8); Lymphocytes % (A) 41 %; MCH 29.4 pg (25.0-35.0); MCHC 32.9 g/dL (31.0-37.0); MCV 89.3 fL (80.0-100.0); Mean Platelet Volume 6.5; Monocytes # (A) 0.3 k/uL (0-1.0); Monocytes % (A) 4 %; Neutrophils # (A) 3.9 k/uL (1.3-7.7); Neutrophils % (A) 50 %; Platelet Count 357 k/uL (150-450); RBC 5.48 m/uL (3.80-5.40); RDW 12.5 % (11.5-15.5); WBC 7.9 k/uL (3.8-10.6)
[2019-09-25 21:03] LABS: INR 0.9 (<1.2); Prothrombin Time 9.8 sec (9.0-12.0)
[2019-09-25 21:07] LABS: Albumin 4.7 g/dL (3.5-5.0); Calcium 10.2 mg/dL (8.4-10.2); Potassium 4.6 mmol/L (3.5-5.1); Total Bilirubin 0.4 mg/dL (0.2-1.3); Total Protein 8.2 g/dL (6.3-8.2)
--- NOTE | 2019-09-25 21:19 | CT ---
EXAMINATION: CT brain wo con for TPA DATE AND TIME: 09/25/2019 9:07 PM CLINICAL INDICATION: PHH; Neuro deficit, acute, stroke suspected ; right-sided weakness TECHNIQUE: Standard departmental protocol.; 1101.8; COMPARISON: CT 04/11/2018 FINDINGS: The calvarium is intact. There is no intracranial hemorrhage. There is no intracranial mass or mass effect. No definite new intra-axial or extra-axial attenuation defect. The paranasal sinuses, middle ear cavities, and mastoid sinus air cells are clear. The orbits are unremarkable. IMPRESSION: NO ACUTE PROCESS.
--- NOTE | 2019-09-25 21:31 | CT ---
EXAMINATION TYPE: CT angio head neck contrast and with 3-D reconstruction renderings DATE OF EXAM: 09/25/2019 HISTORY: Right side weakness x1 week COMPARISON: CT brain without contrast 09/25/2019 at 9:[address] DLP: 537.2 mGycm. Automated Exposure Control for Dose Reduction was Utilized. TECHNIQUE: CTA scan of the neck is performed with IV Contrast, patient injected with 65 mL of Isovue 370, axial images are obtained, coronal and sagittal reformatted images are reviewed. Three-D recons tructed images are created on an independent workstation and reviewed. FINDINGS: NECK VASCULAR STRUCTURES: The bilateral carotid and vertebral arterial systems are widely patent with out hemodynamically significant stenosis or dissection. Bilateral carotid atherosclerotic tortuosity noted. The venous structures are widely patent. NECK SOFT TISSUES AND SKELETAL STRUCTURES: No incidental findings. INTRACRANIAL VASCULAR STRUCTURES: The anterior and posterior arterial structures are widely patent wi thout significant stenosis or dissection or aneurysm. Dural venous sinuses are widely patent. INTRACRANIAL/SPINAL STRUCTURES: No incidental findings. OTHER: No other findings. IMPRESSION: UNREMARKABLE STUDY.
[2019-09-25] MEDS ORDERED: ASPIRIN 325 MG TAB PO STA (23:16)
[2019-09-25 23:35] LABS: Appearance,Urine Clear (Clear); Bilirubin,Urine Negative (Negative); Blood,Urine Negative (Negative); Color,Urine Light Yellow; Glucose,Urine (UA) Negative (Negative); Ketones,Urine Negative (Negative); Leukocyte Esterase,Urine Negative (Negative); Nitrite,Urine Negative (Negative); Protein,Urine Negative (Negative); Urobilinogen,Urine <2.0 mg/dL (<2.0)
[2019-09-25 23:42] LABS: Specific Gravity,Urine >1.050 (1.001-1.035)
--- NOTE | 2019-09-25 23:57 | XR ---
INDICATION: Pain COMPARISON: None FINDINGS: AP, oblique, and lateral views of the right foot are obtained. Bony structures are intact. Bone mineralization is within normal limits. Joint spaces are preserved. There is posterior and plantar calcaneal enthesopathy. Soft tissues within normal limits. No radio-opaque foreign bodies. IMPRESSION: No acute fracture or subluxation identified.
[2019-09-26 00:05] VITALS: BMI 30.4
[2019-09-26] MEDS: SODIUM CHLORIDE 0.9% 1,000 ML IV SCH ×3 (00:14→21:57)
[2019-09-26 06:50] LABS: Cholesterol 253 mg/dL (<200); HDL Cholesterol 59 mg/dL (40-60); LDL Cholesterol,Calculated 145 mg/dL (0-99); Triglycerides 245 mg/dL (<150)
--- NOTE | 2019-09-26 12:12 | P.HPIM ---
History of Present Illness 44-year-old female came in with complaints of right-sided weakness including involving the face and right hand and leg along with numbness her symptoms are improving at this time patient doesn't have any significant weakness now oh although patient has very mild weakness as per neurologist in the right hand. Patient does have past medical history of fibromyalgia and the partial tear of the gluteus medius muscle in the past patient was also complaining of tingling and numbness in the right side of body. Patient does have history of migraine. Neurology validate the patient they believe migraine may be contributing to her symptoms her migraine involves visual loss transient. had a CAT scan of the abdomen and CT angios the head and neck both of which are negative patient will undergo MRI as recommended by neurology and patient will be started on nortriptyline. Patient denied any fever chills patient was a valid by orthopedic surgery in the past for issues with the gluteus medius muscle patient was on Cymbalta for for peripheral neuropathy and neuropathic pain which she stopped. Review of Systems REVIEW OF SYSTEMS: CONSTITUTIONAL: No fever, no malaise, no fatigue. HEENT: No recent visual problems or hearing problems. Denied any sore throat. CARDIOVASCULAR: No chest pain, orthopnea, PND, no palpitations, no syncope. PULMONARY: No shortness of breath, no cough, no hemoptysis. GASTROINTESTINAL: No diarrhea, no nausea, no vomiting, no abdominal pain. NEUROLOGICAL: as mentioned in HPI HEMATOLOGICAL: Denies any bleeding or petechiae. GENITOURINARY: Denies any burning micturition, frequency, or urgency. MUSCULOSKELETAL/RHEUMATOLOGICAL: patient does have pain in the right hip area with movement ENDOCRINE: Denies any polyuria or polydipsia. The rest of the 14-point review of systems is negative. Past Medical History Past Medical History: Chest Pain / Angina, Fibromyalgia, GERD/Reflux, Neurologic Disorder Additional Past Medical History / Comment(s): Migraines- occiptal neuralgia, Aortic aneurysm, endometreosis, anxiety/depression. "heart skips a beat" states hx of stomach ulcers. pt stated her norm is loose/ diarrhea stools sometimes 3 or more a day. History of Any Multi-Drug Resistant Organisms: None Reported, C-DIFF Date of last positivie culture/infection: 2012 MDRO Source:: unknown Past Surgical History: Appendectomy, Section, Cholecystectomy, Heart Catheterization, Hysterectomy, Orthopedic Surgery Additional Past Surgical History / Comment(s): lt ankle reconstructive sx,rt knee surgery.egd/colonoscopy w/bx-pt stated did'nt gets results. Past Anesthesia/Blood Transfusion Reactions: Motion Sickness, Postoperative Nausea & Vomiting (PONV) Past Psychological History: Anxiety, Depression Additional Psychological History / Comment(s): pt lives with sig other. has a pet dog, and lizard. pt is independant. no home cares services. no medical equipment. pt does factory work. Smoking Status: Former smoker Past Alcohol Use History: None Reported Additional Past Alcohol Use History / Comment(s): smokes 1/2 ppd since age 16 Past Drug Use History: Marijuana Additional Drug Use History / Comment(s): MARIJUANA USE 1-2 TIMES WEEKLY - Past Family History Mother Family Medical History: Thyroid Disorder Additional Family Medical History / Comment(s): hashimotos' Father Family Medical History: No Reported History Additional Family Medical History / Comment(s): "healthy" Medications and Allergies Home Medications Medication Instructions Recorded Confirmed Type Dm/Acetaminophen/Doxylamine [Vicks 30 ml PO HS PRN 09/25/19 09/25/19 History Nyquil Cold-Flu Liquid] Allergies Allergy/AdvReac Type Severity Reaction Status Date / Time Penicillins Allergy Unknown YEAST Verified 09/25/19 21:58 INFECTIONS ciprofloxacin [From Cipro] Allergy Anaphylaxis Verified 09/25/19 21:58 metronidazole [From Flagyl] Allergy Anaphylaxis Verified 09/25/19 21:58 naproxen Allergy Anaphylaxis Verified 09/25/19 21:58 meloxicam [From Mobic] AdvReac Unknown Slurred Verified 09/25/19 21:58 speech, muscle jerking, chest pain diphenhydramine HCl AdvReac Rapid Verified 09/25/19 21:58 [From Benadryl] Heart Rate ibuprofen [From Motrin] AdvReac stomach Verified 09/25/19 21:58 ulcers ketorolac tromethamine AdvReac Hallucinati Verified 09/25/19 21:58 [From Toradol] ons Physical Exam Vitals: Vital Signs Temp Pulse Pulse Resp BP BP Pulse Ox 09/26/19 08:05 97.3 F L 65 18 118/77 98 09/26/19 04:00 97.8 F 72 18 135/88 97 09/25/19 23:48 98.1 F 77 16 119/85 97 09/25/19 23:36 97.6 F 71 18 137/94 98 09/25/19 23:03 77 16 119/85 97 09/25/19 22:18 77 16 135/94 97 09/25/19 21:55 73 18 173/100 97 09/25/19 20:43 86 18 125/95 98 09/25/19 20:10 86 18 125/95 98 09/25/19 20:07 98.1 F 82 12 129/95 98 Intake and Output 09/25/19 09/26/19 09/26/19 22:59 06:59 14:59 Intake Total 1518 Balance 1518 Intake: Intake, IV Titration 800 Amount Sodium Chloride 0.9% 1, 800 000 ml @ 100 mls/hr IV . Q10H RIGO Rx#:[id number] Oral 718 Other: # Voids 2 Weight 90.718 kg 93.7 kg PHYSICAL EXAMINATION: GENERAL: The patient is alert and oriented x3, not in any acute distress. Well developed, well nourished. HEENT: Pupils are round and equally reacting to light. EOMI. No scleral icterus. No conjunctival pallor. Normocephalic, atraumatic. No pharyngeal erythema. No thyromegaly. CARDIOVASCULAR: S1 and S2 present. No murmurs, rubs, or gallops. PULMONARY: Chest is clear to auscultation, no wheezing or crackles. ABDOMEN: Soft, nontender, nondistended, normoactive bowel sounds. No palpable organomegaly. MUSCULOSKELETAL: No joint swelling or deformity. EXTREMITIES: No cyanosis, clubbing, or pedal edema. NEUROLOGICAL: Gross neurological examination did not reveal any focal deficitsexcept for right hand 4+/5 strength. A1c was not tested SKIN: No rashes. Results CBC & Chem 7: 09/25/19 20:20 09/25/19 20:20 Labs: Abnormal Lab Results - Last 24 Hours (Table) 09/25/19 09/25/19 09/25/19 Range/Units 20:20 20:20 23:00 RBC 5.48 H (3.80-5.40) m/uL Hgb 16.1 H (11.4-16.0) gm/dL Hct 48.9 H (34.0-46.0) % Creatinine 1.16 H (0.52-1.04) mg/dL Triglycerides (<150) mg/dL Cholesterol (<200) mg/dL LDL Cholesterol, Calc (0-99) mg/dL Ur Specific [place] >1.050 H (1.001-1.035) 09/26/19 Range/Units 06:00 RBC (3.80-5.40) m/uL Hgb (11.4-16.0) gm/dL Hct (34.0-46.0) % Creatinine (0.52-1.04) mg/dL Triglycerides 245 H (<150) mg/dL Cholesterol 253 H (<200) mg/dL LDL Cholesterol, Calc 145 H (0-99) mg/dL Ur Specific [place] (1.001-1.035) Thrombosis Risk Factor Assmnt - Choose All That Apply Any of the Below Risk Factors Present?: Yes Each Factor Represents 1 point: Obesity (BMI >25) Thrombosis Risk Factor Assessment Total Risk Factor Score: 1 Thrombosis Risk Factor Assessment Level: Low Risk Assessment and Plan Plan: -weakness on the right side of the body transient presently much better no significant weakness at this time possible differentials being stroke or migraine MRI as mentioned above, CT angios is essentially within normal limits. LDL is elevated -fibromyalgiapatient will be started on nortriptyline -History of migraine -Partial tear in the gluteus mediusfor which orthopedic surgery will be consulted -hyperlipidemia patient will be started on statin
[2019-09-26] MEDS ORDERED: LORazepam 1 MG TAB PO STA (12:27)
--- NOTE | 2019-09-26 15:36 | MR ---
EXAMINATION TYPE: MR brain wo con DATE OF EXAM: 09/26/2019 COMPARISON: CT brain 09/25/2019 HISTORY: Right side weakness x1 week, stroke vs. MS CONTRAST: Performed utilizing 0 mL intravenous Gadavist gadolinium contrast. TECHNIQUE: Multiplanar, multiecho imaging on a 3.0 Jeni magnet is performed through the brain. Stud y is performed within 24 hours of arrival to the hospital. The craniovertebral junction is normal. The pituitary is normal. Diffusion-weighted imaging is performed. No abnormal hyperintensity is present to suggest an acute i ntracranial infarct or acute ischemic change. There is diffuse increased signal within the periventricular white matter extending into the centrum semiovale bilaterally. This is confluent and ill-defined. White matter changes atypical for ischemic change. Likewise, more typical focal plaques identified wi th multiple sclerosis are not apparent. Consider other etiologies for demyelination type findings. Co nsider ADEM, has this patient had recent vaccinations? An unusual etiology could include HIV infectio n. No mass effect is evident ventricles and sulci appear appropriate without midline shift or effacement . No ex vacuole effect is evident. Ventricles and sulci are appropriate for the patient age. IMPRESSIONS: 1. There is diffuse confluent white matter changes in the periventricular white matter bilaterally. C onsidering an etiology such as ADEM. 2. No suspicious changes to suggest an acute typical vascular distribution ischemic event.
--- NOTE | 2019-09-26 18:32 | P.CNNES ---
History of Present Illness Consult date: 09/26/19 Reason for Consult: Concern for stroke Chief complaint: R-sided numbness/tingling/pain and weakness History of Present Illness: HISTORY OF PRESENT ILLNESS: Thank you for allowing me to evaluate Ms. Ashley Alvarez. Ms. Alvarez is a 44-year-old woman with past medical history of fibromyalgia, GERD, migraines, aortic aneurysm, endometriosis, anxiety/depression, presenting to [facility] for R hip pain, consulting Neurology for R-sided numbness/tingling/pain along with some weakness. Patient states that about 2-3 days ago, she started having a migraine, which patient has a long history of, but this time, it was unusual because it came with R-sided numbness/tingling and pain along with some weakness. Patient states that the weakness was more of an issue with coordination with her R hand. Patient has been having R hip pain for months (for which MRI was done and showed torn gluteus muscle. Patient actually came to the hospital more for the R hip pain than the unusual sensation she has been having for 2-3 days. Patient denies ever having similar symptoms. Patient states that she has about 3 bad migraine episodes per week. With her headache, it's usually around 8/10 pain, occipital but more R-sided, associated with photophobia, phonophobia, nausea/vomiting and R eye vision change (her central vision gets more affected peripheral vision). Denies any pain with eye movement or double vision. Patient has never had similar symptoms of sensation deficits or weakness. PAST MEDICAL HISTORY: Fibromyalgia, GERD, migraines, aortic aneurysm, endometriosis, anxiety/depression PAST SURGICAL HISTORY: Appendectomy, , cholecystectomy, heart catheterization, hysterectomy, ankle reconstructive surgery, right knee surgery HOME MEDICATIONS: None ALLERGIES: Penicillin, ciprofloxacin, metronidazole, naproxen, meloxicam, diphenhydramine, ibuprofen, ketorolac SOCIAL HISTORY: Current every day smoker, endorses marijuana use FAMILY HISTORY: Mother had Jenniffer's disease. REVIEW OF SYSTEMS: The 14 systems are reviewed and no additional points are identified compared to the review of systems documented history and physical PHYSICAL EXAMINATION: VITAL SIGNS: T 97.8 HR 72 RR 18 BP 135/88 O2 sat 97% on RA GEN.: NAD, pleasant and cooperative HEENT: NCAT, sclera without icterus NECK: Supple SKIN AND EXTREMITIES: Warm to touch, no edema NEURO: MENTAL STATUS: Patient alert and oriented to self, place, time. Able to name the current president. Speech fluent, able to name and repeat, following all commands readily. No right and left disorientation, neglect. CRANIAL NERVES II THROUGH XII: II: Pupils are equal and reactive to light symmetrically. No afferent pupillary defect. Visual tesfaye are intact. III, IV, : No ptosis. Extraocular movements full. No nystagmus. V: Facial sensation intact from V1-3. VII. No clear facial asymmetry. VIII: Hearing intact to finger rub bilaterally. IX, X: Symmetric palate elevation. XI: Shoulder shrug intact. XII: Tongue midline without fasciculation or atrophy. MOTOR: Normal bulk/tone. No pronator drift or tremor. Strength is 5/5 in LUE and LLE. RUE 4/5. RLE limited by hip pain (patient on MRI showing muscle tear) but grossly 4+/5. No satelliting of UEs. Meyers's negative SENSORY: Intact to light touch, temperature in all 4 extremities. Romberg is negative. REFLEXES: 2+ throughout. Toes are downgoing. COORDINATION: Finger to nose and heel to jiang intact. No dysmetria. GAIT: Narrow-based and stable. L side preference due to pain in her R hip. Patient states she cannot walk on her toes or heels due to feeling off balance, but able to tandem walk with some caution. DIAGNOSTIC TESTING: LABORATORY: WBC 7.9 hemoglobin 16.1 platelet 357 sodium 139 potassium 4.6 chloride 106 bicarb 25 BUN 13 creatinine 1.16 glucose 92 AST 29 ALT 40 alk phos 92 troponin <0.012 Total cholesterol 253 LDL 145 HDL 59 triglycerides 245 urinalysis negative IMAGING: CT head without contrast 09/25/2019: No acute process. CTA head and neck with and without contrast 09/25/2019: Unremarkable study ASSESSMENT: 44-year-old woman with past medical history of fibromyalgia, GERD, migraines, aortic aneurysm, endometriosis, anxiety/depression, presenting to [facility] for R hip pain, consulting Neurology for R-sided numbness/tingling/pain along with some weakness. Differential diagnosis at this time include complex migraine vs. acute stroke vs. autoimmune such as multiple sclerosis. Recommend stroke work-up/management ASCVD score low. RECOMMENDATIONS: 1. MRI brain without contrast 2. Transthoracic echocardiogram 3. Cardiac monitoring 4. Permissive HTN for 24-48 hours SBP >220. Give labetalol 10mg IV q1h PRN for SBP >220 DBP >110 5. ASA 81mg qday and Plavix 75mg qday (dual antiplatelet therapy for 3 weeks per POINT trial, then Aspirin 81mg qday only) 6. Atorvastatin 80mg qhs 7. Labs: A1C, TSH, FLP 8. PT/OT/ST per protocol 9. Discussed with patient about stroke prevention guidelines. Medication compliance, hypertension/diabetes control, lifestyle changes including no smoking, drinking in moderation, losing weight, exercising, eating healthier 10. Neurology will continue to follow 11. Patient needs to follow up with neurologist as outpatient with her 1-2 weeks of discharge Past Medical History Past Medical History: Chest Pain / Angina, Fibromyalgia, GERD/Reflux, Neurologic Disorder Additional Past Medical History / Comment(s): Migraines- occiptal neuralgia, Aortic aneurysm, endometreosis, anxiety/depression. "heart skips a beat" states hx of stomach ulcers. pt stated her norm is loose/ diarrhea stools sometimes 3 or more a day. History of Any Multi-Drug Resistant Organisms: None Reported, C-DIFF Date of last positivie culture/infection: 2012 MDRO Source:: unknown Past Surgical History: Appendectomy, Section, Cholecystectomy, Heart Catheterization, Hysterectomy, Orthopedic Surgery Additional Past Surgical History / Comment(s): lt ankle reconstructive sx,rt knee surgery.egd/colonoscopy w/bx-pt stated did'nt gets results. Past Anesthesia/Blood Transfusion Reactions: Motion Sickness, Postoperative Nausea & Vomiting (PONV) Past Psychological History: Anxiety, Depression Additional Psychological History / Comment(s): pt lives with sig other. has a pet dog, and lizard. pt is independant. no home cares services. no medical equipment. pt does factory work. Smoking Status: Former smoker Past Alcohol Use History: None Reported Additional Past Alcohol Use History / Comment(s): smokes 1/2 ppd since age 16 Past Drug Use History: Marijuana Additional Drug Use History / Comment(s): MARIJUANA USE 1-2 TIMES WEEKLY - Past Family History Mother Family Medical History: Thyroid Disorder Additional Family Medical History / Comment(s): hashimotos' Father Family Medical History: No Reported History Additional Family Medical History / Comment(s): "healthy" Medications and Allergies Home Medications Medication Instructions Recorded Confirmed Type Dm/Acetaminophen/Doxylamine [Vicks 30 ml PO HS PRN 09/25/19 09/25/19 History Nyquil Cold-Flu Liquid] Allergies Allergy/AdvReac Type Severity Reaction Status Date / Time Penicillins Allergy Unknown YEAST Verified 09/25/19 21:58 INFECTIONS ciprofloxacin [From Cipro] Allergy Anaphylaxis Verified 09/25/19 21:58 metronidazole [From Flagyl] Allergy Anaphylaxis Verified 09/25/19 21:58 naproxen Allergy Anaphylaxis Verified 09/25/19 21:58 meloxicam [From Mobic] AdvReac Unknown Slurred Verified 09/25/19 21:58 speech, muscle jerking, chest pain diphenhydramine HCl AdvReac Rapid Verified 09/25/19 21:58 [From Benadryl] Heart Rate ibuprofen [From Motrin] AdvReac stomach Verified 09/25/19 21:58 ulcers ketorolac tromethamine AdvReac Hallucinati Verified 09/25/19 21:58 [From Toradol] ons Physical Examination - Vital Signs Vital Signs: Vital Signs Temp Pulse Pulse Resp BP BP Pulse Ox 09/26/19 04:00 97.8 F 72 18 135/88 97 09/25/19 23:48 98.1 F 77 16 119/85 97 09/25/19 23:36 97.6 F 71 18 137/94 98 09/25/19 23:03 77 16 119/85 97 09/25/19 22:18 77 16 135/94 97 09/25/19 21:55 73 18 173/100 97 09/25/19 20:43 86 18 125/95 98 09/25/19 20:10 86 18 125/95 98 09/25/19 20:07 98.1 F 82 12 129/95 98 Intake and Output 09/25/19 09/26/19 09/26/19 22:59 06:59 14:59 Other: Weight 90.718 kg 93.7 kg Results - Laboratory Findings CBC and BMP: 09/25/19 20:20 09/25/19 20:20 Abnormal Lab Findings: Abnormal Labs 09/25/19 09/25/19 09/25/19 20:20 20:20 23:00 RBC 5.48 H Hgb 16.1 H Hct 48.9 H Creatinine 1.16 H Triglycerides Cholesterol LDL Cholesterol, Calc Ur Specific [place] >1.050 H 09/26/19 06:00 RBC Hgb Hct Creatinine Triglycerides 245 H Cholesterol 253 H LDL Cholesterol, Calc 145 H Ur Specific [place]
[2019-09-26] MEDS ORDERED: NORTRIPTYLINE 25 MG CAP PO SCH (21:00)
[2019-09-26] MEDS ORDERED: ATORVASTATIN 40 MG TAB PO SCH (21:00)
[2019-09-26] MEDS ORDERED: TEMAZEPAM 15 MG CAP PO PRN (21:14)
[2019-09-26] MEDS: MAGNESIUM OXIDE 400 MG TAB PO SCH (21:57)
[2019-09-26] MEDS: ASPIRIN 81 MG PO SCH (21:57)
[2019-09-26] MEDS: CLOPIDOGREL 75 MG TAB PO SCH (21:57)
[2019-09-26] MEDS ORDERED: ASPIRIN 325 MG TAB PO SCH (23:17)
[2019-09-27 06:51] VITALS: PULSE 65; RESP 16; TEMP 98.3
[2019-09-27] MEDS: SODIUM CHLORIDE 0.9% 1,000 ML IV SCH (06:51)
--- NOTE | 2019-09-27 08:29 | P.CNOR ---
History of Present Illness - [facility] Consult date: 09/27/19 Consult reason: joint pain (Right hip pain) History of present illness: This is a 44-year-old female who presents to the emergency department with neurologic changes with weakness and numbness and tingling to the right side, including her face. She has history of migraines in the past. She is being worked up for possible CVA. She complains of right hip pain for the past month. She states that she had an MRI ordered by her primary care physician about a month ago. She states that the MRI revealed a gluteus medius tear in the right hip. She has not yet been evaluated by orthopedics or had any physical therapy or treatment. She is unable to take anti-inflammatories secondary to anaphylaxis-type reaction. Past Medical History Past Medical History: Chest Pain / Angina, Fibromyalgia, GERD/Reflux, Neurologic Disorder Additional Past Medical History / Comment(s): Migraines- occiptal neuralgia, Aortic aneurysm, endometreosis, anxiety/depression. "heart skips a beat" states hx of stomach ulcers. pt stated her norm is loose/ diarrhea stools sometimes 3 or more a day. History of Any Multi-Drug Resistant Organisms: None Reported, C-DIFF Year Discovered:: 2012 MDRO Source:: unknown Past Surgical History: Appendectomy, Section, Cholecystectomy, Heart Catheterization, Hysterectomy, Orthopedic Surgery Additional Past Surgical History / Comment(s): lt ankle reconstructive sx,rt knee surgery.egd/colonoscopy w/bx-pt stated did'nt gets results. Past Anesthesia/Blood Transfusion Reactions: Motion Sickness, Postoperative Nausea & Vomiting (PONV) Past Psychological History: Anxiety, Depression Additional Psychological History / Comment(s): pt lives with sig other. has a pet dog, and lizard. pt is independant. no home cares services. no medical equipment. pt does factory work. Smoking Status: Former smoker Past Alcohol Use History: None Reported Additional Past Alcohol Use History / Comment(s): smokes 1/2 ppd since age 16 Past Drug Use History: Marijuana Additional Drug Use History / Comment(s): MARIJUANA USE 1-2 TIMES WEEKLY - Past Family History Mother Family Medical History: Thyroid Disorder Additional Family Medical History / Comment(s): hashimotos' Father Family Medical History: No Reported History Additional Family Medical History / Comment(s): "healthy" Medications and Allergies Home Medications Medication Instructions Recorded Confirmed Type Dm/Acetaminophen/Doxylamine [Vicks 30 ml PO HS PRN 09/25/19 09/25/19 History Nyquil Cold-Flu Liquid] Allergies Allergy/AdvReac Type Severity Reaction Status Date / Time Penicillins Allergy Unknown YEAST Verified 09/25/19 21:58 INFECTIONS ciprofloxacin [From Cipro] Allergy Anaphylaxis Verified 09/25/19 21:58 metronidazole [From Flagyl] Allergy Anaphylaxis Verified 09/25/19 21:58 naproxen Allergy Anaphylaxis Verified 09/25/19 21:58 meloxicam [From Mobic] AdvReac Unknown Slurred Verified 09/25/19 21:58 speech, muscle jerking, chest pain diphenhydramine HCl AdvReac Rapid Verified 09/25/19 21:58 [From Benadryl] Heart Rate ibuprofen [From Motrin] AdvReac stomach Verified 09/25/19 21:58 ulcers ketorolac tromethamine AdvReac Hallucinati Verified 09/25/19 21:58 [From Toradol] ons Physical Examination This is a 44-year-old female in no acute distress. She is alert and oriented at this time. Exam of the lower extremities reveals no obvious deformity. Extremities are symmetric. There is pain on palpation about the lateral aspect of the hip. There is pain with internal rotation of the hip. Minimal pain with external rotation. She has pain with resisted abduction of the hip. Straight leg raise is positive, producing pain to the right hip and buttock. She complains of posterior, lateral and anterior hip pain with motion. She has full foot and ankle motion bilaterally. Neurovascular status to the lower extremity is intact. Remainder of the musculoskeletal exam is unremarkable. Results No hip imaging is available. There was a foot x-ray which is negative for fracture or bony abnormality. - Labs Labs: H & H 09/25/19 Range/Units 20:20 Hgb 16.1 H (11.4-16.0) gm/dL Hct 48.9 H (34.0-46.0) % Coagulation 09/25/19 Range/Units 20:20 INR 0.9 (<1.2) Result Diagrams: 09/25/19 20:20 09/25/19 20:20 Assessment and Plan (1) Right hip pain Current Visit: Yes Status: Acute Code(s): M25.551 - PAIN IN RIGHT HIP SNOMED Code(s): 09680776 (2) Right sided weakness Current Visit: Yes Status: Acute Code(s): R53.1 - WEAKNESS SNOMED Code(s): 842638869 Plan: The clinical findings are discussed the patient. It is recommended that she have physical therapy to treat her right hip pain. There possibly is a component of radiculopathy. She is unable to take anti-inflammatory medications. I am recommending physical therapy for treatment for pain modalities and strengthening. She is to follow-up in our office in 2-3 weeks for reevaluation.
[2019-09-27 08:48] LABS: Basophils # (A) 0.1 k/uL (0-0.2); Basophils % (A) 1 %; Eosinophils # (A) 0.2 k/uL (0-0.7); Eosinophils % (A) 2 %; HCT 41.9 % (34.0-46.0); HGB 13.4 gm/dL (11.4-16.0); Lymphocytes # (A) 3.6 k/uL (1.0-4.8); Lymphocytes % (A) 44 %; MCH 28.8 pg (25.0-35.0); MCHC 32.1 g/dL (31.0-37.0); MCV 89.7 fL (80.0-100.0); Mean Platelet Volume 6.4; Monocytes # (A) 0.4 k/uL (0-1.0); Monocytes % (A) 5 %; Neutrophils # (A) 3.8 k/uL (1.3-7.7); Neutrophils % (A) 47 %; Platelet Count 305 k/uL (150-450); RBC 4.67 m/uL (3.80-5.40); RDW 12.5 % (11.5-15.5); WBC 8.1 k/uL (3.8-10.6)
[2019-09-27 08:52] LABS: Calcium 9.5 mg/dL (8.4-10.2); Potassium 4.4 mmol/L (3.5-5.1)
[2019-09-27] MEDS: CLOPIDOGREL 75 MG TAB PO SCH (09:35)
[2019-09-27] MEDS: ASPIRIN 81 MG PO SCH (09:35)
[2019-09-27] MEDS: MAGNESIUM OXIDE 400 MG TAB PO SCH (09:35)
[2019-09-27 10:38] VITALS: BP 115/83
--- NOTE | 2019-09-27 11:30 | P.PN ---
Progress Note - Text Progress Note Date: 09/27/19 SUBJECTIVE/INTERVAL EVENTS: No acute overnight events. Patient states she slept well last night. Patient's R-sided paresthesia resolved. Patient still has mild headache. PHYSICAL EXAMINATION: VITAL SIGNS: T 98.3 HR 65 RR 16 BP 129/74 O2 sat 96% on RA GEN.: NAD, pleasant and cooperative HEENT: NCAT, sclera without icterus NECK: Supple SKIN AND EXTREMITIES: Warm to touch, no edema NEURO: MENTAL STATUS: Patient alert and oriented to self, place, time. Able to name the current president. Speech fluent, able to name and repeat, following all commands readily. No right and left disorientation, neglect. CRANIAL NERVES II THROUGH XII: II: Pupils are equal and reactive to light symmetrically. No afferent pupillary defect. Visual tesfaye are intact. III, IV, : No ptosis. Extraocular movements full. No nystagmus. V: Facial sensation intact from V1-3. VII. No clear facial asymmetry. VIII: Hearing intact to finger rub bilaterally. IX, X: Symmetric palate elevation. XI: Shoulder shrug intact. XII: Tongue midline without fasciculation or atrophy. MOTOR: Normal bulk/tone. No pronator drift or tremor. Strength is 5/5 in LUE and LLE. RUE 4+/5. RLE limited by hip pain (patient on MRI showing muscle tear) but grossly 4+/5. No satelliting of UEs. Meyers's negative SENSORY: Intact to light touch, temperature in all 4 extremities. Romberg is negative. REFLEXES: 2+ throughout. Toes are downgoing. COORDINATION: Finger to nose and heel to jiang intact. No dysmetria. GAIT: Narrow-based and stable. L side preference due to pain in her R hip. Patient states she cannot walk on her toes or heels due to feeling off balance, but able to tandem walk with some caution. DIAGNOSTIC TESTING: LABORATORY: WBC 7.9 hemoglobin 16.1 platelet 357 sodium 139 potassium 4.6 chloride 106 bicarb 25 BUN 13 creatinine 1.16 glucose 92 AST 29 ALT 40 alk phos 92 troponin <0.012 Total cholesterol 253 LDL 145 HDL 59 triglycerides 245 urinalysis negative TSH 2.560 IMAGING: MRI brain without contrast 09/26/2019: There is diffuse confluent white matter changes in the periventricular white matter bilaterally. Considering etiology such as ADEM CT head without contrast 09/25/2019: No acute process. CTA head and neck with and without contrast 09/25/2019: Unremarkable study TTE 09/26/19: SR. EF >55%. RV/LV/LA/RA sizes are normal. Cardiac monitoring: No atrial arrhythmia ASSESSMENT: 44-year-old woman with past medical history of fibromyalgia, GERD, migraines, aortic aneurysm, endometriosis, anxiety/depression, presenting to [facility] for R hip pain, consulting Neurology for R-sided numbness/tingling/pain along with some weakness. Differential diagnosis at this time include complex migraine vs. acute stroke vs. autoimmune such as multiple sclerosis. Recommend stroke work-up/management. MRI brain w/o contrast showing no acute stroke. MRI brain read mentions ADEM, but not likely. Could be from patien's prolonged history of migraine. ASCVD score low. Her symptoms most likely from her complex migraine causing paresthesia and weakness. RECOMMENDATIONS: 1. Okay for discharge home today 2. Continue with nortryiptiline 25mg qhs 3. Continue with MgOx 400mg BID (discussed with patient about decreasing dose if her diarrhea gets worse 4. Patient will purchase Vitamin B2 400mg qday for migraine prophylaxis 5. Patient needs to follow up with outpatient Neurologist within 2-3 weeks of discharge.
--- NOTE | 2019-09-27 11:42 | ECHOF ---
Referral Reason:possible stroke MEASUREMENTS -------- HEIGHT: 175.3 cm WEIGHT: 93.4 kg BP: RVIDd: 2.8 cm (< 3.3) IVSd: 1.2 cm (0.6 - 1.1) LVIDd: 4.1 cm (3.9 - 5.3) LVPWd: 1.2 cm (0.6 - 1.1) IVSs: 1.6 cm LVIDs: 2.9 cm LVPWs: 1.6 cm LA Diam: 3.3 cm (2.7 - 3.8) LAESV Index (A-L): 16.67 ml/m Ao Diam: 3.5 cm (2.0 - 3.7) AV Cusp: 2.3 cm (1.5 - 2.6) MV EXCURSION: 19.436 mm (> 18.000) MV EF SLOPE: 94 mm/s (70 - 150) EPSS: 0.5 cm MV E Scotty: 0.77 m/s MV DecT: 208 ms MV A Scotty: 0.58 m/s MV E/A Ratio: 1.32 RAP: 5.00 mmHg RVSP: 19.39 mmHg TAPSE: 21.02 mm FINDINGS -------- Sinus rhythm. This was a technically good study. The left ventricular size is normal. There is borderline concentric left ventricular hypertrophy. Overall left ventricular systolic function is normal with, an EF between 60 - 65 %. The right ventricle is normal in size. Normal LA size by volume 22+/-6 ml/m2. The right atrium is normal in size. Interatrial and interventricular septum intact. The aortic valve is trileaflet and appears structurally normal. Trace amount of aortic regurgitatio n. The mitral valve is normal. Mild mitral regurgitation is present. Mild tricuspid regurgitation present. Right ventricular systolic pressure is normal at < 35 mmHg. There is no pulmonic regurgitation present. The aortic root size is normal. Normal inferior vena cava with normal inspiratory collapse consistent with estimated right atrial pre ssure of 5 mmHg. There is no pericardial effusion. CONCLUSIONS -------- 1. Sinus rhythm. 2. This was a technically good study. 3. The left ventricular size is normal. 4. There is borderline concentric left ventricular hypertrophy. 5. Overall left ventricular systolic function is normal with, an EF between 60 - 65 %. 6. The right ventricle is normal in size. 7. Normal LA size by volume 22+/-6 ml/m2. 8. The right atrium is normal in size. 9. Interatrial and interventricular septum intact. 10. The aortic valve is trileaflet and appears structurally normal. 11. Trace amount of aortic regurgitation. 12. The mitral valve is normal. 13. Mild mitral regurgitation is present. 14. Mild tricuspid regurgitation present. 15. Right ventricular systolic pressure is normal at < 35 mmHg. 16. There is no pulmonic regurgitation present. 17. The aortic root size is normal. 18. Normal inferior vena cava with normal inspiratory collapse consistent with estimated right atrial pressure of 5 mmHg. 19. There is no pericardial effusion. DRYWALL PROFESSIONAL: Gisella Chaidez RDCS
--- NOTE | 2019-09-27 12:46 | P.DS ---
Providers Date of admission: 09/25/19 23:18 Attending physician: Sanchez Sadler Consults: 09/25/19 23:17 Consult Physician Routine Consulting Provider: Dianne Chowdhury Consult Reason/Comments: cva Do you want consulting provider notified?: Yes 09/26/19 11:09 Consult Physician Routine Consulting Provider: Kamaljit Lee Consult Reason/Comments: Right hip pain Do you want consulting provider notified?: Yes Primary care physician: Helen Newberry Joy Hospital Course: 44-year-old female came in with complaints of right-sided weakness including involving the face and right hand and leg along with numbness her symptoms are improving at this time patient doesn't have any significant weakness now oh although patient has very mild weakness as per neurologist in the right hand. Patient does have past medical history of fibromyalgia and the partial tear of the gluteus medius muscle in the past patient was also complaining of tingling and numbness in the right side of body. Patient does have history of migraine. Neurology validate the patient they believe migraine may be contributing to her symptoms her migraine involves visual loss transient. had a CAT scan of the abdomen and CT angios the head and neck both of which are negative patient will undergo MRI as recommended by neurology and patient will be started on nortriptyline. Patient denied any fever chills patient was a valid by orth opedic surgery in the past for issues with the gluteus medius muscle patient was on Cymbalta for for peripheral neuropathy and neuropathic pain which she stopped. 09/27/2019 Patient had an MRI of the brain which showed some nonspecific white matter changes. It was read as ADEM but neurology validate the patient patient they believe patient these findings are nonspecific. Patient is cleared for discharge. Patient will be discharged on nortriptyline and Cymbalta patient is ALLERGIC to nonsteroidal anti-inflammatories. Patient right hip pain and back pain with radiculopathy for which patient will follow with orthopedic surgery as an outpatient. Patient has hyperlipidemia for which patient will be started on statin. Neurology is not recommending any antiplatelet therapy at this time as her symptoms are related to be secondary to migraine PHYSICAL EXAMINATION: GENERAL: The patient is alert and oriented x3, not in any acute distress. Well developed, well nourished. HEENT: Pupils are round and equally reacting to light. EOMI. No scleral icterus. No conjunctival pallor. Normocephalic, atraumatic. No pharyngeal erythema. No thyromegaly. CARDIOVASCULAR: S1 and S2 present. No murmurs, rubs, or gallops. PULMONARY: Chest is clear to auscultation, no wheezing or crackles. ABDOMEN: Soft, nontender, nondistended, normoactive bowel sounds. No palpable organomegaly. MUSCULOSKELETAL: No joint swelling or deformity. EXTREMITIES: No cyanosis, clubbing, or pedal edema. NEUROLOGICAL: Gross neurological examination did not reveal any focal deficits. SKIN: No rashes. Assessment and Plan Plan: -weakness on the right side of the body transient presently much better no significant weakness at this time, MRI did not show any stroke patient probably has migraine -fibromyalgiapatient will discharge on nortriptyline and Cymbalta -Depression -History of migraine -Partial tear in the gluteus medius for which orthopedic surgery evaluated the patient is stated was in the past presently appears to have some back pain with radiculopathy although able to tamponade without any trouble patient will be discharged -hyperlipidemia patient will be on statin Patient Condition at Discharge: Fair Plan - Discharge Summary New Discharge Prescriptions: New DULoxetine HCL [Cymbalta] 20 mg PO DAILY #30 capsule. Atorvastatin [Lipitor] 40 mg PO HS #30 tab Magnesium Oxide [Mag-Ox] 400 mg PO BID #60 tab Nortriptyline [Pamelor] 25 mg PO HS #30 cap No Action Dm/Acetaminophen/Doxylamine [Vicks Nyquil Cold-Flu Liquid] 30 ml PO HS PRN PRN Reason: Cold Symptoms Discharge Medication List Dm/Acetaminophen/Doxylamine [Vicks Nyquil Cold-Flu Liquid] 30 ml PO HS PRN 09/25/19 [History] Atorvastatin [Lipitor] 40 mg PO HS #30 tab 09/27/19 [Rx] DULoxetine HCL [Cymbalta] 20 mg PO DAILY #30 capsule. 09/27/19 [Rx] Magnesium Oxide [Mag-Ox] 400 mg PO BID #60 tab 09/27/19 [Rx] Nortriptyline [Pamelor] 25 mg PO HS #30 cap 09/27/19 [Rx] Follow up Appointment(s)/Referral(s): Michelle Fierro, PAC [PHYSICIAN CROSS COUNTRY COACH] - 10/11/19 3:45 pm Susan Cruz MD [Primary Care Provider] - 10/03/19 10:45 am Alvina Pearce MD [Medical Doctor] - 1 Week Discharge Disposition: HOME SELF-CARE
[2019-09-27 14:31] LABS: Hemoglobin A1C 5.8 % (4.0-6.0)
== END 2019-09-27 13:50 | disposition home or self-care (01) ==
LOC: EC 19:45 → INTOOBSV 23:18 → 3SCARD 23:18 → UNDODISIN 09-27 13:50
PROVIDERS: ADMIT Hospitalist; ATTEND Hospitalist
DX: R53.1 Weakness (principal); M79.7 Fibromyalgia; E78.5 Hyperlipidemia, unspecified; R20.0 Anesthesia of skin; R20.2 Paresthesia of skin; G89.29 Other chronic pain; E78.00 Pure hypercholesterolemia, unspecified; R03.0 Elevated blood-pressure reading, without diagnosis of hypertension; S76.311A Strain of muscle, fascia and tendon of the posterior muscle group at thigh level, right thigh, initial encounter; M54.10 Radiculopathy, site unspecified; K21.9 Gastro-esophageal reflux disease without esophagitis; F32.9 Major depressive disorder, single episode, unspecified; F41.9 Anxiety disorder, unspecified; G43.909 Migraine, unspecified, not intractable, without status migrainosus; M54.81 Occipital neuralgia; H54.7 Unspecified visual loss; I71.9 Aortic aneurysm of unspecified site, without rupture; Z87.11 Personal history of peptic ulcer disease; Z90.49 Acquired absence of other specified parts of digestive tract; Z87.891 Personal history of nicotine dependence; Z88.8 Allergy status to other drugs, medicaments and biological substances; Z88.0 Allergy status to penicillin; Z88.6 Allergy status to analgesic agent; Z88.1 Allergy status to other antibiotic agents; E66.9 Obesity, unspecified; Z68.30 Body mass index [BMI] 30.0-30.9, adult; Z83.49 Family history of other endocrine, nutritional and metabolic diseases
CPT/HCPCS: 96361 ×2; 96360; 99285; 36415; 93005; 93306; 97162; 97535; 97166; 92523; 80061; 80053; 80048; 84443; 82550; 84484; 85025 ×2; 85610; 85730; 81003; 83036; 73630; 70496; 70450; 70498; 70551; G0378 ×3; Q9967

== ENCOUNTER → 2020-03-17 | Outpatient (CLI) | payer OTHER ==
--- NOTE | 2020-03-17 15:38 | XR ---
EXAMINATION TYPE: XR lumbar spine 2 or 3V DATE OF EXAM: 03/17/2020 COMPARISON: 09/18/2014 HISTORY: Pain, fall TECHNIQUE: Three-view lumbar spine FINDINGS: There 5 lumbar-type vertebral bodies. The pedicles are intact. Disc heights are preserved. Vertebral body heights are preserved. Alignment is normal. IMPRESSION: 1. Normal three-view lumbar spine
--- NOTE | 2020-03-17 15:38 | XR ---
EXAMINATION TYPE: XR Hip Complete RT DATE OF EXAM: 03/17/2020 COMPARISON: None HISTORY: Fall, pain TECHNIQUE: 2 view right hip FINDINGS: Femoral head articulates with the acetabulum. Joint spaces preserved. No acute fractures or dislocations are evident. IMPRESSION: 1. Normal 2 view right hip
== END | disposition home or self-care (01) ==
LOC: RADXRMAIN 15:08
PROVIDERS: ATTEND Emergency Medicine
DX: S76.011A Strain of muscle, fascia and tendon of right hip, initial encounter (principal); S33.5XXA Sprain of ligaments of lumbar spine, initial encounter
CPT/HCPCS: 72100; 73502

== ENCOUNTER → 2020-06-23 | Outpatient (CLI) | payer OTHER ==
--- NOTE | 2020-06-24 07:48 | CT ---
EXAMINATION TYPE: CT soft tissue neck w con DATE OF EXAM: 06/23/2020 COMPARISON: Cervical spine 06/15/2018 HISTORY: Oropharyngeal dysphagia and pain x1 month. CT DLP: 497.2 mGycm CONTRAST: Patient injected with 100ml mL of Isovue 300. TECHNIQUE: Axial images at 3 mm thick sections. Reconstructed images in the coronal plane and sagitt al plane are reviewed. FINDINGS: Limited CT sections are obtained the lung apices. The lung apices appear clear. CT neck: The torus tubarius and fossa of Rosenmuller are normal. Recoating Machine Operator spaces are normal. Para nasal sinuses and mastoid air cells are clear. Parotid glands appear normal and symmetrical. Submandibular glands, are normal. Parapharyngeal spac es are normal. No suspicious adenopathy is evident. A small left submandibular lymph node is present . Small submental lymph nodes are present. The hypopharynx appears within normal limits. Vocal cord level appear symmetrical. Thyroid as visualized is normal. Osseous structures are normal. Small web may be present on the left proximal internal carotid artery. Consider carotid artery ultrasound for additional evaluation. IMPRESSIONS: 1. No suspicious abnormality to account oral pharyngeal dysphagia and pain. 2. Small web may be at the proximal left internal carotid artery. Consider carotid Doppler ultrasound for additional evaluation.
== END ==
LOC: RADCTMAIN 19:22
PROVIDERS: ATTEND Family Medicine
DX: R13.12 Dysphagia, oropharyngeal phase (principal)
CPT/HCPCS: 70491; Q9967

== ENCOUNTER → 2020-07-21 | Outpatient (CLI) | payer OTHER ==
--- NOTE | 2020-07-22 11:42 | MR ---
EXAMINATION TYPE: MR brain wo con, MR angio head wo con DATE OF EXAM: 07/21/2020 COMPARISON: MRI brain 09/26/2019. CTA head and neck 09/25/2019. HISTORY: Chronic intractable headache, vision changes TECHNIQUE: Multiplanar, multisequence images of the brain and brainstem is performed without intravenous contras t. Time of flight images focusing on the [place] of [place] were performed without contrast. MIP images we re generated and obtained on a separate workstation. FINDINGS: Diffusion weighted images demonstrate no evidence of a recent infarct or other diffusion abnormality. There is redemonstrated periventricular confluent T2 FLAIR white matter changes. There is no involv ement of the corpus callosum. There are redemonstrated tiny T2 FLAIR hyperintensities of the right fr ontal (701:24) and right parietal (701:23) subcortical white matter. There is a redemonstrated tiny f ocus of T2 FLAIR hyperintense focus within the right posterior limb of the internal capsule (701:14). There is a tiny T2 hyperintense focus seen within the left temporal lobe which is likely artifact or a blood vessel (701:9), with no corresponding T2 abnormality, and not felt to represent gliosis or w pauline matter change. There is no extra-axial fluid collection. The ventricular system and cisternal s paces are normal in size and appearance. The brain volume is age appropriate. Midline structures demonstrate normal morphology. The craniocervical junction appears within normal limits. Post contrast images demonstrate no abnormal enhancement. The dural venous sinuses appear pa tent. The visualized sinuses are clear. The globes and optic nerves are grossly symmetric and unremar kable. MRA imaging demonstrates a complete [place]. There is no occlusion, significant stenosis, or aneurysm seen. IMPRESSION: Redemonstrated confluent periventricular white matter T2 FLAIR hyperintensities, with tiny T2 FLAIR h yperintense foci within the right posterior limb of the internal capsule and right frontal and right parietal subcortical white matter. Findings are persistent and not significantly changed from 019 MRI brain comparison, now making previous differential diagnosis of ADEM unlikely. Primary differ ential considerations include demyelinating process such as multiple sclerosis. Given patient's age a nd symptoms, CADASIL could be considered although less likely. Hypertensive changes are also less lik andrey due to persistent appearance.
== END | disposition home or self-care (01) ==
LOC: RADMRIMAIN 08:56
PROVIDERS: ATTEND Family Medicine
DX: R90.89 Other abnormal findings on diagnostic imaging of central nervous system (principal); R51 Headache; H53.9 Unspecified visual disturbance
CPT/HCPCS: 70544; 70551

== ENCOUNTER → 2020-08-26 | Outpatient (CLI) | payer OTHER ==
[2020-08-26 21:04] LABS: Total Protein,CSF 31 mg/dL (12-60)
[2020-08-26 22:38] LABS: Appearance,CSF Clear; CSF Tube Number 4; CSF Tube Volume 3; Nucleated Cells, CSF 1 u/L (0-5); Red Blood Cell,CSF 0 u/L (0-10)
== END | disposition home or self-care (01) ==
LOC: LABWHC1 12:00
PROVIDERS: ATTEND Psychiatry & Neurology Neurology
DX: R42 Dizziness and giddiness (principal); R51 Headache
CPT/HCPCS: 36415; 82040; 82042; 82784; 83873; 83916; 84157; 87801; 89050

== ENCOUNTER 2021-01-14 16:03 | Emergency (ER) | payer OTHER ==
[2021-01-14 16:21] VITALS: RESP 18; TEMP 98.8
[2021-01-14] MEDS ORDERED: MORPHINE SULFATE 4 MG/ML SYRINGE IV STA (17:46)
[2021-01-14] MEDS ORDERED: SODIUM CHLORIDE 0.9% 1,000 ML IV STA ×2 (17:46→19:38)
[2021-01-14] MEDS ORDERED: ONDANSETRON 4 MG/2 ML VIAL IVP STA (17:46)
--- NOTE | 2021-01-14 17:50 | ED ---
Abdominal Pain HPI - General Chief Complaint: Abdominal Pain Stated Complaint: Back/Abd Pain Time Seen by Provider: 01/14/21 17:40 Source: patient, RN notes reviewed Mode of arrival: wheelchair Limitations: no limitations - History of Present Illness Initial Comments: Patient is a 45-year-old female that presents to emergency Department with right-sided flank pain that wraps around under her rib cage. She did note that she does not have her gallbladder, has a history of pseudotumor cerebri. She does follow up with a specialist for her headaches and her primary care. Her primary care noted that she has decreased kidney function in told to avoid certain medications. She noted that her doctor that follows her for pseudotumor cerebri isn't following recommendations. She'll that she has 8 out of 10 pain currently is unrelieved with any attempts. States the [place] Soft touch to her right flank causes pain. sHe did note that she has been nauseous and vomits several times, she has not vomited today but she been nauseous all day. She denied any chest pain shortness of breath constipation diarrhea fever fatigue chills lightheadedness dizziness. - Related Data Home Medications Medication Instructions Recorded Confirmed Dm/Acetaminophen/Doxylamine [Vicks 30 ml PO HS PRN 09/25/19 09/25/19 Nyquil Cold-Flu Liquid] Previous Rx's Medication Instructions Recorded Atorvastatin [Lipitor] 40 mg PO HS #30 tab 09/27/19 DULoxetine HCL [Cymbalta] 20 mg PO DAILY #30 capsule. 09/27/19 Magnesium Oxide [Mag-Ox] 400 mg PO BID #60 tab 09/27/19 Nortriptyline [Pamelor] 25 mg PO HS #30 cap 09/27/19 Allergies Allergy/AdvReac Type Severity Reaction Status Date / Time Penicillins Allergy Unknown YEAST Verified 01/14/21 16:21 INFECTIONS ciprofloxacin [From Cipro] Allergy Anaphylaxis Verified 01/14/21 16:21 metronidazole [From Flagyl] Allergy Anaphylaxis Verified 01/14/21 16:21 naproxen Allergy Anaphylaxis Verified 01/14/21 16:21 meloxicam [From Mobic] AdvReac Unknown Slurred Verified 01/14/21 16:21 speech, muscle jerking, chest pain diphenhydramine HCl AdvReac Rapid Verified 01/14/21 16:21 [From Benadryl] Heart Rate ibuprofen [From Motrin] AdvReac stomach Verified 01/14/21 16:21 ulcers ketorolac tromethamine AdvReac Hallucinati Verified 01/14/21 16:21 [From Toradol] ons Review of Systems ROS Statement: Those systems with pertinent positive or pertinent negative responses have been documented in the HPI. ROS Other: All systems not noted in ROS Statement are negative. Past Medical History Past Medical History: Chest Pain / Angina, Fibromyalgia, GERD/Reflux, Neurologic Disorder Additional Past Medical History / Comment(s): Migraines- occiptal neuralgia, Aortic aneurysm, endometreosis, anxiety/depression. "heart skips a beat" states hx of stomach ulcers. pt stated her norm is loose/ diarrhea stools sometimes 3 or more a day. History of Any Multi-Drug Resistant Organisms: None Reported, C-DIFF Date of last positivie culture/infection: 2012 MDRO Source:: unknown Past Surgical History: Appendectomy, Section, Cholecystectomy, Heart Catheterization, Hysterectomy, Orthopedic Surgery Additional Past Surgical History / Comment(s): lt ankle reconstructive sx,rt knee surgery.egd/colonoscopy w/bx-pt stated did'nt gets results. Past Anesthesia/Blood Transfusion Reactions: Motion Sickness, Postoperative Nausea & Vomiting (PONV) Past Psychological History: Anxiety, Depression Past Alcohol Use History: None Reported Past Drug Use History: Marijuana - Past Family History Mother Family Medical History: Thyroid Disorder Additional Family Medical History / Comment(s): hashimotos' Father Family Medical History: No Reported History Additional Family Medical History / Comment(s): "healthy" General Exam Limitations: no limitations General appearance: alert, in no apparent distress, in distress Head exam: Present: atraumatic, normocephalic, normal inspection Eye exam: Present: normal appearance, PERRL, EOMI. Absent: scleral icterus, conjunctival injection, periorbital swelling ENT exam: Present: normal exam, mucous membranes moist Neck exam: Present: normal inspection. Absent: tenderness, meningismus, lymphadenopathy Respiratory exam: Present: normal lung sounds bilaterally. Absent: respiratory distress, wheezes, rales, rhonchi, stridor Cardiovascular Exam: Present: regular rate, normal rhythm, normal heart sounds. Absent: systolic murmur, diastolic murmur, rubs, gallop, clicks GI/Abdominal exam: Present: soft, normal bowel sounds. Absent: distended, tenderness, guarding, rebound, rigid Extremities exam: Present: normal inspection, full ROM, normal capillary refill. Absent: tenderness, pedal edema, joint swelling, calf tenderness Back exam: Present: normal inspection, CVA tenderness (R) Neurological exam: Present: alert, oriented X3, CN II-XII intact Psychiatric exam: Present: normal affect, normal mood Skin exam: Present: warm, dry, intact, normal color. Absent: rash Course Vital Signs 01/14/21 01/14/21 16:17 18:08 Temperature 98.8 F Pulse Rate 91 87 Respiratory 18 18 Rate Blood Pressure 141/88 137/105 O2 Sat by Pulse 100 97 Oximetry - Reevaluation(s) Reevaluation #1: 01/14/21 19:37 Upon reevaluation patient is still uncomfortable and in pain. She noted that daughter has worked in the past but has been a while since she taken it. Medical Decision Making - Medical Decision Making 45-year-old female complaining of right-sided flank pain that radiates around the front to abdomen. Labs, ULTRASOUND of the kidneys, KUB, pain medication, antiemetic medication, 1 L normal saline given as bolus ordered. Ultrasound and KUB both both negative for any acute changes. Labs unremarkable. Case discussed with Dr. Jordan, was decided the patient could discharge home. - Lab Data Result diagrams: 01/14/21 17:57 01/14/21 17:57 Lab Results 01/14/21 01/14/21 01/14/21 Range/Units 17:57 17:57 17:57 WBC 9.9 (3.8-10.6) k/uL RBC 5.25 (3.80-5.40) m/uL Hgb 15.7 (11.4-16.0) gm/dL Hct 47.2 H (34.0-46.0) % MCV 90.0 (80.0-100.0) fL MCH 29.8 (25.0-35.0) pg MCHC 33.1 (31.0-37.0) g/dL RDW 12.4 (11.5-15.5) % Plt Count 319 (150-450) k/uL MPV 6.9 Neutrophils % 55 % Lymphocytes % 39 % Monocytes % 3 % Eosinophils % 1 % Basophils % 1 % Neutrophils # 5.4 (1.3-7.7) k/uL Lymphocytes # 3.9 (1.0-4.8) k/uL Monocytes # 0.3 (0-1.0) k/uL Eosinophils # 0.1 (0-0.7) k/uL Basophils # 0.1 (0-0.2) k/uL Sodium 138 (137-145) mmol/L Potassium 4.0 (3.5-5.1) mmol/L Chloride 106 (98-107) mmol/L Carbon Dioxide 22 (22-30) mmol/L Anion Gap 10 mmol/L BUN 16 (7-17) mg/dL Creatinine 1.04 (0.52-1.04) mg/dL Est GFR (CKD-EPI)AfAm 76 (>60 ml/min/1.73 sqM) Est GFR (CKD-EPI)NonAf 66 (>60 ml/min/1.73 sqM) Glucose 95 (74-99) mg/dL Calcium 10.1 (8.4-10.2) mg/dL Total Bilirubin 0.5 (0.2-1.3) mg/dL AST 27 (14-36) U/L ALT 37 H (4-34) U/L Alkaline Phosphatase 104 (38-126) U/L Total Protein 7.8 (6.3-8.2) g/dL Albumin 4.6 (3.5-5.0) g/dL Amylase 63 (30-110) U/L Lipase 129 (23-300) U/L Urine Color Light Yellow Urine Appearance Clear (Clear) Urine pH 5.5 (5.0-8.0) Ur Specific [place] 1.011 (1.001-1.035) Urine Protein Negative (Negative) Urine Glucose (UA) Negative (Negative) Urine Ketones Negative (Negative) Urine Blood Negative (Negative) Urine Nitrite Negative (Negative) Urine Bilirubin Negative (Negative) Urine Urobilinogen <2.0 (<2.0) mg/dL Ur Leukocyte Esterase Trace H (Negative) Urine RBC 1 (0-5) /hpf Urine WBC 2 (0-5) /hpf Ur Squamous Epith Cells 2 (0-4) /hpf Urine Mucus Occasional H (None) /hpf - Radiology Data Radiology results: report reviewed, image reviewed Nonacute abdomen. No change. No evidence of renal mass or obstruction no ureteral jets were seen during the exam. Disposition Clinical Impression: Flank pain Disposition: HOME SELF-CARE Condition: Stable Instructions (If sedation given, give patient instructions): Abdominal Pain (ED) Additional Instructions: Please return to the Emergency Department if symptoms worsen or any other concerns. Follow-up primary care 1-2 days. Take [id number] pain medication for management. Call primary care to refill necessary medications. Is patient prescribed a controlled substance at d/c from ED?: No Referrals: Susan Cruz MD [Primary Care Provider] - 1-2 days Time of Disposition: 20:09
[2021-01-14 18:10] VITALS: BP 137/105; PULSE 87
[2021-01-14 18:11] LABS: Basophils # (A) 0.1 k/uL (0-0.2); Basophils % (A) 1 %; Eosinophils # (A) 0.1 k/uL (0-0.7); Eosinophils % (A) 1 %; HCT 47.2 % (34.0-46.0); HGB 15.7 gm/dL (11.4-16.0); Lymphocytes # (A) 3.9 k/uL (1.0-4.8); Lymphocytes % (A) 39 %; MCH 29.8 pg (25.0-35.0); MCHC 33.1 g/dL (31.0-37.0); Mean Platelet Volume 6.9; Monocytes # (A) 0.3 k/uL (0-1.0); Monocytes % (A) 3 %; Neutrophils # (A) 5.4 k/uL (1.3-7.7); Neutrophils % (A) 55 %; Platelet Count 319 k/uL (150-450); RBC 5.25 m/uL (3.80-5.40); RDW 12.4 % (11.5-15.5); WBC 9.9 k/uL (3.8-10.6)
[2021-01-14 18:25] LABS: Albumin 4.6 g/dL (3.5-5.0); Calcium 10.1 mg/dL (8.4-10.2); Total Bilirubin 0.5 mg/dL (0.2-1.3); Total Protein 7.8 g/dL (6.3-8.2)
--- NOTE | 2021-01-14 18:30 | XR ---
EXAMINATION TYPE: XR KUB DATE OF EXAM: 01/14/2021 COMPARISON: 07/14/2013 HISTORY: Pain TECHNIQUE: 2 views upright FINDINGS: There is no sign of intestinal obstruction or pneumoperitoneum. Fecal pattern is normal. Grace ng bases are clear. There are clips from cholecystectomy. There is no sign of a mass. IMPRESSION: Nonacute abdomen. No change.
--- NOTE | 2021-01-14 18:47 | US ---
EXAMINATION TYPE: US kidneys/renal and bladder DATE OF EXAM: 01/14/2021 COMPARISON: CT CLINICAL HISTORY: Right flank pain. EXAM MEASUREMENTS: Right Kidney: 10.1 x 3.4 x 3.3 cm Left Kidney: 10.5 x 5.4 x 5.4 cm Right Kidney: No hydronephrosis or masses seen Left Kidney: No hydronephrosis or masses seen Bladder: wnl Bilateral Jets seen: No There is no evidence for hydronephrosis at this point in time. No nephrolithiasis is seen. No dc s are identified. The urinary bladder is anechoic. Bilateral ureteral jets are seen. IMPRESSION: No evidence of renal mass or obstruction. No ureteral jets were seen during the exam.
[2021-01-14] MEDS ORDERED: HYDROmorphone 1 MG/ML 1 ML SYRINGE IVP STA (19:37)
[2021-01-14 19:51] LABS: Appearance,Urine Clear (Clear); Bilirubin,Urine Negative (Negative); Blood,Urine Negative (Negative); Color,Urine Light Yellow; Glucose,Urine (UA) Negative (Negative); Ketones,Urine Negative (Negative); Leukocyte Esterase,Urine Trace (Negative); Mucus,Urine Occasional /hpf; Nitrite,Urine Negative (Negative); PH, Urine 5.5 (5.0-8.0); Protein,Urine Negative (Negative); RBC,Urine 1 /hpf (0-5); Specific Gravity,Urine 1.011 (1.001-1.035); Squamous Epithelial Cell,Urine 2 /hpf (0-4); Urobilinogen,Urine <2.0 mg/dL (<2.0); WBC,Urine 2 /hpf (0-5)
== END 2021-01-14 20:50 | disposition home or self-care (01) ==
LOC: EC 16:03
DX: R10.9 Unspecified abdominal pain (principal); Z88.0 Allergy status to penicillin; Z88.1 Allergy status to other antibiotic agents; Z88.6 Allergy status to analgesic agent; Z88.8 Allergy status to other drugs, medicaments and biological substances; Z90.89 Acquired absence of other organs; Z90.49 Acquired absence of other specified parts of digestive tract; Z90.710 Acquired absence of both cervix and uterus
CPT/HCPCS: 36415; 80053; 82150; 83690; 85025; 81001; 74018; 76770; 99284; 96374; 96375 ×2; 96361 ×2; J2270; J2405; J1170

== ENCOUNTER → 2021-03-09 | Outpatient (CLI) | payer OTHER ==
[2021-03-09 14:28] LABS: Appearance,Urine Clear (Clear); Bilirubin,Urine Negative (Negative); Blood,Urine Negative (Negative); Color,Urine Yellow; Glucose,Urine (UA) Negative (Negative); Ketones,Urine Negative (Negative); Leukocyte Esterase,Urine Negative (Negative); Nitrite,Urine Negative (Negative); PH, Urine 5.5 (5.0-8.0); Protein,Urine Trace (Negative); Specific Gravity,Urine 1.023 (1.001-1.035); Urobilinogen,Urine <2.0 mg/dL (<2.0)
[2021-03-09 19:20] LABS: African American GFR (CKD) 70.7 (60.0-200.0); Albumin 4.6 g/dL (3.80-4.90); Albumin/Globulin Ratio 2.3 (1.60-3.17); Anion Gap 8.1 mmol/L (4.00-12.00); BUN/Creat Ratio 10.91 Ratio (12.00-20.00); Calcium 9.5 mg/dL (8.7-10.3); Carbon Dioxide 22.9 mmol/L (21.6-31.8); Potassium 4.1 mmol/L (3.5-5.5); Total Bilirubin 0.4 mg/dL (0.3-1.2); Total Protein 6.6 g/dL (6.2-8.2)
[2021-03-09 19:23] LABS: Basophils # (A) 0.03 X 10*3/uL (0.00-0.10); Basophils % (A) 0.7 %; Eosinophils # (A) 0.01 X 10*3/uL (0.04-0.35); Eosinophils % (A) 0.2 %; HCT 44.5 % (37.2-46.3); HGB 14.2 g/dL (12.0-15.0); Lymphocytes # (A) 2.34 X 10*3/uL (0.90-5.00); Lymphocytes % (A) 55.8 %; MCH 29.6 pg (27.0-32.0); MCHC 31.9 g/dL (32.0-37.0); MCV 92.7 fL (80.0-97.0); Mean Platelet Volume 10.4 fL (9.5-12.2); Monocytes # (A) 0.27 X 10*3/uL (0.20-1.00); Monocytes % (A) 6.4 %; Neutrophils # (A) 1.53 X 10*3/uL (1.80-7.70); Neutrophils % (A) 36.7 %; Platelet Count 272 X 10*3/uL (140-440); RDW 13.2 % (11.5-14.5); WBC 4.19 X 10*3/uL (4.50-10.00)
[2021-03-10 01:30] LABS: INR 0.94 (0.90-1.11); Partial Thromboplastin Time 29.3 sec (23.5-31.0); Prothrombin Time 10.3 sec (9.9-11.9)
== END | disposition home or self-care (01) ==
LOC: LABWHC1 13:26
PROVIDERS: ATTEND Neurological Surgery
DX: G93.2 Benign intracranial hypertension (principal)
CPT/HCPCS: 36415; 80053; 81003; 85025; 85610; 85730

== ENCOUNTER → 2022-01-04 | Outpatient (CLI) | payer OTHER ==
--- NOTE | 2022-01-04 11:23 | MM ---
Reason for exam: clinical finding. Last mammogram was performed 5 years and 5 months ago. History: Patient is postmenopausal. Family history of breast cancer in 2 grandmothers. Benign US biopsy breast VAD LT of the left breast, August 06, 2016. Benign US biopsy breast VAD LT of the left breast, July 20, 2016. Benign excisional biopsy of the right breast, August 08, 2001. Indicated problem(s): non-bloody discharge in both breasts. Physical Findings: Nurse did not find any significant physical abnormalities on exam. MG Diagnostic Mammo w CAD TALAT Bilateral CC and MLO view(s) were taken. Prior study comparison: August 06, 2016, left breast MG diagnostic mammo LT wo CAD. July 09, 2016, bilateral MG diagnostic mammo w CAD TALAT. There are scattered fibroglandular densities. Previous mammotome biopsy in the left breast x 2. There is chronic nodularity in the left breast. No significant new findings when compared with previous films. These results were verbally communicated with the patient and result sheet given to the patient on 01/04/22. ASSESSMENT: Incomplete: need additional imaging evaluation, BI-RAD 0 RECOMMENDATION: Ultrasound of both breasts. (for white and green/yellow discharge)
--- NOTE | 2022-01-04 11:25 | USB ---
Reason for exam: additional evaluation requested from abnormal screening. History: Patient is postmenopausal. Family history of breast cancer in 2 grandmothers. Benign US biopsy breast VAD LT of the left breast, August 06, 2016. Benign US biopsy breast VAD LT of the left breast, July 20, 2016. Benign excisional biopsy of the right breast, August 08, 2001. US Breast BILAT Right complete breast ultrasound includes all four quadrants, the retroareolar region and axilla. Finding demonstrates no cystic or solid lesion seen. Left complete breast ultrasound includes all four quadrants, the retroareolar region and axilla. Finding demonstrates no cystic or solid lesion seen. These results were verbally communicated with the patient and result sheet given to the patient on 01/04/22. ASSESSMENT: Negative, BI-RAD 1 RECOMMENDATION: Routine screening mammogram of both breasts in 1 year. Manage patient on a clinical basis.
== END | disposition home or self-care (01) ==
LOC: RADMAMWWP 09:33
PROVIDERS: ATTEND Family Medicine
DX: R92.8 Other abnormal and inconclusive findings on diagnostic imaging of breast (principal); N64.4 Mastodynia; Z78.0 Asymptomatic menopausal state; Z80.3 Family history of malignant neoplasm of breast
CPT/HCPCS: 77066

== ENCOUNTER → 2022-03-16 | Outpatient (CLI) | payer OTHER | END | disposition home or self-care (01) | LOC: LABWHC1 11:34 | PROVIDERS: ATTEND Psychiatry & Neurology Neurology | DX: Z53.9 Procedure and treatment not carried out, unspecified reason (principal) ==

== ENCOUNTER → 2023-06-03 | Outpatient (CLI) | payer OTHER ==
--- NOTE | 2023-06-03 12:57 | XR ---
EXAMINATION TYPE: XR abdomen 2V DATE OF EXAM: 06/03/2023 COMPARISON: NONE HISTORY: pain TECHNIQUE: One view abdominal series FINDINGS: The osseous structures are intact. The bowel gas pattern is nonspecific. Lung bases are clear. Ther e are surgical clips in the right upper quadrant. There is a GROUNDMAN shunt catheter with tip coiled in the right lower quadrant calcifications in the pelvis appear vascular. IMPRESSION: 1. Nonspecific abdomen.
== END | disposition home or self-care (01) ==
LOC: RADXRWHC 12:22
PROVIDERS: ATTEND Nurse Practitioner Family
DX: R10.30 Lower abdominal pain, unspecified (principal)
CPT/HCPCS: 74019

== ENCOUNTER → 2024-01-10 | Outpatient (CLI) | payer OTHER ==
--- NOTE | 2024-01-10 13:59 | MM ---
Reason for Exam: Clinical finding. Last mammogram was performed 2 year(s) and 0 month(s) ago. Patient History: Menarche at age 14. First Full-Term at age 21. Right ovary removed at age 37. Hysterectomy at age 37. Postmenopausal. 08/06/2016, Benign Core Biopsy on the left side. 07/20/2016, Benign Core Biopsy on the left side. 08/08/2001, Benign Excisional Biopsy on the right side. Maternal grandmother had breast cancer. Maternal grandmother had breast cancer. Risk Values: Josselyn 5 year model risk: 1.7%. NCI Lifetime model risk: 12.8%. Prior Study Comparison: 07/11/2001 Bilateral Diagnostic Mammogram, [facility]. 07/11/2001 Right Diagnostic Ultrasound, [facility]. 08/04/2001 Left Screening Mammogram, [facility]. 07/23/2005 Bilateral Diagnostic Mammogram, [facility]. 07/09/2016 Bilateral Diagnostic Mammogram, [facility]. 07/09/2016 Bilateral Diagnostic Ultrasound, [facility]. 08/06/2016 Left Diagnostic Mammogram, [facility]. 01/04/2022 Bilateral Diagnostic Mammogram, [facility]. 01/04/2022 Bilateral Diagnostic Ultrasound, [facility]. Tissue Density: There are scattered fibroglandular densities. Findings: Analyzed By CAD. Palpable marker placed high posterior right breast. Chronic nodularity posterior upper outer quadrant right breast. 2 microvascular clips left breast from prior biopsies. No significant change from prior exams. The patient reports bilateral green nipple discharge. Overall Assessment: Incomplete: need additional imaging evaluation, BI-RAD 0 Management: Diagnostic Breast Ultrasound of both breasts. Bilateral subareolar as well as right-sided palpable. Electronically signed and approved by: Neil Najera M.D. Radiologist
--- NOTE | 2024-01-10 14:27 | USB ---
Reason for Exam: Clinical finding. Patient History: Menarche at age 14. First Full-Term at age 21. Right ovary removed at age 37. Hysterectomy at age 37. Postmenopausal. 08/06/2016, Benign Core Biopsy on the left side. 07/20/2016, Benign Core Biopsy on the left side. 08/08/2001, Benign Excisional Biopsy on the right side. Maternal grandmother had breast cancer. Maternal grandmother had breast cancer. Risk Values: Josselyn 5 year model risk: 1.7%. NCI Lifetime model risk: 12.8%. Technique: Method: Targeted. Prior Study Comparison: 07/09/2016 Bilateral Diagnostic Mammogram, [facility]. 08/06/2016 Left Diagnostic Mammogram, [facility]. 01/04/2022 Bilateral Diagnostic Mammogram, [facility]. Findings: The area of palpable concern of the right breast, the axilla of both breasts and the retroareolar of both breasts were scanned. Targeted subareolar ultrasound on both sides for green nipple discharge.. Additional scanning superior posterior right breast at the patient's palpable site. No solid or cystic lesion or axillary adenopathy is seen. No duct ectasia. Overall Assessment: Benign, BI-RAD 2 Management: Screening Mammogram of both breasts in 1 year. Further clinical management of patient's benign green nipple discharge. Suspicious discharge that would warrant further evaluation includes spontaneous clear/bloody discharge localized to a single pore on the nipple. Further clinical management of any suspicious palpable abnormalities. A clinical breast exam by your physician is recommended on an annual basis and results should be correlated with mammographic findings. This exam should not preclude additional follow-up of suspicious palpable abnormalities. Results were given to the patient verbally at the time of exam. Electronically signed and approved by: Neil Najera M.D. Radiologist
== END | disposition home or self-care (01) ==
LOC: RADMAMWWP 13:35
PROVIDERS: ATTEND Family Medicine
DX: R92.8 Other abnormal and inconclusive findings on diagnostic imaging of breast (principal); R92.323 Mammographic fibroglandular density, bilateral breasts; Z80.3 Family history of malignant neoplasm of breast; Z78.0 Asymptomatic menopausal state
CPT/HCPCS: 77066; G0279; 77062

== ENCOUNTER → 2024-10-19 | Outpatient (CLI) | payer OTHER ==
--- NOTE | 2024-10-19 11:13 | FL ---
EXAMINATION TYPE: FL barium swallow DATE OF EXAM: 10/19/2024 10:50 AM COMPARISON: . Chest radiograph from same day. CLINICAL INDICATION:Female, 49 years old with history of R13.12 DYSPHAGIA J02.9 ACUTE PHARYNGITIS; PH H, TECHNIQUE: The procedure was explained and patient history elicited. All patient questions were ans wered prior to start of procedure. Multiple spot fluoroscopic images of the esophagus were obtained a fter the oral ingestion of effervescent crystals and liquid barium as the contrast agent. Fluoroscopic time: sec Fluoroscopic images: Radiographs taken: DAP: [id number] FINDINGS: The esophagus demonstrates normal primary and secondary peristalsis. The esophageal mucosa is smooth without evidence of focal stricture, ulceration, or abnormal outpouching. 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 IMPRESSION: 1. Normal esophagram. 2. Cricopharyngeal bar noted. [facility], , 10/19/2024 11:10 AM
--- NOTE | 2024-10-19 11:32 | US ---
EXAMINATION TYPE: US thyroid st tissue head/neck DATE OF EXAM: 10/19/2024 COMPARISON: NONE CLINICAL INDICATION: Female, 49 years old with history of R13.12 DYSPHAGIA J02.9 ACUTE PHARYNGITIS; S welling in neck bilaterally TECHNIQUE: Grayscale and color Doppler imaging of the thyroid gland. FINDINGS: GLAND SIZE: Right Lobe: 3.6x0.9x1.5cm Overall Parenchyma: heterogeneous Left Lobe: 4.1x1.1x1.4cm Overall Parenchyma: heterogeneous Isthmus Thickness: 0.4cm NODULES RIGHT: # of nodules measured on right: 1 1. 0.2x0.2x0.2cmcystic or almost completely cystic, hypoechoic nodule, which is wider than tall, wit h smooth margins, without echogenic foci. LEFT: # of nodules measured on left: 1 1. 0.4x0.3x0.4cmcystic or almost completely cystic, hypoechoic nodule, which is wider than tall, wit h smooth margins, without echogenic foci. ISTHMUS: # of nodules measured in the isthmus: 0 Bilateral neck scanned, no evidence of lymphadenopathy. IMPRESSION: SubCentimeter thyroid nodularity is nonspecific. 2017 ACR TI-RADS LEVEL: *Highest TI-RADS level nodule reported [email or web address] [facility], , 10/19/2024 11:30 AM
== END | disposition home or self-care (01) ==
LOC: RADFLMAIN 10:05
PROVIDERS: ATTEND Family Medicine
DX: R13.12 Dysphagia, oropharyngeal phase (principal); J02.9 Acute pharyngitis, unspecified; R93.3 Abnormal findings on diagnostic imaging of other parts of digestive tract; E04.1 Nontoxic single thyroid nodule; J98.4 Other disorders of lung
CPT/HCPCS: 74220; 76536

== ENCOUNTER → 2025-03-22 | Outpatient (CLI) | payer OTHER ==
--- NOTE | 2025-03-22 11:17 | MM ---
Reason for Exam: Clinical finding. Last mammogram was performed 1 year(s) and 2 month(s) ago. Patient History: Menarche at age 14. First Full-Term at age 21. Right ovary removed at age 37. Hysterectomy at age 37. Postmenopausal. 08/06/2016, Benign Core Biopsy on the left side. 07/20/2016, Benign Core Biopsy on the left side. 08/08/2001, Benign Excisional Biopsy on the right side. Maternal grandmother had breast cancer. Maternal grandmother had breast cancer. Risk Values: Josselyn 5 year model risk: 1.6%. NCI Lifetime model risk: 12.5%. Tissue Density: There are scattered areas of fibroglandular density. Findings: Analyzed By CAD. No evidence for mass or distortion. No suspicious microcalcifications. Overall Assessment: Benign, BI-RAD 2 Management: Screening Mammogram of both breasts in 1 year. . Results were given to the patient verbally at the time of exam. Patient should continue monthly self-breast exams. A clinical breast exam by your physician is recommended on an annual basis. This exam should not preclude additional follow-up of suspicious palpable abnormalities. Note on Josselyn scores and lifetime risk: 1. A Josselyn score greater than 3% is considered moderate risk. If this is the case, consider specialist referral to assess eligibility for a risk reducing agent. 2. If overall lifetime risk for the development of breast cancer is 20% or higher, the patient may qualify for future screening with alternating mammogram and breast MRI. [facility], , 03/22/2025 11:15 AM. Electronically signed and approved by: Jonathan Davila M.D. Radiologis
--- NOTE | 2025-03-22 12:23 | CT ---
EXAMINATION TYPE: CT soft tissue neck w con CT DLP: 1564.70 mGycm, Automated exposure control for dose reduction was used. DATE OF EXAM: 03/22/2025 11:26 AM COMPARISON: Thyroid ultrasound 10/19/2024, CT soft tissue neck 06/23/2020. CLINICAL INDICATION:Female, 49 years old with history of I71.20 thoracic aneurysm; PHH, pt states nec k feels firm and weird when swallowing TECHNIQUE: Standard enhanced CT of the neck following intravenous administration of 100 cc of Isovue 300. Axial sections with coronal and sagittal reformats were obtained. FINDINGS: Brain: INTERNATIONAL TRADE ANALYST shunt catheter identified with distal tip appearing to terminate within the region of the l eft lateral ventricular body. No visualized hydrocephalus with slitlike appearing ventricles. Orbits: Unremarkable Sinuses: Grossly unremarkable. Suprahyoid Neck: The oropharynx, oral cavity, parapharyngeal and retropharyngeal spaces are clear and symmetric. The nasopharynx is unremarkable. Infrahyoid Neck: The larynx, hypopharynx, and supraglottic area are clear and symmetric. Parotid Glands: Unremarkable. Submandibular Glands: Unremarkable. Musculoskeletal: No acute osseous pathology. Lymph nodes: No pathologically enlarged lymph nodes greater than 1 cm short axis identified. Vascular structures: Visualized major arteries are patent without evidence of aneurysm. Thoracic Inlet/airway: Airway is patent. The lung apices are clear. Soft tissues/Thyroid: Thyroid is unremarkable. INTERNATIONAL TRADE ANALYST shunt catheter identified within the right neck ext ending into the anterior mid chest subcutaneous tissues. Other: none. IMPRESSION: No CT evidence to correlate with patient's symptomology. [facility], , 03/22/2025 12:21 PM
--- NOTE | 2025-03-22 13:40 | CT ---
EXAMINATION TYPE: CT angio chest CT DLP: 1564.70 mGycm, Automated exposure control for dose reduction was used. DATE OF EXAM: 03/22/2025 11:26 AM COMPARISON: CT soft tissue neck 03/22/2025, CTA chest 06/05/2018. CLINICAL INDICATION:Female, 49 years old with history of aneurysm; thoracic aneurysm TECHNIQUE/CONTRAST: CTA scan of the thorax is performed without and with IV Contrast, patient injected with 100ml mL of I sovue 370. 3D reconstructed images are created on an independent workstation and reviewed.. FINDINGS: Lungs/Pleura: No evidence of focal consolidation, pleural effusion or pneumothorax. No suspicious pul monary nodule or mass. Airway: Large airways are patent. Heart: Size within normal limits.No pericardial effusion. No significant coronary artery calcificatio ns. Vasculature: Conventional three-vessel aortic arch. No intramural hematoma or dissection. Stable fusi form aneurysmal dilatation of the aortic root measuring up to 4.0 cm and of the ascending thoracic ao rta measuring up to 4.1 cm. No extension into the arch. Mediastinum: No evidence of adenopathy. Musculoskeletal: No acute osseous abnormalities Soft Tissues: Right neck METALLURGICAL ENGINEERING TECHNICIAN shunt catheter identified coursing into the anterior chest soft tissues a t midline and then intraperitoneally in the upper abdomen. Couple of biopsy clips within the left conor ast. Lower neck: No significant findings. Upper Abdomen: The gallbladder is surgically absent. Stable right hepatic dome 1.4 cm indeterminate h ypodense lesion. Additional stable subcentimeter hypodense right hepatic dome foci which are too smal l to characterize. These are likely benign due to stability from 2018. There are a few right hepatic lobe tiny stable enhancing foci. Probable vascular shunts and favored to be benign due to stability. The visualized liver is diffusely hypoattenuating. Consistent with steatosis. IMPRESSION: Stable aneurysmal dilatation of the aortic root and ascending thoracic aorta. No evidence for intramu ral hematoma or dissection. [facility], , 03/22/2025 1:38 PM
== END | disposition home or self-care (01) ==
LOC: RADCTMAIN 09:54
PROVIDERS: ATTEND Family Medicine
DX: R92.8 Other abnormal and inconclusive findings on diagnostic imaging of breast (principal); I71.20 Thoracic aortic aneurysm, without rupture, unspecified; R05.1 Acute cough; R92.323 Mammographic fibroglandular density, bilateral breasts; Z78.0 Asymptomatic menopausal state; Z80.3 Family history of malignant neoplasm of breast
CPT/HCPCS: 77066; 70491; 71275; G0279; Q9967; 77062

== ENCOUNTER → 2025-06-11 | Outpatient (CLI) | payer OTHER ==
[2025-06-11 15:21] LABS: NT-Pro-B-Type Natriuretic Pept <36 pg/mL (0-125)
[2025-06-11 15:31] LABS: ALT 30 U/L (8-44); AST 21 U/L (13-35); Albumin 4.6 g/dL (3.8-4.9); Albumin/Globulin Ratio 2.19 Ratio (1.60-3.17); Alkaline Phosphatase 81 U/L (41-126); Anion Gap 13.30 mmol/L (4.00-12.00); BUN/Creat Ratio 11.00 Ratio (12.00-20.00); Blood Urea Nitrogen 13.2 mg/dL (9.0-27.0); Calcium 9.9 mg/dL (8.7-10.3); Carbon Dioxide 25.7 mmol/L (21.6-31.8); Chloride 104 mmol/L (96-109); Cholesterol 292.00 mg/dL (0.00-200.00); Globulin 2.1 g/dL (1.6-3.3); Glucose 108 mg/dL (70-110); HDL Cholesterol 91.20 mg/dL (40.00-60.00); LDL Cholesterol,Calculated 177.0 mg/dL (0.0-131.0); Potassium 5.1 mmol/L (3.5-5.5); Sodium 143 mmol/L (135-145); Total Protein 6.7 g/dL (6.2-8.2); Triglycerides 119.00 mg/dL (0.00-149.00); VLDL Calculation 23.80 mg/dL (5.00-40.00)
[2025-06-11 15:36] LABS: HCT 45.6 % (37.2-46.3); HGB 14.7 g/dL (12.0-15.0); MCH 29.5 pg (27.0-32.0); MCHC 32.2 g/dL (32.0-37.0); MCV 91.4 FL (80.0-97.0); NRBC Per 100 WBC 0 X 10*3/uL (0.00-0.01); Platelet Count 353 X 10*3/uL (140-440); RBC 4.99 X 10*6/uL (4.10-5.20); RDW 13.3 % (11.5-14.5); WBC 7.00 X 10*3/uL (4.50-10.00)
== END | disposition home or self-care (01) ==
LOC: LABWHC1 10:27
PROVIDERS: ATTEND Student in an Organized Health Care Education/Training Program
DX: I50.9 Heart failure, unspecified (principal); E11.9 Type 2 diabetes mellitus without complications; E78.5 Hyperlipidemia, unspecified; E03.9 Hypothyroidism, unspecified; D72.9 Disorder of white blood cells, unspecified; R79.89 Other specified abnormal findings of blood chemistry
CPT/HCPCS: 36415; 80053; 80061; 83036; 83880; 84443; 85027